=== PATIENT | male | born 1965 | race Caucasian/White ===

== ENCOUNTER 2017-09-10 09:12 | Outpatient (CLI) | payer BC ==
--- NOTE | 2017-09-10 11:09 | PRG ---
DATE OF SERVICE: 09/10/2017 HISTORY: Mr. Adrian Fonseca is a very pleasant 52-year-old gentleman who presents to the [facility] for evaluation of plantar wounds of the right and left feet. The patient previously stated that he was admitted to [facility] on 04/19/2017 for left lower extremity cellulitis . The patient stated that he was admitted after antibiotic injections as an outpatient failed to tr eat his left lower extremity cellulitis adequately. The patient stated that during his hospital sta y, the plantar wound of his right foot developed. The patient stated that he has had a chronic ulce ration of his left midfoot for several years. He stated that this ulceration developed 1 year after surgery by Dr. John for Charcot foot and ankle in 10/2013. Since the patient's last visit, Mr. Fonseca has been performing dressing changes of Aquacel AG for both ulcerations on a daily basis afte r cleansing and irrigation. PHYSICAL EXAMINATION: VITAL SIGNS: Temperature 98.0, pulse 84, respirations 18, blood pressure 135/92. Accu-Chek 363. EXTREMITIES: The ulceration of the plantar surface of the right foot appears to be healing without complications or any signs of infection. The ulceration of the plantar surface of the left foot roxana sures approximately 1.6 x 1.3 cm. The dimensions of the wound at the time of the patient's last vis it were approximately 1.7 x 2.0 cm. Granulation tissue is present within the wound margins. Nonvia ble tissue at the periphery of the wound was debrided with an excisional partial thickness debrideme nt with the use of scissors. No purulent drainage is associated with the wound. No erythema of the skin surrounding the wound is present. No maceration of the skin of the periwound is noted. No si gnificant edema of the left foot is present on exam today. ASSESSMENT AND PLAN: 1. Plantar ulcerations of right and left feet as described above for both ulcerations. Dressing ch anges of Aquacel AG, 4 x 4s and Kerlix are to be performed on a daily basis after cleansing and irri gation. Arrangements will be made again for the home delivery of dressing supplies. I will see Mr. Fonseca again in two weeks. The patient has been fitted with shoes to provide for more optimal offl oading of the left plantar ulcerations. At the time of the patient's visit in 2 weeks, consideratio n will be given to treatment with a bioengineered skin substitute, specifically Apligraf. 2. Diabetes mellitus. The patient's Accu-Chek in clinic today is 363. The patient has been remind ed that for optimal wound healing, his blood glucoses should remain below 150. 3. Charcot's arthropathy on the left. 4. Peripheral vascular disease. 5. Left lower extremity cellulitis. The patient has received IV antibiotics as per Dr. Marvel trujillo of Infectious Diseases.
[2017-09-10] MEDS ORDERED: Sodium Chloride 0.9% 15 ML NEB ONE (17:01)
== END 2017-09-10 09:13 | disposition home or self-care (01) ==
LOC: WCC 09:12
PROVIDERS: ATTEND Family Medicine
DX: L97.519 Non-pressure chronic ulcer of other part of right foot with unspecified severity (principal); L97.529 Non-pressure chronic ulcer of other part of left foot with unspecified severity; E11.621 Type 2 diabetes mellitus with foot ulcer; M14.672 Charcot's joint, left ankle and foot; I73.9 Peripheral vascular disease, unspecified; L03.116 Cellulitis of left lower limb
CPT/HCPCS: 36416; 97597; A4218

== ENCOUNTER 2017-09-22 10:08 | Outpatient (CLI) | payer BC ==
--- NOTE | 2017-09-22 12:16 | PRG ---
DATE OF SERVICE: 09/22/2017 HISTORY: Mr. Adrian Fonseca is a very pleasant 52-year-old gentleman who presents to the [facility] for evaluation of plantar wounds of the right and left feet. The patient previously stated that martha cruz was admitted to [facility] on 04/19/2017 for left lower extremity celluliti s. The patient stated that he was admitted after antibiotic injections as an outpatient fail to timoteo at his left lower extremity cellulitis adequately. The patient stated that during his hospital stay , the plantar wound of his right foot developed. The patient stated that he has had a chronic ulcer ation of his left midfoot for several years. He stated that this ulceration developed 1 year after surgery by Dr. John for Charcot foot and ankle in 10/2013. Since the patient's last visit, Mr. Martha zeng had been performing dressing changes of Aquacel AG for both ulcerations on a daily basis after cleansing and irrigation. Today, the patient states he was seen in [facility] for cellulitis of th e left lower extremity. PHYSICAL EXAMINATION: VITAL SIGNS: Temperature 97.6, pulse 75, respirations 18, blood pressure 132/71. Accu-Chek 237. EXTREMITIES: The ulceration of the plantar surface of the right foot appears to be healing without complications or any signs of infection. The ulceration of the plantar surface of the left foot roxana sures approximately 1.5 x 1.5 cm. The dimensions of the wound at the time of the patient's last vis it were approximately 1.6 x 1.3 cm. Granulation tissue is present within the wound margins. Nonvia ble tissue at the periphery of the wound was debrided with an excisional partial-thickness debrideme nt with the use of scissors. No purulent drainage is associated with the wound. No erythema of the skin surrounding the wound is present. Maceration of the skin of the periwound is noted. No signi ficant edema of the left foot is present on exam today. Apligraf was applied to the ulceration of t he plantar surface of the left foot followed by Adaptic touch, a gauze bolster, 4 x 4's, Kerlix, and an Constantine bandage. ASSESSMENT AND PLAN: 1. Plantar ulcerations of right and left feet. Dressing changes of Aquacel AG, 4 x 4s and Kerlix f or the ulceration of the plantar surface of the right foot will be continued on a daily basis after cleansing and irrigation. Apligraf was applied to the ulceration of the plantar surface of the left foot. The dressings applied in clinic today are to be discontinued in 1 week and dressing changes of Aquacel AG, 4 x 4s and Kerlix resumed on a daily basis after cleansing and irrigation. I will se e Mr. Fonseca again after he has returned from his trip which will be in approximately 6 weeks. Over this period of time, the patient will be taking clindamycin 150 mg 2 p.o. t.i.d. 2. Diabetes mellitus. The patient's Accu-Chek in clinic today is 237. The patient has been remind ed that for optimal wound healing, his blood glucoses should remain below 150. 3. Charcot's arthropathy on the left. 4. Peripheral vascular disease. 5. Left lower extremity cellulitis. The patient has received IV antibiotics as per Dr. Marvel trujillo of Infectious Diseases. As stated above, the patient was also seen in [facility] ER for left lower extremity cellulitis over the past weekend.
[2017-09-22] MEDS ORDERED: Sodium Chloride 0.9% 15 ML NEB ONE (22:47)
== END 2017-09-22 10:09 | disposition home or self-care (01) ==
LOC: WCC 10:08
PROVIDERS: ATTEND Family Medicine
DX: E11.621 Type 2 diabetes mellitus with foot ulcer (principal); L97.429 Non-pressure chronic ulcer of left heel and midfoot with unspecified severity; L97.419 Non-pressure chronic ulcer of right heel and midfoot with unspecified severity; E11.51 Type 2 diabetes mellitus with diabetic peripheral angiopathy without gangrene; L03.116 Cellulitis of left lower limb; M14.60 Charcot's joint, unspecified site
CPT/HCPCS: 15275; 36416; A4218; Q4101-KX-JC

== ENCOUNTER 2017-12-15 08:33 | Outpatient (CLI) | payer BC ==
--- NOTE | 2017-12-15 18:45 | PRG ---
DATE OF SERVICE: 12/15/2017 HISTORY: Mr. Adrian Fonseca is a very pleasant 52-year-old gentleman, who presents to the [facility] for evaluation of plantar wounds of the right and left feet. The patient states that he returned h ome from his trip on 11/16/2017. He states that he subsequently became ill with the flu. He states that 4 days after becoming ill with the flu, he developed an infectious process of his left lower ext remity for which he was seen at [facility]. He states that he received vancomycin intravenously of 3 doses, which were 12 hours apart. The patient states that he is taking p.o. antibiotics as per Dr. Marvel Ovalle of Infectious Diseases. The patient states that he has a followup appointment with Dr. Ovalle later this afternoon. PHYSICAL EXAMINATION: VITAL SIGNS: Temperature 97.5, respirations 18, blood pressure 132/79. Accu-Chek is 197. EXTREMITIES: An ulceration of the plantar surface of the right foot is present, which measures appro ximately 2.0 x 0.8 cm. The ulceration of the plantar surface of the left midfoot measures approximat afia 2.1 x 1.5 cm. The dimensions of the wound at the time of the patient's last visit were approxima tely 1.5 x 1.5 cm. Granulation tissue is present within the wound margins. Nonviable tissue at the periphery of the wound was debrided with an excisional partial thickness debridement with the use of scissors. No purulent drainage is associated with the wound. No erythema of the skin surrounding th e wound is present. No maceration of the skin of the periwound is noted. A dorsalis pedis pulse is easily palpable on the left. No significant edema of the left foot is present on exam today. ASSESSMENT AND PLAN: 1. Plantar ulcerations of right and left feet. Dressing changes of a silver containing dressing blanche l be initiated today. A 4 x 4s and Kerlix will be utilized as secondary dressings. These dressing c hanges are to be performed for the plantar ulcerations of the right and left feet on a daily basis af ter cleansing and irrigation. I will see Mr. Fonseca again after he has been seen in consultation by Dr. Chris John. At this time, consideration will be given to treatment with a bioengineered skin substitute in conjunction with negative pressure therapy. The patient understands and is in agreemen t with the preceding treatment plan. I have also discussed the treatment plan with Dr. Marvel Ovalle of Infectious Diseases. 2. Diabetes mellitus. The patient's Accu-Chek in clinic today is 197. The patient has been reminde d that for optimal wound healing, his blood glucoses should remain below 150. 3. Charcot's arthropathy on the left. 4. Peripheral vascular disease. 5. Left lower extremity cellulitis. As stated above, the patient is taking p.o. antibiotics as per Dr. Marvel Ovalle of Infectious Diseases. The patient has also received IV antibiotics after being s een at [facility].
== END 2017-12-15 08:34 | disposition home or self-care (01) ==
LOC: WCC 08:33
PROVIDERS: ATTEND Family Medicine
DX: E11.621 Type 2 diabetes mellitus with foot ulcer (principal); L97.529 Non-pressure chronic ulcer of other part of left foot with unspecified severity; L97.519 Non-pressure chronic ulcer of other part of right foot with unspecified severity; E11.610 Type 2 diabetes mellitus with diabetic neuropathic arthropathy; I73.9 Peripheral vascular disease, unspecified; L03.116 Cellulitis of left lower limb
CPT/HCPCS: 97602

== ENCOUNTER 2017-12-29 08:33 | Outpatient (CLI) | payer BC ==
--- NOTE | 2017-12-29 10:05 | PRG ---
DATE OF SERVICE: 12/29/2017 HISTORY: Mr. Adrian Fonseca is a very pleasant 52-year-old gentleman who presents to the Wound Center for evaluation of a plantar ulceration of the left foot. The patient has been performing dressing c hanges of Silverlon since his last visit to the Wound Center. The patient has no complaints today. He denies any fever or chills. PHYSICAL EXAMINATION: VITAL SIGNS: Temperature 98.0, pulse 101, respirations 18, blood pressure 166/94. Accu-Chek 196. EXTREMITIES: An ulceration of the plantar surface of the left foot is present which measures approxi mately 2.0 x 1.9 cm. The dimensions of the ulceration of the plantar surface of the left mid foot at the time of the patient's visit on 12/15/2017 were approximately 2.1 x 1.5 cm. Granulation tissue i s present within the wound margins. Desiccated tissue at the periphery of the wound was excised with the use of scissors. No purulent drainage is associated with the wound. No erythema of the skin loera rrounding the wound is present. No maceration of the skin of the periwound is noted. A posterior ti bial pulse is easily palpable on the left. No significant edema of the left foot is present on exam today. Dermagraft was applied to the ulceration of the plantar surface of the left foot in a single layer followed by Adaptic touch and the GranuFoam of the wound VAC. ASSESSMENT AND PLAN: 1. Plantar ulceration of left midfoot. Dermagraft was applied to the wound bed of the ulceration to day. The patient is also receiving negative pressure therapy for his ulceration. The wound VAC will be placed to settings of 125 mmHg, continuous. The patient will return to the Wound Center for a dr pugh change of the wound VAC in 3 days. I will see Mr. Fonseca again in 1 week. At this time, cons ideration will be given to another placement of Dermagraft. 2. Diabetes mellitus. The patient's Accu-Chek in clinic today is 196. The patient has been reminde d that for optimal wound healing, his blood glucoses should remain below 150. 3. Charcot's arthropathy on the left. 4. Peripheral vascular disease. 5. Left lower extremity cellulitis. The patient has taken p.o. antibiotics as per Dr. Marvel Ovalle of Infectious Diseases. The patient also received IV antibiotics after being seen at [facility].
[2017-12-29] MEDS ORDERED: Sodium Chloride 0.9% 15 ML NEB ONE (11:11)
== END 2017-12-29 08:34 | disposition home or self-care (01) ==
LOC: WCC 08:33
PROVIDERS: ATTEND Family Medicine
DX: E11.621 Type 2 diabetes mellitus with foot ulcer (principal); M14.60 Charcot's joint, unspecified site; E11.51 Type 2 diabetes mellitus with diabetic peripheral angiopathy without gangrene; L97.429 Non-pressure chronic ulcer of left heel and midfoot with unspecified severity; L03.116 Cellulitis of left lower limb
CPT/HCPCS: 15275; A4218; Q4106-KX-JC

== ENCOUNTER 2017-12-30 14:06 | Outpatient (CLI) | payer BC | END 2017-12-30 14:07 | disposition home or self-care (01) | LOC: WCC 14:06 | PROVIDERS: ATTEND Family Medicine | DX: E11.621 Type 2 diabetes mellitus with foot ulcer (principal); L97.429 Non-pressure chronic ulcer of left heel and midfoot with unspecified severity ==

== ENCOUNTER 2018-01-01 09:04 | Outpatient (CLI) | payer BC ==
[2018-01-01] MEDS ORDERED: Sodium Chloride 0.9% 15 ML NEB ONE (14:28)
== END 2018-01-01 09:05 | disposition home or self-care (01) ==
LOC: WCC 09:04
PROVIDERS: ATTEND Family Medicine
DX: E11.621 Type 2 diabetes mellitus with foot ulcer (principal); L97.529 Non-pressure chronic ulcer of other part of left foot with unspecified severity
CPT/HCPCS: 97605; A4218

== ENCOUNTER 2018-01-05 08:55 | Outpatient (CLI) | payer BC ==
[2018-01-05] MEDS ORDERED: Sodium Chloride 0.9% 15 ML NEB ONE (14:26)
== END 2018-01-05 08:56 | disposition home or self-care (01) ==
LOC: WCC 08:55
PROVIDERS: ATTEND Family Medicine
DX: E11.621 Type 2 diabetes mellitus with foot ulcer (principal); L97.429 Non-pressure chronic ulcer of left heel and midfoot with unspecified severity
CPT/HCPCS: 97605; A4218

== ENCOUNTER 2018-01-08 10:58 | Outpatient (CLI) | payer BC ==
--- NOTE | 2018-01-08 14:20 | PRG ---
DATE OF SERVICE: 01/08/2018 HISTORY: Mr. Adrian Fonseca is a very pleasant 52-year-old gentleman who presents to the Wound Center for evaluation of a plantar ulceration of the left mid foot. The patient is now receiving treatment with Dermagraft in conjunction with negative pressure therapy. The patient has no complaints today. He denies any fever or chills. PHYSICAL EXAMINATION: VITAL SIGNS: Temperature 97.4, pulse 89, respirations 18, blood pressure 172/95. Accu-Chek 197. EXTREMITIES: An ulceration of the plantar surface of the left mid foot is present, which measures ap proximately 1.6 x 1.4 cm. The dimensions of the wound at the time of the patient's visit on 12/29/19 18 were approximately 2.0 x 1.9 cm. Granulation tissue is present within the wound margins. No puru lent drainage is associated with the wound. No erythema of the skin surrounding the wound is present . Maceration of the skin of the periwound is noted. No significant edema of the left foot is presen t on exam today. Slight undermining is present from the 6 to 12 o'clock position. Dermagraft was ap plied to the ulceration of the plantar surface of the left mid foot in 2 layers followed by Adaptic t ouch and the GranuFoam of the wound VAC. The first layer of Dermagraft was loosely packed into the r egion of undermining from 6 to 12 o'clock. ASSESSMENT AND PLAN: 1. Plantar ulceration of left mid foot. Dermagraft was applied to the wound bed of the ulceration t felisha. The patient is also receiving negative pressure therapy for the ulceration. The wound VAC to be placed to settings of 125 mmHg continuous. The patient will return to the Wound Center for a dres sing change of the wound VAC in 4 days. I will see Mr. Fonseca again in one week. At this time, cons ideration will be given to another placement of Dermagraft. 2. Diabetes mellitus. The patient's Accu-Chek in clinic today is 197. The patient has been reminde d that for optimal wound healing, his blood glucoses should remain below 150. 3. Charcot's arthropathy on the left. 4. Peripheral vascular disease. 5. Left lower extremity cellulitis. The patient has taken p.o. antibiotics as per Dr. Marvel Ovalle of Infectious Diseases. The patient states that he has been treated for left lower extremity cellul itis on 4 occasions with IV antibiotics. After being seen in the Wound Center.
[2018-01-09] MEDS ORDERED: Sodium Chloride 0.9% 15 ML NEB ONE (14:35)
== END 2018-01-08 10:59 | disposition home or self-care (01) ==
LOC: WCC 10:58
PROVIDERS: ATTEND Family Medicine
DX: E11.621 Type 2 diabetes mellitus with foot ulcer (principal); L97.429 Non-pressure chronic ulcer of left heel and midfoot with unspecified severity; E11.610 Type 2 diabetes mellitus with diabetic neuropathic arthropathy; I73.9 Peripheral vascular disease, unspecified; L03.116 Cellulitis of left lower limb
CPT/HCPCS: Q4106-KX-JC

== ENCOUNTER 2018-01-12 08:55 | Outpatient (CLI) | payer BC ==
[2018-01-12] MEDS ORDERED: Sodium Chloride 0.9% 15 ML NEB ONE (09:00)
== END 2018-01-12 08:56 | disposition home or self-care (01) ==
LOC: WCC 08:55
PROVIDERS: ATTEND Family Medicine
DX: E11.621 Type 2 diabetes mellitus with foot ulcer (principal); L97.429 Non-pressure chronic ulcer of left heel and midfoot with unspecified severity; Z88.2 Allergy status to sulfonamides; Z88.8 Allergy status to other drugs, medicaments and biological substances
CPT/HCPCS: 36416; 97606; A4218

== ENCOUNTER 2018-01-15 08:50 | Outpatient (CLI) | payer BC ==
--- NOTE | 2018-01-15 10:57 | PRG ---
DATE OF SERVICE: 01/15/2018 HISTORY: Mr. Adrian Fonseca is a very pleasant 52-year-old gentleman who presents to the Wound Center for evaluation of an ulceration of the plantar surface of the left midfoot. The patient is receivin g treatment with Dermagraft in conjunction with negative pressure therapy. The patient states that zoie cruz tripped on his wound VAC 2 days ago. The patient presents to clinic today with the ulceration dres sed with gauze and tape. The patient has no other complaints today. He denies any fever or chills. PHYSICAL EXAMINATION: VITAL SIGNS: Temperature 98.3, pulse 85, respirations 18, blood pressure 121/75, Accu-Chek 249. EXTREMITIES: An ulceration of the plantar surface of the left midfoot is present which measures appr oximately 1.8 x 2.1 cm. The dimensions of the wound at the time of the patient's visit on 01/08/2018 were approximately 1.6 x 1.4 cm. Granulation tissue is present within the wound margins. Necrotic and nonviable tissue present within the wound margins was debrided with an excisional full-thickness debridement with the use of a curette and scissors. Desiccated tissue at the periphery of the wound was excised with the use of scissors. No purulent drainage is associated with the wound. No erythem a of the skin surrounding the wound is present. No maceration of the skin of the periwound is noted. No edema of the left foot is present on exam today. Less undermining is associated with the wound today than at the time of the patient's visit on 01/08/2018. Dermagraft was applied to the ulceratio n of the plantar surface of the left midfoot in a single layer followed by Adaptic touch and the Gran uFoam of the wound VAC. ASSESSMENT AND PLAN: 1. Plantar ulceration of left midfoot. Dermagraft was applied to the wound bed of the ulceration to day. The patient is also receiving negative pressure therapy for the ulceration. The wound VAC will be placed to settings of 125 mmHg, continuous. The patient is to continue to receive dressing bush es of the wound VAC 2 times per week here in the Wound Center. I will see Mr. Fonseca again in two we eks. At this time, consideration will be given to another placement of Dermagraft. 2. Diabetes mellitus. The patient's Accu-Chek in clinic today is 249. The patient has been reminde d that for optimal wound healing, his blood glucoses should remain below 150. 3. Charcot's arthropathy on the left. 4. Peripheral vascular disease.
== END 2018-01-15 08:51 | disposition home or self-care (01) ==
LOC: WCC 08:50
PROVIDERS: ATTEND Family Medicine
DX: E11.621 Type 2 diabetes mellitus with foot ulcer (principal); L97.429 Non-pressure chronic ulcer of left heel and midfoot with unspecified severity; M14.672 Charcot's joint, left ankle and foot; I73.9 Peripheral vascular disease, unspecified
CPT/HCPCS: 15275; 36416; Q4106-KX-JC

== ENCOUNTER 2018-01-19 09:13 | Outpatient (CLI) | payer BC ==
[~2018-01-19 09:13] MED LIST: Sodium Chloride 0.9% 15 ML NEB ONE
== END 2018-01-19 09:14 | disposition home or self-care (01) ==
LOC: WCC 09:13
PROVIDERS: ATTEND Family Medicine
DX: E11.621 Type 2 diabetes mellitus with foot ulcer (principal); L97.429 Non-pressure chronic ulcer of left heel and midfoot with unspecified severity; Z88.2 Allergy status to sulfonamides
CPT/HCPCS: 97606; A4218

== ENCOUNTER 2018-01-22 08:49 | Outpatient (CLI) | payer BC ==
[2018-01-22] MEDS ORDERED: Sodium Chloride 0.9% 15 ML NEB ONE (16:31)
== END 2018-01-22 08:50 | disposition home or self-care (01) ==
LOC: WCC 08:49
PROVIDERS: ATTEND Family Medicine
DX: E11.621 Type 2 diabetes mellitus with foot ulcer (principal); L97.429 Non-pressure chronic ulcer of left heel and midfoot with unspecified severity; Z88.2 Allergy status to sulfonamides
CPT/HCPCS: 97605; A4218

== ENCOUNTER 2018-01-26 09:02 | Outpatient (CLI) | payer BC ==
[2018-01-26] MEDS ORDERED: Sodium Chloride 0.9% 15 ML NEB ONE (19:49)
== END 2018-01-26 09:03 | disposition home or self-care (01) ==
LOC: WCC 09:02
PROVIDERS: ATTEND Family Medicine
DX: S91.302D Unspecified open wound, left foot, subsequent encounter (principal); S91.301D Unspecified open wound, right foot, subsequent encounter
CPT/HCPCS: 36416; 97605; A4218

== ENCOUNTER 2018-01-29 08:35 | Outpatient (CLI) | payer BC ==
--- NOTE | 2018-01-29 10:00 | PRG ---
DATE OF SERVICE: 01/29/2018 HISTORY: Mr. Adrian Fonseca is a very pleasant 52-year-old gentleman who presents to the Wound Center for evaluation of an ulceration of the plantar surface of the left midfoot. The patient is receivin g treatment with Dermagraft in conjunction with negative pressure therapy. Mr. Fonseca has no complai nts today. He denies any fever or chills. PHYSICAL EXAMINATION: VITAL SIGNS: Temperature 97.4, pulse 91, respirations 16, blood pressure 177/99. Accu-Chek 210. EXTREMITIES: An ulceration of the plantar surface of the left midfoot is present which measures appr oximately 2.3 x 2.1 cm. The dimensions of the wound at the time of the patient's visit on 01/15/2018 were approximately 1.8 x 2.1 cm. Granulation tissue is present within the wound margins. Necrotic and nonviable tissue present within the wound margins was debrided with an excisional full-thickness debridement with the use of scissors. Callus at the periphery of the wound was excised with the use of scissors. No purulent drainage is associated with the wound. No erythema of the skin surrounding the wound is present. Maceration of the skin of the periwound is noted. No significant edema of th e left foot is present on exam today. No undermining is associated with the wound on today's exam. Dermagraft was applied to the ulceration of the plantar surface of the left midfoot in a single layer followed by Adaptic touch and the GranuFoam of the wound VAC. ASSESSMENT AND PLAN: 1. Plantar ulceration of left midfoot. Dermagraft was applied to the wound bed of the ulceration to day. The patient is also receiving negative pressure therapy for the ulceration. The wound VAC will be placed to settings of 125 mmHg, continuous. The patient is to continue to receive dressing bush es of the wound VAC 2 times per week here in the Wound Center. I will see Mr. Fonseca again in one we ek. At this time, consideration will be given to another placement of Dermagraft. 2. Diabetes mellitus. The patient's Accu-Chek in clinic today is 210. The patient has been reminde d that for optimal wound healing, his blood glucoses should remain below 150. 3. Charcot's arthropathy on the left. 4. Peripheral vascular disease.
[2018-01-30] MEDS ORDERED: Sodium Chloride 0.9% 15 ML NEB ONE (12:25)
== END 2018-01-29 08:36 | disposition home or self-care (01) ==
LOC: WCC 08:35
PROVIDERS: ATTEND Family Medicine
DX: E11.621 Type 2 diabetes mellitus with foot ulcer (principal); L97.429 Non-pressure chronic ulcer of left heel and midfoot with unspecified severity; I73.9 Peripheral vascular disease, unspecified; M14.672 Charcot's joint, left ankle and foot
CPT/HCPCS: 15275

== ENCOUNTER 2018-02-02 08:58 | Outpatient (CLI) | payer BC | END 2018-02-02 08:59 | disposition home or self-care (01) | LOC: WCC 08:58 | PROVIDERS: ATTEND Family Medicine | DX: E11.621 Type 2 diabetes mellitus with foot ulcer (principal); L97.429 Non-pressure chronic ulcer of left heel and midfoot with unspecified severity | CPT/HCPCS: 97606; A4218 ==

== ENCOUNTER 2018-02-05 08:41 | Outpatient (CLI) | payer BC ==
[2018-02-05] MEDS ORDERED: Sodium Chloride 0.9% 15 ML NEB ONE (09:00)
--- NOTE | 2018-02-05 10:54 | PRG ---
DATE OF SERVICE: 02/05/2018 HISTORY: Mr. Adrian Fonseca is a very pleasant 52-year-old gentleman who presents to the Wound Center for evaluation of an ulceration of the plantar surface of the left midfoot. The patient is receiving treatment with Dermagraft in conjunction with negative pressure therapy. The patient has no complaints today. He denies any fever or chills. PHYSICAL EXAMINATION: VITAL SIGNS: Temperature 98.4, pulse 89, respirations 18, blood pressure 172/ 91. Accu-Chek 207. EXTREMITIES: An ulceration of the plantar surface of the left midfoot is present which measures approximately 2.8 x 2.2 cm. The dimensions of the wound at the time of the patient's visit on 01/29/2018 were approximately 2.3 x 2.1 cm. Granulation tissue is present within the wound margins. Necrotic and nonviable tissue present within the wound margins was debrided with an excisional full-thickness debridement with the use of a curet and scissors. A sample of granulation tissue was excised with the use of scissors and sent for aerobic and anaerobic cultures. No purulent drainage is associated with the wound. No erythema of the skin surrounding the wound is present. No maceration of the skin of the periwound is noted. No significant edema of the left foot is present on exam today. No undermining is associated with the wound on today's exam. Dermagraft was applied to the ulceration of the plantar surface of the left midfoot in 3 layers followed by Adaptic touch and the GranuFoam of the wound VAC. ASSESSMENT AND PLAN: 1. Plantar ulceration of left midfoot. Dermagraft was applied to the wound bed of the ulceration today. The patient is also receiving negative pressure therapy for the ulceration. The wound VAC will be placed to settings of 125 mmHg, continuous. The patient is to continue to receive dressing changes of the wound VAC 2 times per week here in the Wound Center. I will see Mr. Fonseca again in one week. At this time, consideration will be given to another placement of Dermagraft. 2. Diabetes mellitus. The patient's Accu-Chek in clinic today is 207. The patient has been reminded that for optimal wound healing, his blood glucoses should remain below 150. 3. Charcot's arthropathy on the left. 4. Peripheral vascular disease. [facility]
== END 2018-02-05 08:42 | disposition home or self-care (01) ==
LOC: WCC 08:41
PROVIDERS: ATTEND Family Medicine
DX: E11.621 Type 2 diabetes mellitus with foot ulcer (principal); L97.429 Non-pressure chronic ulcer of left heel and midfoot with unspecified severity; I73.9 Peripheral vascular disease, unspecified; M14.672 Charcot's joint, left ankle and foot
CPT/HCPCS: 15275; 87070; 87076; 87077; 87186; 87205; A4218; Q4106-KX-JC

== ENCOUNTER 2018-02-09 09:23 | Outpatient (CLI) | payer BC ==
[2018-02-09] MEDS ORDERED: Sodium Chloride 0.9% 15 ML NEB ONE (19:54)
== END 2018-02-09 09:24 | disposition home or self-care (01) ==
LOC: WCC 09:23
PROVIDERS: ATTEND Family Medicine
DX: E11.621 Type 2 diabetes mellitus with foot ulcer (principal); L97.429 Non-pressure chronic ulcer of left heel and midfoot with unspecified severity
CPT/HCPCS: 97605; A4218

== ENCOUNTER 2018-02-12 09:17 | Outpatient (CLI) | payer BC ==
--- NOTE | 2018-02-12 10:05 | PRG ---
DATE OF SERVICE: 02/12/2018 HISTORY: Mr. Adrian Fonseca is a very pleasant 52-year-old gentleman who presents to the Wound Center fo r evaluation of an ulceration of the plantar surface of the left mid foot. The patient is currently receiving treatment with Dermagraft in conjunction with negative pressure therapy. The patient has n o complaints today. He denies any fever or chills. PHYSICAL EXAMINATION: VITAL SIGNS: Temperature 98.0, pulse 85, respirations 19, blood pressure 137/84. Accu-Chek 198. EXTREMITIES: An ulceration of the plantar surface of the left mid foot is present which measures ben roximately 2.8 x 2.1 cm. The dimensions of the wound at the time of the patient's visit on 8 were approximately 2.8 x 2.2 cm. Granulation tissue is present within the wound margins. No purul ent drainage is associated with the wound. No erythema of the skin surrounding the wound is present. No maceration of the skin of the periwound is noted. No significant edema of the left foot is pres ent on exam today. No undermining is associated with the wound on exam today. Dermagraft was applie d to the ulceration of the plantar surface of the left mid foot in 3 layers followed by Adaptic touch and the GranuFoam of the wound VAC. ASSESSMENT AND PLAN: 1. Plantar ulceration of left midfoot. Dermagraft was applied to the wound bed of the ulceration to day. The patient is also receiving negative pressure therapy for the ulceration. The wound VAC will be placed to settings of 125 mmHg, continuous. The patient is to continue to receive dressing bush es of the wound VAC 2 times per week here in the Wound Center. I will see Mr. Fonseca again in 1 week . At this time, consideration will be given to another placement of Dermagraft. 2. Diabetes mellitus. The patient's Accu-Chek in clinic today is 198. The patient has been reminde d that for optimal wound healing, his blood glucoses should remain below 150. 3. Charcot's arthropathy on the left. 4. Peripheral vascular disease.
== END 2018-02-12 09:18 | disposition home or self-care (01) ==
LOC: WCC 09:17
PROVIDERS: ATTEND Family Medicine
DX: E11.621 Type 2 diabetes mellitus with foot ulcer (principal); L97.429 Non-pressure chronic ulcer of left heel and midfoot with unspecified severity; E11.610 Type 2 diabetes mellitus with diabetic neuropathic arthropathy; E11.51 Type 2 diabetes mellitus with diabetic peripheral angiopathy without gangrene; I73.9 Peripheral vascular disease, unspecified
CPT/HCPCS: 15275; Q4106-KX-JC

== ENCOUNTER 2018-02-16 08:42 | Outpatient (CLI) | payer BC ==
[2018-02-16] MEDS ORDERED: Sodium Chloride 0.9% 15 ML NEB ONE (18:58)
== END 2018-02-16 08:43 | disposition home or self-care (01) ==
LOC: WCC 08:42
PROVIDERS: ATTEND Family Medicine
DX: E11.621 Type 2 diabetes mellitus with foot ulcer (principal); L97.429 Non-pressure chronic ulcer of left heel and midfoot with unspecified severity; Z88.2 Allergy status to sulfonamides
CPT/HCPCS: 36416; 97605; A4218

== ENCOUNTER 2018-02-19 08:49 | Outpatient (CLI) | payer BC ==
[2018-02-19] MEDS ORDERED: Sodium Chloride 0.9% 15 ML NEB ONE (09:00)
--- NOTE | 2018-02-19 11:05 | PRG ---
DATE OF SERVICE: 02/19/2018 HISTORY: Mr. Adrian Fonseca is a very pleasant 52-year-old gentleman who presents to the Wound Center for evaluation of an ulceration of the plantar surface of the left midfoot. The patient is presently receiving treatment with Dermagraft in conjunction with negative pressure therapy. Mr. Fonseca has no complaints today. He denies any fever or chills. PHYSICAL EXAMINATION: VITAL SIGNS: Temperature 98.1, pulse 87, respirations 18, blood pressure 136/ 91. Accu-Chek 197. EXTREMITIES: An ulceration of the plantar surface of the left midfoot is present which measures approximately 2.6 x 2.2 cm. The dimensions of the wound at the time of the patient's visit on 02/12/2018 were approximately 2.8 x 2.1 cm. Granulation tissue is present within the wound margins. No purulent drainage is associated with the wound. No erythema of the skin surrounding the wound is present. No maceration of the skin of the periwound is noted. No significant edema of the left foot is present on exam today. No undermining is associated with the wound on today's exam. ASSESSMENT AND PLAN: 1. Plantar ulceration of left midfoot. 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 He states he will return in approximately 2 months. At this time, the resumption of therapy with Dermagraft in conjunction with the wound VAC will be considered. Until then, the patient is to perform dressing changes of Silverlon, 4 x 4s, Kerlix, and an Constantine bandage on a daily basis after cleansing and irrigation. Arrangements will also be made for the home delivery of dressing supplies prior to the patient's trip. Mr. Fonseca understands and is in agreement with the preceding treatment plan. 2. Diabetes mellitus. The patient's Accu-Chek in clinic today is 197. The patient has been reminded that for optimal wound healing, his blood glucoses should remain below 150. 3. Charcot's arthropathy on the left. 4. Peripheral vascular disease. MTDD
== END 2018-02-19 08:50 | disposition home or self-care (01) ==
LOC: WCC 08:49
PROVIDERS: ATTEND Family Medicine
DX: E11.621 Type 2 diabetes mellitus with foot ulcer (principal); L97.429 Non-pressure chronic ulcer of left heel and midfoot with unspecified severity; E11.610 Type 2 diabetes mellitus with diabetic neuropathic arthropathy; E11.51 Type 2 diabetes mellitus with diabetic peripheral angiopathy without gangrene; I73.9 Peripheral vascular disease, unspecified
CPT/HCPCS: 97605; A4218

== ENCOUNTER 2018-05-28 11:00 | Outpatient (CLI) | payer BC ==
--- NOTE | 2018-05-28 12:12 | PRG ---
DATE OF SERVICE: 05/28/2018 HISTORY: Mr. Adrian Fonseca is a very pleasant 53-year-old gentleman, who presents to the [facility] for evaluation of an ulceration of the plantar surface of the left midfoot. The patient has return ed from his trip to [facility]. The patient states that, while on the ship, he was running low on h is supply of p.o. antibiotics and was not able to take penicillin as prescribed by Dr. Ovalle. The pa leonides states that, after returning to [place], the ulceration of the plantar surface of the l eft midfoot worsened in its appearance. The patient has been performing dressing changes of Silverlo n for his wound of the plantar surface of the left midfoot. PHYSICAL EXAMINATION: VITAL SIGNS: Temperature 97.7, pulse 87, respirations 19, blood pressure 137/78. Accu-Chek 130. EXTREMITIES: An ulceration of the plantar surface of the left midfoot is present, which measures ben roximately 2.0 x 1.5 cm. Granulation tissue is present within the wound margins. No purulent draina ge is associated with the wound. Erythema of the skin surrounding the wound is present. No macerati on of the skin of the periwound is noted. Edema of the left foot is present on exam today. No bone is visible or palpable within the wound margins. ASSESSMENT AND PLAN: 1. Plantar ulceration of left midfoot. Erythema of the skin surrounding the wound is present and ar rangements will be made for MRI of the left foot with and without contrast to look for findings sugge stive of osteomyelitis. Until the results of the MRI are available, the patient has been instructed to perform dressing changes of Medihoney, gauze, ABD, and Kerlix for the ulceration of the plantar loera rface of the left midfoot. The patient will be contacted or the patient will contact the clinic in o rder to obtain the MRI results. The patient states he is now taking [facility]. The patient understands and is in agreement with the preceding treatment plan. 2. Diabetes mellitus. The patient's Accu-Chek in clinic today is 130. The patient has been reminde d that for optimal wound healing, his blood glucoses should remain below 150. 3. Charcot's arthropathy on the left. 4. Peripheral vascular disease.
== END 2018-05-28 11:01 | disposition home or self-care (01) ==
LOC: WCC 11:00
PROVIDERS: ATTEND Family Medicine
DX: E11.621 Type 2 diabetes mellitus with foot ulcer (principal); L97.429 Non-pressure chronic ulcer of left heel and midfoot with unspecified severity; E11.610 Type 2 diabetes mellitus with diabetic neuropathic arthropathy; I73.9 Peripheral vascular disease, unspecified
CPT/HCPCS: 87070; 87077; 87186; 87205; 97602

== ENCOUNTER 2018-06-01 08:18 | Outpatient (CLI) | payer BC ==
--- NOTE | 2018-06-01 11:28 | MRI ---
MR OF THE LEFT FOOT WITH AND WITHOUT CONTRAST: History: Diabetic foot ulcer. Concern for osteomyelitis. Comparison: 04-21-17 FINDINGS: 20 cc of Mulithance was administered. Susceptibility artifact along the medial aspect of the hindfoot and midfoot limits image detail. Navi on artifact also limits image detail. There is a dissecting superficial ulceration involving the plantar surface of the lateral midfoot roxana suring 3.7 x 1.6 cm with gas seen within the ulceration base just lateral to the plantar fascial band on image 12 of series 12. There is no overt change of osteomyelitis. There is prominent degenerative changes of the visualized midfoot. There is edema involving the ankle, distal foreleg and dorsal lexis t which may be related to lymphadenoma or cellulitis. IMPRESSION: 1. Dissecting plantar ulceration along the plantar aspect of the lateral midfoot with small locule of gas seen within the ulcer base. There is no overt changes of osteomyelitis. 2. Nonspecific edema within the subcutaneous tissues of the dorsal foot, ankle and distal foreleg. POS: [facility]
== END 2018-06-01 08:19 | disposition home or self-care (01) ==
LOC: MRI 08:18
PROVIDERS: ATTEND Family Medicine
DX: E11.621 Type 2 diabetes mellitus with foot ulcer (principal); L97.429 Non-pressure chronic ulcer of left heel and midfoot with unspecified severity

== ENCOUNTER 2018-06-04 11:04 | Outpatient (CLI) | payer BC ==
--- NOTE | 2018-06-04 12:29 | PRG ---
DATE OF SERVICE: 06/04/2018 HISTORY: Mr. Adrian Fonseca is a very pleasant 53-year-old gentleman who presents to the Wound Center for evaluation of an ulceration of the plantar surface of the left midfoot. The patient recently re turned from his trip to [facility]. The patient stated that while on the ship, he was running low o n his supply of p.o. antibiotics and was not able to take penicillin as prescribed by Dr. Ovalle. The patient stated that after returning to [place], the ulceration of the plantar surface of the left midfoot worsened in its appearance. Prior to being seen in the Wound Center on 05/28/2018, the patient had been performing dressing changes of Silverlon for his wound of the plantar surface of th e left midfoot. After being seen in the Wound Center, dressing changes of Medihoney, gauze, an ABD a nd Kerlix on a daily basis after cleansing and irrigation were initiated. MRI of the left midfoot sh owed no evidence of overt osteomyelitis. The patient reports significant drainage associated with hi s wound with the use of Medihoney. The patient has also been prescribed a course of p.o. Levaquin b ased upon the results of tissue cultures obtained on 05/28/2018. PHYSICAL EXAMINATION: VITAL SIGNS: Temperature 97.9, pulse 85, respirations 20, blood pressure 139/84. Accu-Chek 252. EXTREMITIES: An ulceration of the plantar surface of the left midfoot is present, which measures ben roximately 2.8 x 2.5 cm. Granulation tissue is present within the wound margins. No purulent draina ge is associated with the wound. No cellulitis of the left midfoot is appreciated. No maceration of the skin of the periwound is noted. No significant edema of the left foot is present on exam today. No bone is visible or palpable within the wound margins. ASSESSMENT AND PLAN: 1. Plantar ulceration of left midfoot. Hydrofera Blue followed by an ABD and Kerlix will be applied to the ulceration today. The patient has been reminded to continue penicillin and Levaquin as previ ously prescribed. I will see Mr. Fonseca again in 1 week. At this time, consideration will be given to treatment with a bioengineered skin substitute. The patient understands and is in agreement with the preceding treatment plan. 2. Diabetes mellitus. The patient's Accu-Chek in clinic today is 252. The patient has been reminde d that for optimal wound healing, his blood glucoses should remain below 150. 3. Charcot's arthropathy on the left. 4. Peripheral vascular disease.
== END 2018-06-04 11:05 | disposition home or self-care (01) ==
LOC: WCC 11:04
PROVIDERS: ATTEND Family Medicine
DX: E11.621 Type 2 diabetes mellitus with foot ulcer (principal); L97.429 Non-pressure chronic ulcer of left heel and midfoot with unspecified severity; I73.9 Peripheral vascular disease, unspecified; E11.610 Type 2 diabetes mellitus with diabetic neuropathic arthropathy
CPT/HCPCS: 36416; 97602

== ENCOUNTER 2018-06-10 11:14 | Outpatient (CLI) | payer BC ==
--- NOTE | 2018-06-10 14:08 | PRG ---
DATE OF SERVICE: 06/10/2018 HISTORY: Mr. Adrian Fonseca is a very pleasant 53-year-old gentleman who presents to the Wound Center for evaluation of an ulceration of the plantar surface of the left midfoot. The patient recently re turned from his trip to [facility]. The patient stated that while on the ship he was running low on his supply of p.o. antibiotics and was not able to take penicillin as prescribed by Dr. Ovalle. The patient stated that after returning to [place], the ulceration of the plantar surface of the left midfoot worsened in its appearance. Prior to being seen in the Wound Center on 05/28/2018 the robb luu had been performing dressing changes of Silverlon for his wound of the plantar surface of the left midfoot. After being seen in the Wound Center, dressing changes of Medihoney, gauze, an ABD, an d Kerlix on a daily basis after cleansing and irrigation were initiated. MRI of the left midfoot farhana wed no evidence of overt osteomyelitis. The patient reported significant drainage associated with hi s wound with the use of Medihoney. The patient was previously prescribed a course of p.o. Levaquin based upon the results of tissue cultures obtained on 05/28/2018. PHYSICAL EXAMINATION: VITAL SIGNS: Temperature 97.7, pulse 79, respirations 22, blood pressure 135/81, Accu-Chek 95. EXTREMITIES: An ulceration of the plantar surface of the left midfoot is present which measures appr oximately 2.9 x 2.8 cm. Granulation tissue is present within the wound margins. No purulent drainag e is associated with the wound. Copious serous drainage is, however, associated with the wound. No cellulitis of the left midfoot is appreciated. No maceration of the skin of the periwound is noted. Edema of the left foot and lower leg is present on exam today. No bone is visible or palpable withi n the wound margins. A sample of EpiFix was applied to the ulceration of the plantar surface of the left midfoot. This sample was given to the patient by the company. The ulceration was then dressed with gauze followed by an ABD and Kerlix. Offloading of the wound was achieved with the application of adhesive felt to the plantar surface of the left foot. ASSESSMENT AND PLAN: 1. Plantar ulceration of left midfoot. EpiFix was applied to the wound bed of the ulceration today. The patient has been reminded to continue penicillin and Levaquin as previously prescribed. Once t he patient has completed the course of Levaquin he is to begin clindamycin 300 mg #30 one p.o. t.i.d. x10 days. The patient understands and is in agreement with the preceding treatment plan. I will se e Mr. Fonseca again in 1 week. At this time, consideration will be given to another treatment with a bioengineered skin substitute. Arrangements will also be made for the initiation of negative pressur e therapy with dressing changes of the wound VAC 2 times per week here in the Wound Center. 2. Diabetes mellitus. The patient's Accu-Chek in clinic today is 95. The patient has been reminded that for optimal wound healing, his blood glucoses should remain below 150. 3. Charcot's arthropathy on the left. 4. Peripheral vascular disease.
== END 2018-06-10 11:15 | disposition home or self-care (01) ==
LOC: WCC 11:14
PROVIDERS: ATTEND Family Medicine
DX: E11.621 Type 2 diabetes mellitus with foot ulcer (principal); L97.429 Non-pressure chronic ulcer of left heel and midfoot with unspecified severity; I73.9 Peripheral vascular disease, unspecified; M14.672 Charcot's joint, left ankle and foot
CPT/HCPCS: 97602

== ENCOUNTER 2018-06-17 11:28 | Outpatient (CLI) | payer BC ==
--- NOTE | 2018-06-17 13:43 | PRG ---
DATE OF SERVICE: 06/17/2018 HISTORY: Mr. Adrian Fonseca is a very pleasant 53-year-old gentleman who presents to the Wound Center for evaluation of an ulceration of the plantar surface of the left midfoot. The patient recently re turned from a trip to [facility] and the patient stated that while on the ship, he was running low o n his supply of p.o. antibiotics and was not able to take penicillin as prescribed by Dr. Ovalle. The patient stated that after returning to [place], the ulceration of the plantar surface of the left midfoot worsened in its appearance. Prior to being seen in the Wound Center on 05/28/2018, the patient had been performing dressing changes of Silverlon for his wound of the plantar surface of th e left midfoot. After being seen in the Wound Center, dressing changes of Medihoney, gauze, ABD, and Kerlix on a daily basis after cleansing and irrigation were initiated. MRI of the left midfoot show ed no evidence of overt osteomyelitis. The patient reported significant drainage associated with his wound with the use of Medihoney. The patient has been prescribed Levaquin and clindamycin for his p lantar wound based upon the results of tissue cultures obtained on 05/28/2018. At the time of the cristian coyle's last visit, EpiFix was applied to the wound bed of the ulceration. PHYSICAL EXAMINATION: VITAL SIGNS: Temperature 97.6, pulse 87, respirations 22, blood pressure 171/95. Accu-Chek 225. EXTREMITIES: An ulceration of the plantar surface of the left midfoot is present, which measures ben roximately 2.4 x 2.6 cm. The dimensions of the wound at the time of the patient's last visit were ap proximately 2.9 x 2.8 cm. Granulation tissue is present within the wound margins. No purulent drain age is associated with the wound. No erythema of the skin surrounding the wound is present. No mace ration of the skin of the periwound is noted. No significant edema of the left foot is present on ex am today. No bone is visible or palpable within the wound margins. A sample of EpiFix was applied t o the ulceration of the plantar surface of the left midfoot. The sample was given to the patient by the company. The ulceration was then dressed with Adaptic, followed by the GranuFoam of the wound [facility]. Offloading of the wound was achieved with the application of adhesive felt to the plantar surface of the left foot. ASSESSMENT AND PLAN: 1. Plantar ulceration of left midfoot. EpiFix was applied to the wound bed of the ulceration today. The patient has been reminded to continue p.o. antibiotics as previously prescribed. I will see Mr Sahara Fonseca again in 1 week. The wound VAC will be placed to settings of 100 mmHg, continuous. At the time of the patient's followup visit, consideration will be given to another placement of EpiFix. 2. Diabetes mellitus. The patient's Accu-Chek in clinic today is 225. The patient has been reminde d that for optimal wound healing, his blood glucoses should remain below 150. 3. Charcot's arthropathy on the left. 4. Peripheral vascular disease.
== END 2018-06-17 11:29 | disposition home or self-care (01) ==
LOC: WCC 11:28
PROVIDERS: ATTEND Family Medicine
DX: E11.621 Type 2 diabetes mellitus with foot ulcer (principal); L97.529 Non-pressure chronic ulcer of other part of left foot with unspecified severity; E11.610 Type 2 diabetes mellitus with diabetic neuropathic arthropathy; E11.51 Type 2 diabetes mellitus with diabetic peripheral angiopathy without gangrene
CPT/HCPCS: 97602; A4218

== ENCOUNTER 2018-06-24 16:04 | Outpatient (CLI) | payer BC ==
[2018-06-24] MEDS ORDERED: Sodium Chloride 0.9% 15 ML NEB ONE (16:29)
--- NOTE | 2018-06-24 18:09 | PRG ---
DATE OF SERVICE: 06/24/2018 HISTORY: Mr. Adrian Fonseca is a very pleasant 53-year-old gentleman who presents to the Wound Center for evaluation of an ulceration of the plantar surface of the left midfoot. The patient recently re turned from a trip to [facility] and the patient stated that while on the ship, he was running low o n his supply of p.o. antibiotics and was not able to take penicillin as prescribed by Dr. Ovalle. The patient stated that after returning to [place], the ulceration of the plantar surface of the left midfoot worsened in its appearance. Prior to being seen in the Wound Center on 05/28/2018, the patient has been performing dressing changes of Silverlon for his wound of the plantar surface of th e left midfoot. After being seen in the Wound Center, dressing changes of Medihoney, gauze, ABD, and Kerlix on a daily basis after cleansing and irrigation were initiated. MRI of the left midfoot show ed no evidence of overt osteomyelitis. The patient reported significant drainage associated with his wound with the use of Medihoney. The patient has been prescribed Levaquin and clindamycin for his p lantar wound based upon the results of tissue cultures obtained on 05/28/2018. At the time of the cristian coyle's last visit, EpiFix was again applied to the wound bed of the ulceration. PHYSICAL EXAMINATION: VITAL SIGNS: Temperature 97.7, pulse 86, respirations 22, blood pressure 126/75. Accu-Chek 165. EXTREMITIES: An ulceration of the plantar surface of the left midfoot is present which measures appr oximately 2.4 x 2.2 cm. The dimensions of the wound at the time of the patient's last visit were ben roximately 2.4 x 2.6 cm. Granulation tissue is present within the wound margins. No purulent draina ge is associated with the wound. No erythema of the skin surrounding the wound is present. Macerati on of the skin of the periwound is noted. No significant edema of the left foot is present on exam t felisha. No bone is visible or palpable within the wound margin. EpiFix was applied to the ulceration of the plantar surface of the left midfoot. The ulceration was then dressed with Adaptic followed by the GranuFoam of the wound VAC. Offloading of the wound was achieved with the application of Adhesi ve [place] to the plantar surface of the left foot. ASSESSMENT AND PLAN: 1. Plantar ulceration of left midfoot. EpiFix was applied to the wound bed of the ulceration today. The patient has been instructed to return to the Wound Center in 1 week for a dressing change. The patient will also return to the Wound Center in 12 days for a second dressing change. I will see Mr Sahara Fonseca again in two weeks. The wound VAC will be placed to settings of 100 mmHg, continuous. At t he time of the patient's followup visit in 2 weeks, consideration will be given to another placement of EpiFix. 2. Diabetes mellitus. The patient's Accu-Chek in clinic today is 165. The patient has been reminde d that for optimal wound healing, his blood glucoses should remain below 150. 3. Charcot's arthropathy on the left. 4. Peripheral vascular disease.
== END 2018-06-24 16:05 | disposition home or self-care (01) ==
LOC: WCC 16:04
PROVIDERS: ATTEND Family Medicine
DX: E11.621 Type 2 diabetes mellitus with foot ulcer (principal); L97.429 Non-pressure chronic ulcer of left heel and midfoot with unspecified severity; I73.9 Peripheral vascular disease, unspecified; M14.672 Charcot's joint, left ankle and foot
CPT/HCPCS: A4218; Q4131

== ENCOUNTER 2018-07-08 11:15 | Outpatient (CLI) | payer BC ==
--- NOTE | 2018-07-08 13:26 | PRG ---
DATE OF SERVICE: 07/08/2018 HISTORY: Mr. Adrian Fonseca is a very pleasant 53-year-old gentleman who presented to the [facility] for evaluation of an ulceration of the plantar surface of the left midfoot. The patient is present ly receiving treatment with EpiFix in conjunction with negative pressure therapy for the ulceration o f the plantar surface of the left midfoot. The patient has no complaints today. He denies any fever or chills. PHYSICAL EXAMINATION: VITAL SIGNS: Temperature 97.9, pulse 85, respirations 23, blood pressure 164/82. Accu-Chek 174. EXTREMITIES: An ulceration of the plantar surface of the left midfoot is present, which measures ben roximately 1.9 x 1.6 cm. The dimensions of the wound at the time of the patient's visit on 8 were approximately 2.4 x 2.2 cm. Granulation tissue is present within the wound margins. No purul ent drainage is associated with the wound. No erythema of the skin surrounding the wound is present. No maceration of the skin of the periwound is noted. No significant edema of the left foot is pres ent on exam today. No bone is visible or palpable within the wound margins. EpiFix was applied to t he ulceration of the plantar surface of the left midfoot. The ulceration was then dressed with Adapt ic followed by the GranuFoam of the wound VAC. Offloading of the wound was achieved with the applica tion of adhesive felt to the plantar surface of the left foot. ASSESSMENT AND PLAN: 1. Plantar ulceration of left midfoot. EpiFix was applied to the wound bed of the ulceration today. The patient has been instructed to return to the Wound Center in 1 week. At this time, considerati on will be given to another placement of EpiFix. The wound VAC will be placed to settings of 100 mmH g continuous today. 2. Diabetes mellitus. The patient's Accu-Chek in clinic today is 174. The patient has been reminde d that for optimal wound healing, his blood glucoses should remain below 150. 3. Charcot's arthropathy on the left. 4. Peripheral vascular disease.
== END 2018-07-08 11:16 | disposition home or self-care (01) ==
LOC: WCC 11:15
PROVIDERS: ATTEND Family Medicine
DX: E11.621 Type 2 diabetes mellitus with foot ulcer (principal); L97.429 Non-pressure chronic ulcer of left heel and midfoot with unspecified severity; E11.610 Type 2 diabetes mellitus with diabetic neuropathic arthropathy; I73.9 Peripheral vascular disease, unspecified
CPT/HCPCS: Q4131

== ENCOUNTER 2018-07-23 12:39 | Outpatient (CLI) | payer BC ==
--- NOTE | 2018-07-23 13:49 | PRG ---
DATE OF SERVICE: 07/23/2018 HISTORY: Mr. Adrian Fonseca is a very pleasant 53-year-old gentleman who presents to the Wound Center for evaluation of an ulceration of the plantar surface of the left midfoot. The patient is presentl y receiving treatment with EpiFix in conjunction with negative pressure therapy for the ulceration of the plantar surface of the left midfoot. Mr. Fonseca has no complaints today. He denies any fever o r chills. PHYSICAL EXAMINATION: VITAL SIGNS: Temperature 97.7, pulse 86, respirations 20, blood pressure 167/92. Accu-Chek 191. EXTREMITIES: An ulceration of the plantar surface of the left midfoot is present, which measures ben roximately 0.9 x 0.9 cm. The dimensions of the wound at the time of the patient's visit on 8 were approximately 1.3 x 1.1 cm. Granulation tissue is present within the wound margins. No purul ent drainage is associated with the wound. No erythema of the skin surrounding the wound is present. No maceration of the skin of the periwound is noted. No significant edema of the left foot is pres ent on exam today. No bone is visible or palpable within the wound margins. EpiFix was applied to t he ulceration of the plantar surface of the left midfoot. The ulceration was then dressed with Adapt ic followed by the GranuFoam of the wound VAC. Offloading of the wound was achieved with the applica tion of 2 layers of adhesive felt to the plantar surface of the left foot. ASSESSMENT AND PLAN: 1. Plantar ulceration of left midfoot. EpiFix was applied to the wound bed of the ulceration today. I will see Mr. Fonseca again in 1 week. The wound VAC will be continued at the settings of 100 mmHg continuous today. 2. Diabetes mellitus. The patient's Accu-Chek in clinic today is 191. The patient has been reminde d that for optimal wound healing, his blood glucoses should remain below 150. 3. Charcot's arthropathy on the left. 4. Peripheral vascular disease.
== END 2018-07-23 12:40 | disposition home or self-care (01) ==
LOC: WCC 12:39
PROVIDERS: ATTEND Family Medicine
DX: E11.621 Type 2 diabetes mellitus with foot ulcer (principal); L97.429 Non-pressure chronic ulcer of left heel and midfoot with unspecified severity; I73.9 Peripheral vascular disease, unspecified; M14.672 Charcot's joint, left ankle and foot
CPT/HCPCS: 36416; A4218; Q4131

== ENCOUNTER 2018-07-29 11:22 | Outpatient (CLI) | payer BC ==
--- NOTE | 2018-07-29 12:19 | PRG ---
DATE OF SERVICE: 07/29/2018 HISTORY: Mr. Adrian Fonseca is a very pleasant 53-year-old gentleman who presents to the Wound Center for evaluation of an ulceration of the plantar surface of the left midfoot. The patient has complet ed a course of treatment with EpiFix in conjunction with negative pressure therapy for the ulceration of the plantar surface of the left midfoot. The patient has no complaints today. He denies any fev er or chills. PHYSICAL EXAMINATION: VITAL SIGNS: Temperature 97.9, pulse 83, respirations 20, blood pressure 162/90. Accu-Chek 355. EXTREMITIES: An ulceration of the plantar surface of the left midfoot is present, which measures ben roximately 0.7 x 0.5 cm. The dimensions of the wound at the time of the patient's visit on 8 were approximately 0.9 x 0.9 cm. Granulation tissue is present within the wound margins. No purul ent drainage is associated with the wound. No erythema of the skin surrounding the wound is present. No maceration of the skin of the periwound is noted. No significant edema of the left foot is pres ent on exam today. ASSESSMENT AND PLAN: 1. Plantar ulceration of left midfoot. The patient has completed a course of treatment with EpiFix in conjunction with negative pressure therapy for the ulceration. Dressing changes of Promogran, Ada ptic in conjunction with adhesive felt are to be performed on a daily basis after cleansing and irrig ation. The patient will be performing his own dressing changes. I will see Mr. Fonseca again in 1 we ek. Negative pressure therapy will be discontinued. 4x4s and Kerlix will be utilized as secondary d ressings in conjunction with the preceding dressings. The patient understands and is in agreement wi th the preceding treatment plan. 2. Diabetes mellitus. The patient's Accu-Chek in clinic today is 355. The patient has been reminde d that for optimal wound healing, his blood glucoses should remain below 150. 3. Charcot's arthropathy on the left. 4. Peripheral vascular disease.
[2018-07-29] MEDS ORDERED: Sodium Chloride 0.9% 15 ML NEB ONE (16:00)
== END 2018-07-29 11:23 | disposition home or self-care (01) ==
LOC: WCC 11:22
PROVIDERS: ATTEND Family Medicine
DX: E11.621 Type 2 diabetes mellitus with foot ulcer (principal); L97.429 Non-pressure chronic ulcer of left heel and midfoot with unspecified severity; I73.9 Peripheral vascular disease, unspecified; M14.672 Charcot's joint, left ankle and foot
CPT/HCPCS: 36416; 97602; A4218

== ENCOUNTER 2018-08-05 11:24 | Outpatient (CLI) | payer BC ==
[2018-08-05] MEDS ORDERED: Sodium Chloride 0.9% 15 ML NEB ONE (14:30)
--- NOTE | 2018-08-05 15:50 | PRG ---
DATE OF SERVICE: 08/05/2018 HISTORY: Mr. Adrian Fonseca is a very pleasant 53-year-old gentleman who presents to the [facility] for evaluation of an ulceration of the plantar surface of the left midfoot. The patient has complet ed a course of treatment with EpiFix in conjunction with negative pressure therapy for the ulceration of the plantar surface of the left midfoot. The patient has no complaints today. He denies any fev er or chills. PHYSICAL EXAMINATION: VITAL SIGNS: Temperature 97.6, pulse 81, respirations 19, blood pressure 125/73. Accu-Chek 210. EXTREMITIES: The ulceration of the plantar surface of the left midfoot has healed completely. No er ythema of the plantar surface of the left foot is present. No significant edema of the left foot is present on exam today. ASSESSMENT AND PLAN: 1. Plantar ulceration of left midfoot. As stated above, the ulceration has completely healed. The importance of offloading and preventing a recurrent ulceration has been discussed extensively with th e patient. He states he will continue to utilize adhesive felt for offloading of the newly healed wo und. I will see Mr. Fonseca again in four weeks. 2. Diabetes mellitus. The patient's Accu-Chek in clinic today is 210. The patient has been reminde d that for optimal wound healing, his blood glucoses should remain below 150. 3. Charcot's arthropathy on the left. 4. Peripheral vascular disease.
== END 2018-08-05 11:25 | disposition home or self-care (01) ==
LOC: WCC 11:24
PROVIDERS: ATTEND Family Medicine
DX: E11.621 Type 2 diabetes mellitus with foot ulcer (principal); L97.429 Non-pressure chronic ulcer of left heel and midfoot with unspecified severity; M14.672 Charcot's joint, left ankle and foot; I73.9 Peripheral vascular disease, unspecified
CPT/HCPCS: A4218

== ENCOUNTER 2018-09-09 10:51 | Outpatient (CLI) | payer BC ==
--- NOTE | 2018-09-09 12:40 | PRG ---
DATE OF SERVICE: 09/09/2018 HISTORY: Mr. Adrian Fonseca is a very pleasant 53-year-old gentleman who presents to the [facility]ound Center for evaluation of an ulceration of the plantar surface of the right great toe. The patient also has an ulceration of the plantar surface of the left midfoot. The patient completed a course of treatme nt with EpiFix in conjunction with negative pressure therapy for the ulceration of the plantar surfac e of the left midfoot. The patient has no other complaints today. He denies any fever or chills. PHYSICAL EXAMINATION: VITAL SIGNS: Temperature 98.0, pulse 69, respirations 19, blood pressure 164/82. Accu-Chek 192. EXTREMITIES: The ulceration of the plantar surface of the left midfoot measures approximately 0.5 x 0.8 cm. The ulceration of the plantar surface of the right great toe measures approximately 1.3 x 2. 0 cm. The ulceration of the plantar surface of the right great toe contains granulation tissue withi n the wound margins. Undermining desiccated tissue and callus associated with the wound of the plant ar surface of the right great toe were eliminated with an excisional full-thickness debridement with the use of scissors. No purulent drainage is associated with either wound. No erythema of the skin surrounding either wound is present. No maceration of the skin of the periwound of either wound is n oted. No significant edema of the right or left foot is appreciated on exam today. ASSESSMENT AND PLAN: 1. Plantar ulceration of left midfoot and plantar ulceration of the right great toe as described abo ve. Dressing changes of Xeroform gauze for both wounds will be initiated today. These dressing lopez ges are to be performed on a daily basis after cleansing and irrigation. The patient will be perform ing his own dressing changes. Gauze will be utilized as a secondary dressing. The patient is also t o utilize adhesive felt in conjunction with the preceding dressing changes. The patient has been see n by the investment representative today. I will see Mr. Fonseca again in 3 weeks. At this time, he will also be se en by the investment representative. 2. Diabetes mellitus. The patient's Accu-Chek in clinic today is 192. The patient has been reminde d that for optimal wound healing, his blood glucoses should remain below 150. 3. Charcot's arthropathy on the left. 4. Peripheral vascular disease.
== END 2018-09-09 10:52 | disposition home or self-care (01) ==
LOC: WCC 10:51
PROVIDERS: ATTEND Family Medicine
DX: E11.621 Type 2 diabetes mellitus with foot ulcer (principal); E11.610 Type 2 diabetes mellitus with diabetic neuropathic arthropathy; L97.429 Non-pressure chronic ulcer of left heel and midfoot with unspecified severity; L97.419 Non-pressure chronic ulcer of right heel and midfoot with unspecified severity; I73.9 Peripheral vascular disease, unspecified
CPT/HCPCS: 11042; A4218

== ENCOUNTER 2018-10-15 10:54 | Outpatient (CLI) | payer BC ==
--- NOTE | 2018-10-15 13:34 | PRG ---
DATE OF SERVICE: 10/15/2018 SUBJECTIVE: Mr. Adrian Fonseca is a very pleasant 53-year-old gentleman, who presents to the Wound Center for evaluation of an ulceration of the plantar surface of the right great toe. For the ulceration of the plantar surface of the right great toe, the patient has been performing dressing changes of Xeroform gauze. The patient states that he ran out of adhesive felt, which he had been utilizing to provide for more optimal offloading of the right great toe plantar ulceration. The patient has no other complaints today. Denies any fever or chills. OBJECTIVE: VITAL SIGNS: Temperature 97.9, pulse 72, respirations 18, and blood pressure 155/85. Accu-Chek 192. EXTREMITIES: The ulceration of the plantar surface of the right great toe measures approximately 1.7 x 1.2 cm. The dimensions of the wound at the time of the patient's last visit were approximately 2.0 x 1.3 cm. Granulation tissue is present within the wound margins. Undermining desiccated tissue and callus associated with the wound were eliminated with an excisional full-thickness debridement with the use of scissors. No purulent drainage is associated with the wound. No erythema of the skin surrounding the wound is present. No maceration of the skin of the periwound is noted. No significant edema of the right foot is present on exam today. Hyalomatrix was applied to the wound bed of the ulceration followed by DAVID Corley and Kerlix. ASSESSMENT AND PLAN: 1. Plantar ulceration of right great toe as described above. The patient has been instructed to change the secondary dressings as needed. I will see Mr. Fonseca again in one week. At this time, consideration will be given to another application of Hyalomatrix. The patient will also be seen by the canal equipment maintenance supervisor on 10/28/2018. 2. Diabetes mellitus. The patient's Accu-Chek in clinic today is 192. The patient has been reminded that for optimal wound healing his blood glucoses should remain below 150. 3. Charcot's arthropathy on the left. 4. Peripheral vascular disease. Job ID: [id number]
== END 2018-10-15 10:55 | disposition home or self-care (01) ==
LOC: WCC 10:54
PROVIDERS: ATTEND Family Medicine
DX: E11.621 Type 2 diabetes mellitus with foot ulcer (principal); L97.419 Non-pressure chronic ulcer of right heel and midfoot with unspecified severity; M14.672 Charcot's joint, left ankle and foot; I73.9 Peripheral vascular disease, unspecified
CPT/HCPCS: Q4117

== ENCOUNTER 2019-02-03 15:34 | Outpatient (CLI) | payer BC ==
--- NOTE | 2019-02-03 16:44 | PRG ---
DATE OF SERVICE: 02/03/2019 HISTORY: Mr. Adrian Fonseca is a very pleasant 53-year-old gentleman, who presents to the Wound Center for evaluation of an ulceration of the plantar surface of the right great toe. The patient also has a recurrent ulceration of the plantar surface of the left mid foot. The patient states that he was seen in the emergency department yesterday and placed on Zyvox for cellulitis of the left lower extremity. He states that at this time, he was referred to the Wound Center for evaluation for debridement of the ulceration of the plantar surface of the left mid foot. The patient states that he recently returned from [facility]. 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 The patient has no other complaints today. He denies any fever or chills. PHYSICAL EXAMINATION: VITAL SIGNS: Temperature 97.5, pulse 76, respirations 17, blood pressure 169/85. Accu-Chek 187. EXTREMITIES: The ulceration of the plantar surface of the right great toe measures approximately 1.5 x 2.0 cm. The dimensions of the wound at the time of the patient's visit on 10/15/2018 were approximately 1.7 x 1.2 cm. Granulation tissue is present within the wound margins. Undermining desiccated tissue and callus associated with the wound were eliminated with an excisional full-thickness debridement with the use of scissors. No purulent drainage is associated with the wound. No erythema of the skin surrounding the wound is present. No maceration of the skin of the periwound is noted. No significant edema of the right foot is present on exam today. An ulceration of the plantar surface of the left mid foot is present, which measures approximately 0.5 x 0.5 cm. Granulation tissue is present within the wound margins. Undermining macerated tissue and callus associated with the wound were eliminated with an excisional full-thickness debridement with the use of scissors. No purulent drainage is associated with the wound. No erythema of the skin surrounding the wound is present. No maceration of the skin of the periwound is noted. No significant edema of the left foot is present on exam today. ASSESSMENT AND PLAN: 1. Plantar ulceration of right great toe as described above. The patient also has a recurrent ulceration of the plantar surface of the left mid foot. Dressing changes of SilvaSorb gel sheet will be initiated today. These dressing changes are to be performed on a daily basis after cleansing and irrigation. The patient has been reminded to utilize adhesive felt in conjunction with his dressing changes. He is also to utilize the shoes fitted for him by the astrophysics teacher. I will see Mr. Fonseca again in 1 week. 2. Diabetes mellitus. The patient's Accu-Chek in clinic today is 187. The patient has been reminded that for optimal wound healing, his blood glucoses should remain below 150. 3. Charcot's arthropathy on the left. 4. Peripheral vascular disease. Job ID: [id number]
== END 2019-02-03 15:35 | disposition home or self-care (01) ==
LOC: WCC 15:34
PROVIDERS: ATTEND Family Medicine
DX: E11.621 Type 2 diabetes mellitus with foot ulcer (principal); L97.519 Non-pressure chronic ulcer of other part of right foot with unspecified severity; I73.9 Peripheral vascular disease, unspecified; M14.60 Charcot's joint, unspecified site
CPT/HCPCS: 11042; A4218

== ENCOUNTER 2019-02-10 11:32 | Outpatient (CLI) | payer BC ==
--- NOTE | 2019-02-10 17:30 | PRG ---
DATE OF SERVICE: 02/10/2019 HISTORY: Mr. Adrian Fonseca is a very pleasant 53-year-old gentleman, who presents to the Wound Center for evaluation of an ulceration of the plantar surface of the right great toe. The patient also has a recurrent ulceration of the plantar surface of the left mid foot. At the time of the patient's last visit, Mr. Fonseca was placed on dressing changes of SilvaSorb sheet for both wounds. The patient reports a significant improvement in the appearance of the ulcerations with the preceding dressing changes. The patient has no complaints today. He denies any fever or chills. PHYSICAL EXAMINATION: VITAL SIGNS: Temperature 97.5, pulse 71, respirations 17, blood pressure 142/78. Accu-Chek 140. EXTREMITIES: The ulceration of the plantar surface of the right great toe measures approximately 1.3 x 1.6 cm. The dimensions of the wound at the time of the patient's visit on 02/03/2019, were approximately 1.5 x 2.0 cm. An ulceration of the plantar surface of the left mid foot is present, which measures approximately 2.0 x 1.5 cm. Granulation tissue is present within the margins of each wound. No purulent drainage is associated with either wound. No erythema of the skin surrounding either wound is present. No maceration of the skin of the periwound of either wound is noted. No significant edema of the right or left foot is appreciated on exam today. ASSESSMENT AND PLAN: 1. Plantar ulcerations of right and left feet as described above. Dressing changes of SilvaSorb gel sheet will be continued on a daily basis after cleansing and irrigation. The patient was previously fitted with shoes by the item processor. I will see Mr. Fonseca again in 1 week. At this time, consideration will be given to treatment with a skin substitute. The patient understands and is in agreement with the preceding treatment plan. 2. Diabetes mellitus. The patient's Accu-Chek in clinic today is 140. The patient has been reminded that for optimal wound healing, his blood glucoses should remain below 150. 3. Charcot arthropathy on the left. 4. Peripheral vascular disease. Job ID: [id number]
[2019-02-10] MEDS ORDERED: Sodium Chloride 0.9% 15 ML NEB ONE (18:00)
== END 2019-02-10 11:33 | disposition home or self-care (01) ==
LOC: WCC 11:32
PROVIDERS: ATTEND Family Medicine
DX: E11.621 Type 2 diabetes mellitus with foot ulcer (principal); L97.519 Non-pressure chronic ulcer of other part of right foot with unspecified severity; I73.9 Peripheral vascular disease, unspecified; M14.672 Charcot's joint, left ankle and foot
CPT/HCPCS: A4218

== ENCOUNTER 2019-03-01 11:52 | Outpatient (CLI) | payer BC ==
[2019-03-01] MEDS ORDERED: Sodium Chloride 0.9% 15 ML NEB ONE (14:58)
--- NOTE | 2019-03-01 17:50 | PRG ---
DATE OF SERVICE: 03/01/2019 HISTORY: Mr. Adrian Fonseca is a very pleasant 53-year-old gentleman who presents to the Wound Center for evaluation of an ulceration of the plantar surface of the right great toe. The patient also has recurrent ulceration of the plantar surface of the left midfoot. Most recently, the patient has been performing dressing changes of SilvaSorb sheet for both wounds. Again, the patient reports a significant improvement in the appearance of his ulcerations with the preceding dressing changes. The patient has no complaints today. He denies any fever or chills. OBJECTIVE: VITAL SIGNS: Temperature 98.1, pulse 73, and respirations 18. Accu-Chek 179. EXTREMITIES: The ulceration of the plantar surface of the right great toe measures approximately 1.9 x 0.9 cm. The dimensions of the wound at the time of the patient's visit on 02/10/2019, were approximately 1.3 x 1.6 cm. An ulceration of the plantar surface of the left midfoot is present, which measures approximately 1.5 x 0.9 cm. The dimensions of the wound at the time of the patient's visit on 02/10/2019, were approximately 2.0 x 1.5 cm. Granulation tissue is present within the margins of each wound. No purulent drainage is associated with either wound. No erythema of the skin surrounding either wound is present. No maceration of the skin of the periwound of either wound is noted. No significant edema of the right or left foot is present on exam today. Callus desiccated tissue and undermining associated with each wound were eliminated with the use of scissors. After copious irrigation of both wounds with normal saline, EpiFix 2 x 2 cm was divided into 2 pieces and placed over each wound bed followed by Mepitel, secured with Steri-Strips and Mastisol. The right foot wound was then dressed with an ABD followed by Coban. The left foot wound was dressed with Aquacel and adhesive felt to provide for offloading followed by Coban. ASSESSMENT AND PLAN: 1. Plantar ulcerations of right and left feet. As described above, EpiFix was applied to the wound bed of each ulceration today. The patient was previously fitted with inserts by the wait staff. I will see Mr. Fonseca again in 1 week. At this time, consideration will be given to treatment with another skin substitute application. The patient understands and is in agreement with the preceding treatment plan. 2. Diabetes mellitus. The patient's Accu-Chek in clinic today is 179. The patient has been reminded that for optimal wound healing his blood glucoses should remain below 150. 3. Charcot arthropathy on the left. 4. Peripheral vascular disease. Job ID: [id number]
== END 2019-03-01 11:53 | disposition home or self-care (01) ==
LOC: WCC 11:52
PROVIDERS: ATTEND Family Medicine
DX: E11.621 Type 2 diabetes mellitus with foot ulcer (principal); L97.429 Non-pressure chronic ulcer of left heel and midfoot with unspecified severity; L97.419 Non-pressure chronic ulcer of right heel and midfoot with unspecified severity; E11.610 Type 2 diabetes mellitus with diabetic neuropathic arthropathy; I73.9 Peripheral vascular disease, unspecified

== ENCOUNTER 2019-03-10 11:05 | Outpatient (CLI) | payer BC ==
--- NOTE | 2019-03-10 14:21 | PRG ---
DATE OF SERVICE: 03/10/2019 HISTORY: Mr. Adrian Fonseca is a very pleasant 53-year-old gentleman, who presents to the Wound Center for evaluation of an ulceration of the plantar surface of the right great toe. The patient also has a recurrent ulceration of the plantar surface of the left mid foot. The patient is presently receiving treatment with EpiFix for both ulcerations. The patient reports improvement in the appearance of the ulceration over the plantar surface of the right great toe. The patient has no other complaints today. He denies any fever or chills. PHYSICAL EXAMINATION: VITAL SIGNS: Temperature 99.2, pulse 77, respirations 17, blood pressure 174/93. Accu-Chek 236. EXTREMITIES: The ulceration of the plantar surface of the right great toe measures approximately 1.4 x 1.1 cm. The dimensions of the wound at the time of the patient's last visit were approximately 1.9 x 0.9 cm. An ulceration of the plantar surface of the left mid foot is present, which measures approximately 0.6 x 0.6 cm. The dimensions of the wound at the time of the patient's last visit were approximately 1.5 x 0.9 cm. Granulation tissue is present within the margins of each wound. No purulent drainage is associated with either wound. No erythema of the skin surrounding either wound is present. No maceration of the skin of the periwound of either wound is noted. No significant edema of the right or left foot is present on exam today. Callus desiccated tissue and undermining associated with the ulceration over the plantar surface of the right great toe were eliminated with the use of scissors. After copious irrigation of both wounds with normal saline, EpiFix 2 x 2 cm was divided into 2 pieces and placed over each wound bed followed by Adaptic, secured with Steri-Strips and Mastisol. Both wounds were dressed with Aquacel and adhesive felt to provide for offloading followed by Coban. ASSESSMENT AND PLAN: 1. Plantar ulcerations of right and left feet as described above. EpiFix was applied to the wound bed of each ulceration today. I will see Mr. Fonseca again in approximately 10 days. At this time, consideration will be given to treatment with another skin substitute application. 2. Diabetes mellitus. The patient's Accu-Chek in clinic today is 236. The patient has been reminded that for optimal wound healing, his blood glucoses should remain below 150. 3. Charcot arthropathy on the left. 4. Peripheral vascular disease. Job ID: [id number]
== END 2019-03-10 11:06 | disposition home or self-care (01) ==
LOC: WCC 11:05
PROVIDERS: ATTEND Family Medicine
DX: E11.621 Type 2 diabetes mellitus with foot ulcer (principal); L97.429 Non-pressure chronic ulcer of left heel and midfoot with unspecified severity; L97.419 Non-pressure chronic ulcer of right heel and midfoot with unspecified severity; I73.9 Peripheral vascular disease, unspecified; M14.672 Charcot's joint, left ankle and foot
CPT/HCPCS: 15275; 36416; A4218; Q4186

== ENCOUNTER 2019-03-22 15:05 | Outpatient (CLI) | payer BC ==
--- NOTE | 2019-03-22 17:46 | PRG ---
DATE OF SERVICE: 03/22/2019 HISTORY: Mr. Adrian Fonseca is a very pleasant 53-year-old gentleman, who presents to the Wound Center for evaluation of an ulceration of the plantar surface of the right great toe. The patient also has a recurrent ulceration of the plantar surface of the left midfoot. The patient is currently receiving treatment with EpiFix for both ulcerations. Again, the patient reports improvement in the appearance of the ulceration over the plantar surface of the right great toe. Mr. Fonseca has no other complaints today. He denies any fever or chills. PHYSICAL EXAMINATION: VITAL SIGNS: Temperature 98.8, pulse 81, respirations 17, and blood pressure 123/81. Accu-Chek 137. EXTREMITIES: The ulceration of the plantar surface of the right great toe measures approximately 1.3 x 0.7 cm. The dimensions of the wound at the time of the patient's last visit were approximately 1.4 x 1.1 cm. An ulceration of the plantar surface of the left mid foot is present which measures approximately 0.8 x 1.0 cm. The dimensions of the wound at the time of the patient's last visit were approximately 0.6 x 0.6 cm. Granulation tissue is present within the margins of each wound. No purulent drainage is associated with either wound. No erythema of the skin surrounding either wound is present. No maceration of the skin of the periwound of either wound is noted. No significant edema of the right or left foot is present on exam today. Callus, desiccated tissue, and undermining associated with the ulceration over the plantar surface of the right great toe were eliminated with the use of scissors. After copious irrigation of both wounds with normal saline, EpiFix 2 x 2 cm was divided into 2 pieces and placed over each wound bed followed by Adaptic, secured with Steri-Strips and Mastisol. Both wounds were dressed with Aquacel and adhesive felt to provide for offloading followed by Vera. ASSESSMENT AND PLAN: 1. Plantar ulcerations of right and left feet as described above. EpiFix was applied to the wound bed of each ulceration today. 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 He states that when he returns to the [facility] area, he will contact the Wound Center, and at this time, consideration will be given to treatment with another skin substitute if either or both wounds are still present at this time. The patient will be performing dressing changes for his wounds in conjunction with the use of adhesive felt. The patient has been reminded as to the importance of offloading with the use of adhesive felt in conjunction with his dressing changes. 2. Diabetes mellitus. The patient's Accu-Chek in clinic today is 137. The patient has been reminded that for optimal wound healing his blood glucoses should remain below 150. 3. Charcot's arthropathy on the left. 4. Peripheral vascular disease. Job ID: [id number]
[2019-03-22] MEDS ORDERED: Sodium Chloride 0.9% 15 ML NEB ONE (18:00)
== END 2019-03-22 15:06 | disposition home or self-care (01) ==
LOC: WCC 15:05
PROVIDERS: ATTEND Family Medicine
DX: E11.621 Type 2 diabetes mellitus with foot ulcer (principal); L97.429 Non-pressure chronic ulcer of left heel and midfoot with unspecified severity; L97.419 Non-pressure chronic ulcer of right heel and midfoot with unspecified severity; I73.9 Peripheral vascular disease, unspecified; M14.60 Charcot's joint, unspecified site
CPT/HCPCS: A4218

== ENCOUNTER 2019-06-03 11:49 | Outpatient (CLI) | payer BC ==
--- NOTE | 2019-06-03 11:50 | PRG ---
DATE OF SERVICE: 06/03/2019 HISTORY: Mr. Adrian Fonseca is a very pleasant 54-year-old gentleman, who presents to the Wound Center for evaluation of an ulceration of the plantar surface of the right great toe. The ulceration of the plantar surface of the left midfoot has healed completely. At the time of the patient's last visit on 03/22/2019, Mr. Fonseca had been receiving treatment with EpiFix for both ulcerations. 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 The patient has no other complaints today. He denies any fever or chills. PHYSICAL EXAMINATION: VITAL SIGNS: Temperature 98.4, pulse 77, respirations 19, blood pressure 140/83. Accu-Chek 142. EXTREMITIES: The ulceration of the plantar surface of the right great toe measures approximately 1.6 x 1.8 cm. The dimensions of the wound at the time of the patient's last visit were approximately 1.3 x 0.7 cm. Granulation tissue is present within the margins of the wound. Necrotic and nonviable tissue present within the wound margins were debrided with an excisional full-thickness debridement. Callus desiccated tissue and undermining associated with the ulceration over the plantar surface of the right great toe were eliminated with the use of scissors. No purulent drainage is associated with the wound. No erythema of the skin surrounding the wound is present. No maceration of the skin of the periwound is noted. No significant edema of the right foot is present on today's exam. The ulceration of the plantar surface of the left midfoot has healed completely. ASSESSMENT AND PLAN: 1. Plantar ulceration of right great toe as described above. As stated above, the ulceration over the plantar surface of the left midfoot has healed completely. Arrangements will be made for the resumption of treatment with EpiFix. In the meantime, the patient is to perform dressing changes of Multidex powder, Adaptic, an ABD, Kerlix, and an Constantine bandage for the plantar ulceration of the right great toe. I will see Mr. Fonseca again in 2 weeks. 2. Diabetes mellitus. The patient's Accu-Chek in clinic today is 142. The patient has been reminded that for optimal wound healing, his blood glucoses should remain below 150. 3. Charcot arthropathy on the left. 4. Peripheral vascular disease. Job ID: [id number]
== END 2019-06-03 11:50 | disposition home or self-care (01) ==
LOC: WCC 11:49
PROVIDERS: ATTEND Family Medicine
DX: E11.621 Type 2 diabetes mellitus with foot ulcer (principal); L97.519 Non-pressure chronic ulcer of other part of right foot with unspecified severity; E11.610 Type 2 diabetes mellitus with diabetic neuropathic arthropathy; I73.9 Peripheral vascular disease, unspecified
CPT/HCPCS: 11042; 36416; A4218

== ENCOUNTER 2019-06-22 12:20 | Outpatient (CLI) | payer BC ==
--- NOTE | 2019-06-22 13:49 | MRI ---
EXAM: MRI right forefoot with and without IV contrast PROVIDED CLINICAL HISTORY: Diabetic ulcer COMPARISON: None FINDINGS: The distal aspects of the great toe distal to the base of the proximal phalanx are surgically absent. There is enhancing soft tissue noted within the subcutaneous adipose layer plantar to the remaining first digit. There is no evidence for a focal fluid collection to suggest abscess. No regio nal marrow signal alteration to suggest osteomyelitis. Evaluation is limited due to patient motion on the axial fluid sensitive sequence. There is greater t [place] physiologic fluid about the flexor pollicis longus tendon in its course adjacent to the midfoot hindfoot junction, demonstrating peripheral enhancement. No additional significant tenosynovial fluid is evident. There is patchy increased signal intensity on fluid sensitive sequences involving the intrinsic foot musculature somewhat diffusely. Alignment appears anatomic. Joint spaces appear preserved. No regional joint effusion is evident. IMPRESSION: 1. Enhancing soft tissue at the plantar aspect of the remaining first digit suggesting granulation ti ssue or phlegmon. No evidence for abscess or osteomyelitis. 2. Enhancing tenosynovial fluid about the flexor pollicis longus tendon in its course adjacent to the hindfoot, which could reflect infectious tenosynovitis.
== END 2019-06-22 12:21 | disposition home or self-care (01) ==
LOC: MRI 12:20
PROVIDERS: ATTEND Family Medicine
DX: S91.101A Unspecified open wound of right great toe without damage to nail, initial encounter (principal); E11.9 Type 2 diabetes mellitus without complications; M65.161 Other infective (teno)synovitis, right knee

== ENCOUNTER 2019-07-14 12:01 | Outpatient (CLI) | payer BC ==
--- NOTE | 2019-07-14 12:03 | PRG ---
DATE OF SERVICE: 07/14/2019 SUBJECTIVE: Mr. Adrian Fonseca is a very pleasant 54-year-old gentleman who presents to the [facility]ound Center for evaluation of an ulceration of the plantar surface of the right great toe. Since the patient presented to the Wound Center on 06/16/2019, MRI of the right forefoot with and without IV contrast was obtained, which showed no evidence for abscess or osteomyelitis. For the ulceration of the plantar surface of the right great toe, the patient has been performing dressing changes of Multidex powder. The patient has no complaints today. He denies any fever or chills. PHYSICAL EXAMINATION: VITAL SIGNS: Temperature 98.0, pulse 73, respirations 19, blood pressure 140/80, and Accu-Chek 165. EXTREMITIES: The ulceration of the plantar surface of the right great toe measures approximately 1.2 x 0.9 cm. The dimensions of the wound at the time of the patient's visit on 06/16/2019 were approximately 1.5 x 1.6 cm. Granulation tissue is present within the wound margins. Necrotic and nonviable tissue present within the wound margins was debrided with an excisional full-thickness debridement with the use of curette. Desiccated tissue and undermining at the periphery of the wound were eliminated with the use of scissors. No purulent drainage is associated with the wound. No erythema of the skin surrounding the wound is present. No maceration of the skin of the periwound is noted. No significant edema of the right foot is present on exam today. After copious irrigation of the wound bed with normal saline, EpiFix 2 x 2 cm was applied to the wound bed of the ulceration followed by Jory and Rhonda. Adhesive felt was utilized to provide for offloading of the ulceration. ASSESSMENT AND PLAN: 1. Plantar ulceration of right great toe as described above. EpiFix was applied to the wound bed of the ulceration today. The patient is to continue to utilize his diabetic shoes with inserts. I will see Mr. Fonseca again in 1 week. 2. Diabetes mellitus. The patient's Accu-Chek in clinic today is 165. The patient has been reminded that for optimal wound healing, his blood glucoses should remain below 150. 3. Charcot arthropathy on the left. 4. Peripheral vascular disease. Job ID: [id number]
== END 2019-07-14 12:02 | disposition home or self-care (01) ==
LOC: WCC 12:01
PROVIDERS: ATTEND Family Medicine
DX: E11.622 Type 2 diabetes mellitus with other skin ulcer (principal); L97.519 Non-pressure chronic ulcer of other part of right foot with unspecified severity; E11.51 Type 2 diabetes mellitus with diabetic peripheral angiopathy without gangrene; M14.60 Charcot's joint, unspecified site
CPT/HCPCS: 15275; 36416; A4218

== ENCOUNTER 2019-07-21 16:24 | Outpatient (CLI) | payer BC ==
--- NOTE | 2019-07-21 17:36 | PRG ---
DATE OF SERVICE: 07/21/2019 SUBJECTIVE: Mr. Adrian Fonseca is a very pleasant 54-year-old gentleman, who presents to the Wound Center for evaluation of an ulceration of the plantar surface of the right great toe. After the patient's presentation to the Wound Center on 06/16/2019, MRI of the right forefoot with and without contrast was obtained, which showed no evidence for abscess or osteomyelitis. The patient is presently receiving treatment with EpiFix for the ulceration of the plantar surface of the right great toe. The patient has no complaints today. He denies any fever or chills. OBJECTIVE: VITAL SIGNS: Temperature 97.8, pulse 71, respirations 21, blood pressure 137/69. Accu-Chek 130. EXTREMITIES: The ulceration of the plantar surface of the right great toe measures approximately 0.5 x 0.4 cm. The dimensions of the wound at the time of the patient's visit on 07/14/2019 were approximately 1.2 x 0.9 cm. Granulation tissue is present within the wound margins. No purulent drainage is associated with the wound. No erythema of the skin surrounding the wound is present. No maceration of the skin of the periwound is noted. No significant edema of the right foot is present on exam today. After copious irrigation of the wound bed with normal saline, EpiFix 2 x 2 cm was applied to the wound bed of the ulceration followed by Adaptic, 4x4s, and Rhonda. Adhesive [place] was utilized to provide for offloading of the ulceration. ASSESSMENT AND PLAN: 1. Plantar ulceration of right great toe as described above. EpiFix was applied to the wound bed of the ulceration today. The patient is to continue to utilize his diabetic shoes with inserts. I will see Mr. Fonseca again in 2 weeks. 2. Diabetes mellitus. The patient's Accu-Chek in clinic today is 130. The patient has been reminded that for optimal wound healing, his blood glucoses should remain below 150. 3. Charcot arthropathy on the left. 4. Peripheral vascular disease. Job ID: [id number]
== END 2019-07-21 16:25 | disposition home or self-care (01) ==
LOC: WCC 16:24
PROVIDERS: ATTEND Family Medicine
DX: E11.621 Type 2 diabetes mellitus with foot ulcer (principal); L97.519 Non-pressure chronic ulcer of other part of right foot with unspecified severity; E11.610 Type 2 diabetes mellitus with diabetic neuropathic arthropathy; E11.51 Type 2 diabetes mellitus with diabetic peripheral angiopathy without gangrene
CPT/HCPCS: 36416; A4218; Q4186

== ENCOUNTER 2019-08-11 15:07 | Outpatient (CLI) | payer BC ==
--- NOTE | 2019-08-11 16:20 | PRG ---
DATE OF SERVICE: 08/11/2019 HISTORY: Mr. Adrian Fonseca is a very pleasant 54-year-old gentleman, who presents to the Wound Center for evaluation of an ulceration of the plantar surface of the right great toe. After the patient's presentation to the Wound Center on 06/16/2019, MRI of the right forefoot with and without contrast was obtained, which showed no evidence for abscess or osteomyelitis. The patient is currently receiving treatment with EpiFix for the ulceration of the plantar surface of the right great toe. Mr. Fonseca has no complaints today. He denies any fever or chills. PHYSICAL EXAMINATION: VITAL SIGNS: Temperature 98.0, pulse 74, respirations 19, and blood pressure 161/80. Accu-Chek 176. EXTREMITIES: The ulceration of the plantar surface of the right great toe measures approximately 0.4 x 0.1 cm. The dimensions of the wound at the time of the patient's visit on 07/21/2019, were approximately 0.5 x 0.4 cm. Granulation tissue is present within the wound margins. No purulent drainage is associated with the wound. No erythema of the skin surrounding the wound is present. No maceration of the skin of the periwound is noted. No significant edema of the right foot is present on exam today. Undermining associated with the wound was eliminated with the use of scissors. Post debridement measurements were 1.1 x 1.4 cm. After copious irrigation of the wound bed with normal saline, EpiFix 2 x 2 cm was applied to the wound bed of the ulceration, EpiFix was secured to the periwound with the use of Mastisol and Steri-Strips. The ulceration was then dressed with Adaptic, adhesive [place], 4x4s, and Kerlix. ASSESSMENT AND PLAN: 1. Plantar ulceration of right great toe, as described above, EpiFix was applied to the wound bed of the ulceration today. The patient is to continue to utilize his diabetic shoes with inserts. I will see Mr. Fonseca again in 1 week. 2. Diabetes mellitus. The patient's Accu-Chek in clinic today is 176. The patient has been reminded that for optimal wound healing, his blood glucoses should remain below 150. 3. Charcot arthropathy on the left. 4. Peripheral vascular disease. Job ID: [id number]
== END 2019-08-11 15:08 | disposition home or self-care (01) ==
LOC: WCC 15:07
PROVIDERS: ATTEND Family Medicine
DX: E11.621 Type 2 diabetes mellitus with foot ulcer (principal); L97.519 Non-pressure chronic ulcer of other part of right foot with unspecified severity; E11.610 Type 2 diabetes mellitus with diabetic neuropathic arthropathy; E11.51 Type 2 diabetes mellitus with diabetic peripheral angiopathy without gangrene
CPT/HCPCS: 15275; 36416; A4218; Q4186

== ENCOUNTER 2019-08-18 11:37 | Outpatient (CLI) | payer BC ==
[2019-08-18] MEDS ORDERED: Sodium Chloride 0.9% 15 ML NEB ONE (16:04)
--- NOTE | 2019-08-18 16:25 | PRG ---
DATE OF SERVICE: 08/18/2019 HISTORY: Mr. Adrian Fonseca is a very pleasant 54-year-old gentleman, who presents to the Wound Center for evaluation of an ulceration of the plantar surface of the right great toe. After the patient's presentation to the Wound Center on 06/16/2019, MRI of the right forefoot with and without contrast was obtained which showed no evidence for abscess or osteomyelitis. The patient is presently receiving treatment with EpiFix for the ulceration of the plantar surface of the right great toe. The patient has no complaints today. He denies any fever or chills. PHYSICAL EXAMINATION: VITAL SIGNS: Temperature 97.9, pulse 65, respirations 20, blood pressure 144/83, Accu-Chek 135. EXTREMITIES: The ulceration of the plantar surface of the right great toe measures approximately 1.0 x 0.7 cm. The dimensions of the wound at the time of the patient's visit on 08/11/2019 were approximately 0.4 x 0.1 cm. Granulation tissue is present within the wound margins. No purulent drainage is associated with the wound. No erythema of the skin surrounding the wound is present. No maceration of the skin of the periwound is noted. No significant edema of the right foot is present on exam today. After copious irrigation of the wound bed with normal saline, EpiFix 2 x 2 cm was applied to the wound bed of the ulceration. The wound was then dressed with Adaptic and Kerlix. Adhesive [place] was utilized to provide for offloading of the plantar wound. ASSESSMENT AND PLAN: 1. Plantar ulceration of right great toe. As described above, EpiFix was applied to the wound bed of the ulceration today. The importance of offloading and achieving the healing of the ulceration has been discussed at length with the patient. I will see Mr. Fonseca again in 1 week. At this time, he will be seen by the mold maker helper. 2. Diabetes mellitus. The patient's Accu-Chek in clinic today is 135. The patient has been reminded that for optimal wound healing, his blood glucoses should remain below 150. 3. Charcot arthropathy on the left. 4. Peripheral vascular disease. Job ID: [id number]
== END 2019-08-18 11:38 | disposition home or self-care (01) ==
LOC: WCC 11:37
PROVIDERS: ATTEND Family Medicine
DX: E11.621 Type 2 diabetes mellitus with foot ulcer (principal); E11.610 Type 2 diabetes mellitus with diabetic neuropathic arthropathy; L97.519 Non-pressure chronic ulcer of other part of right foot with unspecified severity; I73.9 Peripheral vascular disease, unspecified
CPT/HCPCS: A4218; Q4186

== ENCOUNTER 2019-08-25 11:32 | Outpatient (CLI) | payer BC ==
--- NOTE | 2019-08-25 13:47 | PRG ---
DATE OF SERVICE: 08/25/2019 HISTORY: Mr. Adrian Fonseca is a very pleasant 54-year-old gentleman, who presents to the Wound Center for evaluation of an ulceration of the plantar surface of the right great toe. After the patient's presentation to the Wound Center on 06/16/2019, MRI of the right forefoot with and without contrast was obtained, which showed no evidence for abscess or osteomyelitis. The patient is currently receiving treatment with EpiFix for the ulceration of the plantar surface of the right great toe. The patient has no complaints today. He denies any fever or chills. PHYSICAL EXAMINATION: VITAL SIGNS: Temperature 98.1, pulse 73, respirations 18, blood pressure 156/71, and Accu-Chek 135. EXTREMITIES: The ulceration of the plantar surface of the right great toe measures approximately 1.1 x 0.9 cm. The dimensions of the wound at the time of the patient's last visit were approximately 1.0 x 0.7 cm. Granulation tissue was present within the wound margins. No purulent drainage is associated with the wound. No erythema of the skin surrounding the wound is present. No maceration of the skin of the periwound is noted. No significant edema of the right foot is present on exam today. ASSESSMENT AND PLAN: 1. Plantar ulceration of right great toe. The importance of offloading and achieving the healing of the ulceration again has been discussed at length with the patient. The patient has been seen by the fence gate assembler today. The patient will be receiving new inserts. I will see Mr. Fonseca again in 3 weeks. At this time, he will also be seen again by the fence gate assembler. In the meantime, The patient is to perform dressing changes of Multidex powder and Adaptic for the ulceration of the plantar surface of the right great toe. The patient has been instructed to perform the preceding dressing changes in conjunction with the use of adhesive felt for more optimal offloading until the patient's inserts are available. The patient understands and is in agreement with the preceding treatment plan. Once the patient has received his inserts, consideration will be given to the resumption of treatment with EpiFix. 2. Diabetes mellitus. The patient's Accu-Chek in clinic today is 135. The patient has been reminded that for optimal wound healing his blood glucoses should remain below 150. 3. Charcot arthropathy on the left. 4. Peripheral vascular disease. Job ID: [id number]
== END 2019-08-25 11:33 | disposition home or self-care (01) ==
LOC: WCC 11:32
PROVIDERS: ATTEND Family Medicine
DX: E11.621 Type 2 diabetes mellitus with foot ulcer (principal); L97.519 Non-pressure chronic ulcer of other part of right foot with unspecified severity; E11.610 Type 2 diabetes mellitus with diabetic neuropathic arthropathy; E11.51 Type 2 diabetes mellitus with diabetic peripheral angiopathy without gangrene
CPT/HCPCS: 97602

== ENCOUNTER 2019-09-23 11:35 | Outpatient (CLI) | payer BC ==
--- NOTE | 2019-09-23 10:41 | PRG ---
DATE OF SERVICE: 09/23/2019 HISTORY: Mr. Adrian Fonseca is a very pleasant 54-year-old gentleman, who presents to the Wound Center for evaluation of an ulceration of the plantar surface of the right great toe. After the patient's presentation to the Wound Center on 06/16/2019, MRI of the right forefoot with and without contrast was obtained, which showed no evidence for abscess or osteomyelitis. The patient is presently receiving treatment with EpiFix for the ulceration of the plantar surface of the right great toe. Mr. Fonseca has no complaints today. He denies any fever or chills. The patient was seen by the director electronics yesterday and has received new inserts. PHYSICAL EXAMINATION: VITAL SIGNS: Temperature 97.5, pulse 71, respirations 20, blood pressure 145/75. Accu-Chek 94. EXTREMITIES: The ulceration of the plantar surface of the right great toe measures approximately 0.6 x 1.0 cm. The dimensions of the wound at the time of the patient's visit on 08/25/2019, were approximately 1.1 x 0.9 cm. Granulation tissue was present within the wound margins. Callus, desiccated tissue, and undermining at the periphery of the wound were eliminated with the use of scissors. No purulent drainage is associated with the wound. No erythema of the skin surrounding the wound is present. No maceration of the skin of the periwound is noted. No significant edema of the right foot is present on exam today. After copious irrigation of the ulceration of the plantar surface of the right great toe, EpiFix 2 x 2 cm was applied to the wound bed of the ulceration followed by Adaptic secured with Steri-Strips and Mastisol. The ulceration was then dressed with 4x4's and Kerlix. ASSESSMENT AND PLAN: 1. Plantar ulceration of right great toe. The patient was given new inserts by the director electronics yesterday. The patient states that he has been using and will continue to utilize the new inserts. I will see Mr. Fonseca again in 1 week. At this time, consideration will be given to another placement of EpiFix. 2. Diabetes mellitus. The patient's Accu-Chek in clinic today is 94. The patient has been reminded that for optimal wound healing, his blood glucoses should remain below 150. 3. Charcot arthropathy on the left. 4. Peripheral vascular disease. Job ID: [id number]
[2019-09-23] MEDS ORDERED: Sodium Chloride 0.9% 15 ML NEB ONE (15:00)
== END 2019-09-23 11:36 | disposition home or self-care (01) ==
LOC: WCC 11:35
PROVIDERS: ATTEND Family Medicine
DX: E11.621 Type 2 diabetes mellitus with foot ulcer (principal); L97.519 Non-pressure chronic ulcer of other part of right foot with unspecified severity; I73.9 Peripheral vascular disease, unspecified; E11.610 Type 2 diabetes mellitus with diabetic neuropathic arthropathy
CPT/HCPCS: 15275; A4218; Q4186

== ENCOUNTER 2019-09-30 15:58 | Outpatient (CLI) | payer BC ==
--- NOTE | 2019-09-30 12:48 | PRG ---
DATE OF SERVICE: 09/30/2019 HISTORY: Mr. Adrian Fonseca is a very pleasant 54-year-old gentleman, who presents to the Wound Center for evaluation of an ulceration of the plantar surface of the right great toe. After the patient's presentation to the Wound Center on 06/16/2019, MRI of the right forefoot with and without contrast was obtained which showed no evidence for abscess or osteomyelitis. The patient is currently receiving treatment with EpiFix for the ulceration of the plantar surface of the right great toe. The patient has no complaints today. He denies any fever or chills. The patient recently received new inserts from the woodworking machine offbearer, which he has been utilizing as prescribed. PHYSICAL EXAMINATION: VITAL SIGNS: Temperature 98.2, pulse 74, respirations 18, and blood pressure 162/83. EXTREMITIES: The ulceration of the plantar surface of the right great toe measures approximately 0.9 x 0.5 cm. The dimensions of the wound at the time of the patient's visit on 09/23/2019 were approximately 0.6 x 1.0 cm. Granulation tissue is present within the wound margins. Desiccated tissue at the periphery of the wound was eliminated with the use of scissors. No purulent drainage is associated with the granulating wound. No erythema of the skin surrounding the wound is present. No maceration of the skin of the periwound is noted. No significant edema of the right foot is present on exam today. After copious irrigation of the ulceration of the plantar surface of the right great toe, EpiFix 2 x 2 cm was applied to the wound bed of the ulceration followed by Adaptic. The ulceration was then dressed with 4x4s and Kerlix. ASSESSMENT AND PLAN: 1. Plantar ulceration of right great toe. The patient was given new inserts by the woodworking machine offbearer recently. The patient states that he is using the new inserts as previously prescribed. I will see Mr. Fonseca again in 2 weeks. At this time, consideration will be given to another placement of EpiFix. 2. Diabetes mellitus. Accu-Cheks will be obtained at the time of the patient's clinic visits. The patient has been reminded that for optimal wound healing, his blood glucoses should remain below 150. 3. Charcot arthropathy on the left. 4. Peripheral vascular disease. Job ID: [id number]
[2019-09-30] MEDS ORDERED: Sodium Chloride 0.9% 15 ML NEB ONE (17:05)
== END 2019-09-30 15:59 | disposition home or self-care (01) ==
LOC: WCC 15:58
PROVIDERS: ATTEND Family Medicine
DX: E11.621 Type 2 diabetes mellitus with foot ulcer (principal); L97.519 Non-pressure chronic ulcer of other part of right foot with unspecified severity; E11.610 Type 2 diabetes mellitus with diabetic neuropathic arthropathy; E11.51 Type 2 diabetes mellitus with diabetic peripheral angiopathy without gangrene
CPT/HCPCS: A4218

== ENCOUNTER 2019-10-20 15:46 | Outpatient (CLI) | payer BC ==
--- NOTE | 2019-10-20 17:08 | PRG ---
DATE OF SERVICE: 10/20/2019 HISTORY: Mr. Adrian Fonseca is a very pleasant 54-year-old gentleman, who presents to the Wound Center for evaluation of an ulceration of the plantar surface of the right great toe. After the patient's presentation to the Wound Center on 06/16/2019, MRI of the right forefoot with and without contrast was obtained, which showed no evidence for abscess or osteomyelitis. The patient is presently receiving treatment with EpiFix for the ulceration of the plantar surface of the right great toe. Today, Mr. Fonseca complains of copious drainage associated with the ulceration of the plantar surface of the right great toe. He denies any fever or chills. PHYSICAL EXAMINATION: VITAL SIGNS: Temperature 98.4, pulse 71, respirations 18, and blood pressure 136/72. Accu-Chek 167. EXTREMITIES: The ulceration of the plantar surface of the right great toe measures approximately 1.1 x 1.0 cm. The dimensions of the wound at the time of the patient's visit on 09/30/2019 were approximately 0.9 x 0.5 cm. Granulation tissue is present within the wound margins. Samples of granulation tissue within the wound margins were excised with the use of scissors and sent for aerobic and anaerobic cultures. No purulent drainage is associated with the wound. No erythema of the skin surrounding the wound is present. No maceration of the skin of the periwound is noted. No significant edema of the right foot is present on exam today. ASSESSMENT AND PLAN: 1. Plantar ulceration of the right great toe. The patient has been given a prescription for Augmentin 875/125 #20 one p.o. b.i.d. x10 days. Antibiotic therapy will be modified based upon the results of the tissue cultures obtained today. I will see Mr. Fonseca again in 1 week. At this time, consideration will be given to another placement of EpiFix. In the meantime, the patient is to perform dressing changes of Hydrofera Blue on a daily basis after cleansing and irrigation. The patient has been seen by the corporate travel counselor today. 2. Diabetes mellitus. The patient's Accu-Chek in clinic today is 167. The patient has been reminded that for optimal wound healing his blood glucoses should remain below 150. 3. Charcot arthropathy on the left. 4. Peripheral vascular disease. Job ID: [id number]
== END 2019-10-20 15:47 | disposition home or self-care (01) ==
LOC: WCC 15:46
PROVIDERS: ATTEND Family Medicine
DX: E11.621 Type 2 diabetes mellitus with foot ulcer (principal); L97.519 Non-pressure chronic ulcer of other part of right foot with unspecified severity; E11.610 Type 2 diabetes mellitus with diabetic neuropathic arthropathy; E11.51 Type 2 diabetes mellitus with diabetic peripheral angiopathy without gangrene
CPT/HCPCS: 87070; 87077; 87186; 87205; A4218

== ENCOUNTER 2019-10-27 11:59 | Outpatient (CLI) | payer BC ==
[2019-10-27] MEDS ORDERED: Sodium Chloride 0.9% 15 ML NEB ONE (17:03)
--- NOTE | 2019-10-27 17:12 | PRG ---
DATE OF SERVICE: 10/27/2019 HISTORY: Mr. Adrian Fonseca is a very pleasant 54-year-old gentleman, who presents to the Wound Center for evaluation of an ulceration of the plantar surface of the right great toe. After the patient's presentation to the Wound Center on 06/16/2019, MRI of the right forefoot with and without contrast was obtained, which showed no evidence for abscess or osteomyelitis. The patient is currently receiving treatment with EpiFix for the ulceration of the plantar surface of the right great toe. At the time of the patient's last visit, Mr. Fonseca complained of copious drainage associated with the ulceration of the plantar surface of the right great toe. Today, he states that the drainage associated with his ulceration has decreased. He denies any fever or chills. PHYSICAL EXAMINATION: VITAL SIGNS: Temperature 97.5, pulse 80, respirations 19, and blood pressure 169/84. EXTREMITIES: The ulceration of the plantar surface of the right great toe measures approximately 0.9 x 1.3 cm. The dimensions of the wound at the time of the patient's visit on 10/20/2019 were approximately 1.1 x 1.0 cm. Granulation tissue is present within the wound margins. No purulent drainage is associated with the wound. No erythema of the skin surrounding the wound is present. No maceration of the skin of the periwound is noted. No significant edema of the right foot is present on exam today. Desiccated tissue at the periphery of the ulceration was excised with the use of scissors. After copious irrigation of the wound bed with normal saline, EpiFix 2 x 2 cm was applied to the wound bed of the ulceration of the plantar surface of the right great toe. The EpiFix was secured with Mastisol and Steri-Strips. The ulceration was then dressed with Adaptic and gauze. ASSESSMENT AND PLAN: 1. Plantar ulceration of the right great toe. EpiFix 2 x 2 cm was applied to the wound bed of the right great toe ulceration today. The ulceration is located on the plantar surface of the right great toe. 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 He states he will schedule a followup appointment in the Wound Center upon his return to the [place] area. The cultures obtained at the time of the patient's last visit revealed the growth of Proteus mirabilis, Staphylococcus aureus, and Streptococcus agalactiae group B. the patient was given a prescription for Augmentin 875/125, #20 one p.o. b.i.d. x10 days, which he has been taking as prescribed. The patient was previously seen by the layboy operator. The patient states that he has been utilizing his shoes with inserts as prescribed. 2. Diabetes mellitus. Accu-Cheks will be obtained at the time of the patient's clinic visits. The patient has been reminded that for optimal wound healing his blood glucoses should remain below 150. 3. Charcot arthropathy on the left. 4. Peripheral vascular disease. Job ID: [id number]
== END 2019-10-27 12:00 | disposition home or self-care (01) ==
LOC: WCC 11:59
PROVIDERS: ATTEND Family Medicine
DX: E11.621 Type 2 diabetes mellitus with foot ulcer (principal); L97.519 Non-pressure chronic ulcer of other part of right foot with unspecified severity; E11.610 Type 2 diabetes mellitus with diabetic neuropathic arthropathy; E11.51 Type 2 diabetes mellitus with diabetic peripheral angiopathy without gangrene
CPT/HCPCS: A4218; Q4186-KX-JC

== ENCOUNTER 2020-10-20 16:22 | Inpatient (IN) | payer BC ==
[~2020-10-20 16:22] MED LIST changes: +Heparin 1,000 UNITS/ML VIAL ONE; -Sodium Chloride 0.9% 15 ML NEB ONE
[2020-10-20] MEDS ORDERED: Ondansetron PF 4 MG/2 ML Vial IVP PRN (16:56)
[2020-10-20] MEDS ORDERED: Senokot S 8.6-50 MG TAB PO PRN (16:56)
[2020-10-20] MEDS ORDERED: Dextrose 50% Abboject 50 ML SYRINGE SLOW IVP PRN (16:57)
[2020-10-20] MEDS ORDERED: Dextrose 5% in Water 1,000 ML IV PRN (16:57)
[2020-10-20] MEDS ORDERED: HumaLOG 300 UNITS/3 ML VIAL SC PRN (16:57)
[2020-10-20 17:29] VITALS: BMI 37.6
[2020-10-20 19:18] LABS: Calc. Creatinine Clearance 178 mL/min (70-130)
--- NOTE | 2020-10-20 19:18 | HP ---
CHIEF COMPLAINT: Left lower extremity cellulitis. HISTORY OF PRESENT ILLNESS: The patient is a 55-year-old male with history of diabetes and obesity, who initially presented to [facility] on 10/13, was prescribed Zyvox for left lower extremity swelling and fever. The patient stated that about 2-1/2 weeks ago, he fell. It took him couple days to recover and after that, he started noticing having fevers. At this time, he went to a local ER to get tested for COVID. His rapid and his PCR were negative for COVID. The patient continued to have fevers at this time. He initially went to [facility], was` prescribed Zyvox and was sent home. He went to work that day, started not feeling well, worsening redness and swelling and came back to [facility]. At this time, he was admitted there for IV antibiotics. The patient initially had an x-ray of the left foot, which indicated postsurgical changes in the midfoot with band lucency surrounding one of the screws, most suggestive of hardware loosening. Otherwise, no evidence of osteomyelitis. The patient at that time had a white count of 21,000. At this time, he also underwent a CT on 10/18 of the lower extremity with contrast which indicated no acute bony fractures, joint dislocation, just indicated [id number] osteoarthrosis of the tibiotalar joint as seen in the joint-space narrowing. Midfoot osteoarthrosis is seen in the joint-space narrowing. Postoperative changes were also noted. It indicated deep ulceration of the plantar soft tissue of the mid foot without any evidence of underlying osteo, postoperative changes of the midfoot and hindfoot and also paralleling lucency noted about the distal portion of the fixation screw within the medial cuneiform bone as well as the first metatarsal and edema and stranding on the dorsal soft tissue of the foot as well as the ankle; this was at [facility]. At this time, WBCs were improving, however, noted to have candidemia in the blood and this time he was sent here for further evaluation. ALLERGIES: PATIENT IS ALLERGIC TO SULFA AND ZOLOFT. MEDICATIONS: 1. Amlodipine 5 mg daily. 2. Aspirin 81 mg daily. 3. Gabapentin 600 mg three times a day. 4. Jardiance 25 mg daily. 5. Lantus 70 units every morning. 6. Lisinopril 40 mg daily. 7. Metformin 1000 mg twice a day. 8. Toprol 3 times a day. 9. Vascepa one capsule daily. 10. Vitamin D 2000 units daily. SOCIAL HISTORY: No significant history of tobacco abuse or drug use or alcohol use. He is a full code. He lives with his . MEDICAL HISTORY: He has a history of diabetes, insulin-dependent. He has neuropathy, significant obesity, and hypertension. PAST SURGICAL HISTORY: He has a history of cholecystectomy and knee surgery. REVIEW OF SYSTEMS: All negative except for the ones mentioned above in the HPI. FAMILY HISTORY: Father has Parkinson's and dementia. Mother has CAD. Sister has thyroid. PHYSICAL EXAMINATION: VITAL SIGNS: Temperature of 98.5, heart rate 65, sats 97% on room air, blood pressure 117/86. GENERAL: He is awake, alert, and oriented x3. Does not appear in distress. CV: S1, S2 present. No murmurs, rubs, or gallops. LUNGS: Clear to auscultation. No rhonchi or wheezes noted. ABDOMEN: Soft, nontender. Bowel sounds are present x2. EXTREMITIES: He has pulses present bilaterally. His right first toe has been amputated. He does have an old-looking wound to his right metatarsal area. His left foot has an old ulcer to the plantar aspect of his left foot. He also has 2 small erythematous area to the lateral aspect of his left foot. Lower extremity, +1 to +2 lower extremity pitting edema. NEUROVASCULAR: No focal deficits noted. SKIN: No cuts, lesions, or bruises noted. LABORATORY DATA: WBCs on 10/18 was 18.3, hemoglobin of 13.9, hematocrit of 43.1 with platelets of 413. Chemistry; sodium of 137, potassium 4.7, BUN of 10, creatinine of 1.01. His hemoglobin A1c was 7.4. His blood cultures indicated candidemia and also left foot swabs indicated Enterococcus faecalis and Camilla. ASSESSMENT AND PLAN: The patient is a 55-year-old male, who presents to the hospital for worsening left foot cellulitis. 1. Left foot cellulitis. We will start the patient on Zosyn and vanco. For now, we will consult Infectious Disease. The patient did have a CT of his left foot which did not show any osteo. However, there is definitely a possibility of tunneling. May require surgical consultation. I will wait till the patient is seen by Infectious Disease. He has significant erythema noted to the lateral aspect of his left foot. 2. Candidemia. His one culture indicated Camilla albicans. He got oral dose of Diflucan at [facility]. We will start him on 400 mg a day IV. He will also need Ophthalmology examination. We will hold off on getting the echo, however, if needed, we will get an echocardiogram. 3. Leukocytosis, most likely secondary to his underlying infectious etiology. We will continue to monitor. He did have elevated ESR and CRP at the outside hospital. 4. Diabetes. We will continue his home medication and put him on before meals and at bedtime, Accu-Cheks, and diabetic diet. 5. Deep venous thrombosis prophylaxis. We will put the patient on subcu Lovenox. Job ID: [id number]
[2020-10-20 19:22] LABS: Vancomycin, Random 2.6 ug/mL (See Comment)
[2020-10-20] MEDS: Amlodipine 5 MG TAB PO SCH (21:53)
[2020-10-20] MEDS: Gabapentin 300 MG CAP PO SCH (21:53)
[2020-10-21] MEDS: Piperacillin/Tazobactam 3.375 GM in Sodium Chloride 0.9% 100 ML IVPB SCH ×4 (00:17→18:15)
[2020-10-21] MEDS: Acetaminophen 325 MG TAB PO PRN (00:17)
[2020-10-21 04:55] LABS: #Basophils 0.1 thou/uL (0.0-0.2); #Eosinphils 0.3 thou/uL (0.0-0.7); #Lymphocytes 2.7 thou/uL (1.20-3.40); #Monocytes 1.2 thou/uL (0.11-0.59); #Neutrophils 8.5 thou/uL (1.40-6.50); %Basophils 0.7 % (0.0-1.0); %Eosinophils 2.5 % (0.0-10.0); %Lymphocytes 20.9 % (21.0-51.0); %Neutrophils 66.8 % (42.0-75.0); Hemoglobin 13.8 g/dL (14.0-18.0); Mean Corpuscular HGB CONC 32.7 g/dL (32.0-36.0); Mean Corpuscular Hemoglobin 28.2 pg (27.0-31.0); Mean Corpuscular Volume 86.2 fL (78.0-98.0); Mean Platelet Volume 6.9 fL (7.4-10.4); Platelet Count 532 thou/uL (130-400); RBC Distribution Width 12.5 % (11.5-14.5); Red Blood Cell (RBC) Count 4.89 mill/uL (4.70-6.10); White Blood Cell (WBC) Count 12.8 thou/uL (4.8-10.8)
[2020-10-21 05:06] LABS: Anion Gap 16 mmol/L (10-20); BUN (Urea Nitrogen) 7 mg/dL (8.4-25.7); Calc. Creatinine Clearance 188 mL/min (70-130); Carbon Dioxide 24 mmol/L (22-29); Chloride 103 mmol/L (98-107); Glucose 114 mg/dL (70-105); Potassium 3.9 mmol/L (3.5-5.1); Sodium 139 mmol/L (136-145)
[2020-10-21] MEDS: metFORMIN 500 MG TAB PO SCH ×3 (08:00→18:15)
[2020-10-21] MEDS: INSULIN GLARGINE HUM REC ANLOG 300 UNIT/ML SC SCH (09:00)
[2020-10-21] MEDS: [UNRECOGNIZED DRUG - OTHER] PO SCH (09:06)
[2020-10-21] MEDS: Gabapentin 300 MG CAP PO SCH ×3 (09:08→21:57)
[2020-10-21] MEDS: Lisinopril 20 MG TAB PO SCH (09:08)
[2020-10-21] MEDS: Aspirin Chewable 81 MG TAB PO SCH (09:08)
[2020-10-21] MEDS: Cholecalciferol 1,000 UNITS (25 MCG) TAB PO SCH (09:09)
[2020-10-21] MEDS: Empagliflozin 25 MG TAB PO SCH (09:10)
[2020-10-21] MEDS: Amlodipine 5 MG TAB PO SCH ×2 (09:10→21:57)
[2020-10-21] MEDS: Enoxaparin Sodium 40 MG/0.4 ML SYRINGE SC SCH (09:10)
[2020-10-21] MEDS: Icosapent Ethyl 1 GM CAPSULE PO SCH (09:11)
[2020-10-21] MEDS: Fluconazole In NaCl,Iso-Osm 400 MG in Premix Bag 1 BAG IVPB SCH (13:01)
--- NOTE | 2020-10-21 22:17 | PDOC.HOSPP ---
- Subjective Encounter Date: 10/21/20 Encounter Time: 08:45 Subjective: Patient is up in bed no complaints. - Objective Vital Signs & Weight: Vital Signs (12 hours) Temp Pulse Pulse Resp BP BP Pulse Ox 10/21/20 21:57 73 10/21/20 20:00 98.2 F 73 18 177/74 H 97 10/21/20 16:00 98.1 F 69 18 174/79 H 96 10/21/20 12:00 98 F 66 18 195/91 H 95 10/21/20 11:30 67 155/88 H Pulse Ox 10/21/20 21:57 10/21/20 20:00 10/21/20 16:00 10/21/20 12:00 10/21/20 11:30 96 Weight Admit Weight 270 lb Weight 270 lb I&O: 10/20/20 10/21/20 10/22/20 06:59 06:59 06:59 Intake Total 1240 1800 Balance 1240 1800 Result Diagrams: 10/21/20 04:28 10/22/20 07:38 Additional Labs: Accuchecks 10/21/20 10/21/20 10/21/20 20:28 15:35 06:06 POC Glucose 74 115 H 95 Hospitalist ROS - Review of Systems Cardiovascular: denies: chest pain, palpitations, orthopnea, paroxysmal noc. dyspnea, edema, light headedness, other Gastrointestinal: denies: nausea, vomiting, abdominal pain, diarrhea, constipation, melena, hematochezia, other Genitourinary: denies: dysuria, frequency, incontinence, hematuria, retention, other - Medication Medications: Active Medications Generic Name Dose Route Start Last Admin Trade Name Freq PRN Reason Stop Dose Admin Acetaminophen 650 mg 10/20/20 16:56 10/21/20 00:17 Acetaminophen 325 Mg Tab PO 650 mg Q8H PRN Administration Headache/Fever/Mild Pain (1-3) Amlodipine Besylate 5 mg 10/20/20 21:00 10/21/20 21:57 Amlodipine 5 Mg Tab PO 5 mg BID OTILIO Administration Aspirin 81 mg 10/21/20 09:00 10/21/20 09:08 Aspirin Chewable 81 Mg Tab PO 81 mg DAILY OTILIO Administration Cholecalciferol 2,000 units 10/21/20 09:00 10/21/20 09:09 Cholecalciferol 1,000 Units (25 Mcg) Tab PO 2,000 units DAILY OTILIO Administration Enoxaparin Sodium 40 mg 10/21/20 09:00 10/21/20 09:10 Enoxaparin Sodium 40 Mg/0.4 Ml Syringe SC Not Given 0900 OTILIO Gabapentin 600 mg 10/20/20 21:00 10/21/20 21:57 Gabapentin 300 Mg Cap PO 600 mg TID OTILIO Administration Fluconazole/Sodium Chloride 200 mls @ 100 mls/hr 10/21/20 09:00 10/21/20 13:01 400 mg/ Device IVPB 200 mls DAILY OTILIO Administration Vancomycin HCl 2 gm/ Sodium 500 mls @ 250 mls/hr 10/20/20 20:00 10/21/20 21:57 Chloride IVPB 500 mls 0800,2000 OTILIO Administration Piperacillin Sod/Tazobactam 100 mls @ 200 mls/hr 10/20/20 23:59 10/21/20 18:15 Sod 3.375 gm/ Sodium Chloride IVPB 100 mls Q6HR OTILIO Administration Lisinopril 40 mg 10/21/20 09:00 10/21/20 09:08 Lisinopril 20 Mg Tab PO 40 mg DAILY OTILIO Administration Metformin HCl 1,000 mg 10/21/20 08:00 10/21/20 18:15 Metformin 500 Mg Tab PO 1,000 mg BID-WM OTILIO Administration Metoprolol Succinate 100 mg 10/20/20 21:00 10/21/20 21:57 Metoprolol Succinate Xl 100 Mg Tab PO 100 mg BID OTILIO Administration Miscellaneous Medication 25 mg 10/21/20 09:00 10/21/20 09:10 Empagliflozin 25 Mg Tab PO 25 mg DAILY OTILIO Administration Miscellaneous Medication 1 gm 10/21/20 09:00 10/21/20 09:11 Icosapent Ethyl 1 Gm Capsule PO 1 gm DAILY OTILIO Administration Pantoprazole Sodium 40 mg 10/21/20 09:00 10/21/20 09:10 Pantoprazole 40 Mg Tab PO 40 mg DAILY OTILIO Administration Ferraplus Tabs 0 each 10/21/20 09:00 10/21/20 09:06 PO Not Given DAILY [facility] Insulin Glargine,Hum 0 each 10/21/20 09:00 10/21/20 09:00 .Rec.Anlog [[place] 76 each Max Jade] 300 DAILY OTILIO Administration Unit/Ml - Exam Neck: negative: supple, symmetric, no JVD, no thyromegaly, no lymphadenopathy, no carotid bruit, JVD Heart: negative: RRR, no murmur, no gallops, no rubs, normal peripheral pulses, irregular, diminshed peripheral pulses, murmur present, II/IV, III/IV Respiratory: negative: CTAB, no wheezes, no rales, no ronchi, normal chest expansion, no tachypnea, normal percussion, rales, rhonchi, tachypneic, wheezes Gastrointestinal: negative: soft, non-tender, non-distended, normal bowel sounds, no palpable masses, no hepatomegaly, no splenomegaly, no bruit, no guarding, no rigidity, tender to palpation, distended, diminished bowl sounds, voluntary guarding Extremities: 2+ LE edema Extremities - other findings: Left foot wrapped Hosp A/P (1) Cellulitis Code(s): L03.90 - CELLULITIS, UNSPECIFIED Status: Acute (2) Diabetes Code(s): E11.9 - TYPE 2 DIABETES MELLITUS WITHOUT COMPLICATIONS Status: Acute (3) Candidemia Code(s): B37.7 - CANDIDAL SEPSIS Status: Acute (4) Obesity Code(s): E66.9 - OBESITY, UNSPECIFIED Status: Acute - Plan We will continue fluconazole for his candidemia. We will need to recheck cultures. Patient also will require ophthalmology consultation as outpatient. I am not sure if this patient requires an echocardiogram however will talk with infectious disease to see if we need to get an echo. We will continue current antibiotics. Patient may require MRI of the left foot. Wound care to see the patient. We will continue vancomycin, Zosyn and fluconazole.
[2020-10-22] MEDS: Piperacillin/Tazobactam 3.375 GM in Sodium Chloride 0.9% 100 ML IVPB SCH ×3 (01:01→12:00)
[2020-10-22] MEDS: Acetaminophen 325 MG TAB PO PRN ×2 (04:04→16:37)
[2020-10-22] MEDS ORDERED: Loperamide HCl 2 MG CAP PO SCH (04:30)
[2020-10-22 08:02] LABS: Vancomycin, Trough 20.1 ug/mL
[2020-10-22] MEDS: Aspirin Chewable 81 MG TAB PO SCH (08:22)
[2020-10-22] MEDS: metFORMIN 500 MG TAB PO SCH ×2 (08:22→16:37)
[2020-10-22] MEDS: Empagliflozin 25 MG TAB PO SCH (08:23)
[2020-10-22] MEDS: Gabapentin 300 MG CAP PO SCH ×3 (08:23→20:55)
[2020-10-22] MEDS: Amlodipine 5 MG TAB PO SCH ×2 (08:24→20:54)
[2020-10-22] MEDS: Cholecalciferol 1,000 UNITS (25 MCG) TAB PO SCH (08:24)
[2020-10-22] MEDS: Lisinopril 20 MG TAB PO SCH (08:25)
[2020-10-22] MEDS: Fluconazole In NaCl,Iso-Osm 400 MG in Premix Bag 1 BAG IVPB SCH (08:26)
[2020-10-22] MEDS: Enoxaparin Sodium 40 MG/0.4 ML SYRINGE SC SCH (08:26)
[2020-10-22] MEDS: [UNRECOGNIZED DRUG - OTHER] PO SCH (08:27)
[2020-10-22] MEDS: INSULIN GLARGINE HUM REC ANLOG 300 UNIT/ML SC SCH (08:28)
[2020-10-22 08:32] LABS: Anion Gap 17 mmol/L (10-20); BUN (Urea Nitrogen) 9 mg/dL (8.4-25.7); Calc. Creatinine Clearance 161 mL/min (70-130); Calcium 8.6 mg/dL (7.8-10.44); Carbon Dioxide 25 mmol/L (22-29); Chloride 101 mmol/L (98-107); Glucose 135 mg/dL (70-105); Potassium 3.9 mmol/L (3.5-5.1); Sodium 139 mmol/L (136-145)
[2020-10-22] MEDS: Icosapent Ethyl 1 GM CAPSULE PO SCH (08:32)
[2020-10-22 12:38] LABS: #Basophils 0.1 thou/uL (0.0-0.2); #Eosinphils 0.3 thou/uL (0.0-0.7); #Lymphocytes 2.5 thou/uL (1.20-3.40); #Monocytes 1.1 thou/uL (0.11-0.59); #Neutrophils 8.2 thou/uL (1.40-6.50); %Basophils 1.1 % (0.0-1.0); %Eosinophils 2.1 % (0.0-10.0); %Lymphocytes 20.6 % (21.0-51.0); %Neutrophils 67.2 % (42.0-75.0); Hemoglobin 14.2 g/dL (14.0-18.0); Mean Corpuscular HGB CONC 33.2 g/dL (32.0-36.0); Mean Corpuscular Hemoglobin 28.3 pg (27.0-31.0); Mean Corpuscular Volume 85.3 fL (78.0-98.0); Mean Platelet Volume 6.7 fL (7.4-10.4); Platelet Count 501 thou/uL (130-400); RBC Distribution Width 12.5 % (11.5-14.5); White Blood Cell (WBC) Count 12.2 thou/uL (4.8-10.8)
[2020-10-22] MEDS: AMPicillin 2 GM in Sodium Chloride 0.9% 100 ML IVPB SCH ×2 (16:20→22:43)
[2020-10-22] MEDS: Cefepime 2 GM in Sodium Chloride 0.9% 100 ML IVPB SCH (16:21)
--- NOTE | 2020-10-22 16:28 | CON ---
DATE OF CONSULTATION: REASON FOR CONSULTATION: Left foot infection and candidemia. HISTORY OF PRESENT ILLNESS: A 55-year-old whom I had seen in the past, the last time was in 04/2017 when he presented with a history of type 2 diabetes, neuropathy, retinopathy, and left foot Charcot arthropathy with prior fixation by Dr. John. The patient developed an ulcer at the base of the left foot, mid section, plantar aspect, managed with orthotic boot and then he developed inflammatory changes ascending from the left foot towards the skin of the leg all the way to the area of mid below the left knee. This was very painful and there is erythema extending towards the proximal leg and ulcer. The patient had an imaging study performed and the MRI did not show any abscess or bone involvement, but there was a lot of artifact as expected. The patient was treated with Zosyn, clindamycin, and vancomycin. Then, clindamycin was discontinued. He was switched to cefepime, vancomycin, and Flagyl. Subsequently, he saw Wound Care, Dr. lA, up until 10/2019 and this was for management of plantar ulceration of the right great toe few other ulcerations. The left foot had some inflammatory changes intermittently, I would say twice or three times. He had to go to the emergency room or to Dr. Flores and be prescribed antimicrobials and then he developed inflammatory changes about 6 to 7 days before admission and took him to [facility] ER. There, he was prescribed Zyvox. The cultures from the site were taken and they yielded Camilla. He was readmitted, stayed there a day and a half, and then was transferred to this hospital for further management. Apparently, they did a CT scan and there was an area of lucency surrounding one of the screws of his hardware, suggestive of hardware loosening. There was [id number] osteoarthrosis of the tibiotalar joint, deep ulceration of the plantar soft tissue in the midfoot. No evidence of bone destruction. The distal portion of the fixation screw within the medial cuneiform was felt to have some evidence of loosening as well. Currently, Mr. Fonseca is awake, appears in no distress. Some headaches. 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 No sore throat, odynophagia, or dysphagia. A little bit of dry mouth, some pain in the back of his neck from a fall that he took while at home recently, that was evaluated with x- rays and nothing, no fractures were noticeable. No cough or sputum production or chest pain. No abdominal pain or diarrhea. No genitourinary symptoms. Chronic knee pain, which is unchanged. PAST MEDICAL HISTORY: 1. Type 2 diabetes. 2. Neuropathy. 3. Retinopathy. 4. Charcot arthropathy, left side, fusion with prior episode of infection or inflammation, which was not shown to be associated with osteomyelitis, treated conservatively with resolution of inflammatory process. 5. Cellulitis, right leg in the past. 6. Chronic ulcers, which appears superficial in the right foot. SURGICAL HISTORY: 1. Arthroscopy. 2. Fusion of right mid foot by Dr. John. 3. Carpal tunnel syndrome. 4. Partial amputation of right first toe. FAMILY HISTORY: Type 2 diabetes and coronary artery disease. SOCIAL HISTORY: Works at [employer], also in [employer]. Never smoker. PHYSICAL EXAMINATION: VITAL SIGNS: Temperature has been within normal limits, BP 170/79, respiratory rate 16, and O2 saturation 97% on room air. SKIN: Left foot with erythema in the mid and hindfoot region and the bulging area in the lateral aspect of the hindfoot at the interface with the midfoot region with most likely an abscess, trying to fistulize through the skin. There is a chronic ulcer at the bottom aspect of the mid plantar portion of the left foot, which is packed at this time. He has numerous superficial ulcerations in the right foot. No lymphadenopathy. Peripheral IV access. He had a superficial ulcer in the amputation site of the right hallux MPJ. HEENT: Ocular movements conjugate. Sclerae white. Pupils are equal. Retinal exam shows the retinopathy, but there is no evidence of endophthalmitis or bleeding either right or left side. The pupils are reactive. Oral cavity normal. NECK: Supple. LUNGS: Symmetric, clear breath sounds. HEART: S1 and S2. Regular rate. ABDOMEN: Soft, not distended or tender. No ascites. No bladder distention. EXTREMITIES: Moves extremities equally. Pulses are excellent in the lower extremities. Excellent capillary refill. NEUROLOGIC: Cognitive function appears to be intact. LABORATORY DATA: White cell count started I think was at 20 something in [facility], now is down to 12,000; hemoglobin 14; and platelets 501. Creatinine 0.9. Vancomycin trough 20.1. Microbiology with Camilla in 1 set of blood cultures. Foot with Enterococcus faecalis and Camilla, that had been Pseudomonas aeruginosa, group B strep, and Staph aureus from May of this year. In October, there was Proteus mirabilis, Staph aureus and group B strep. He had MRSA from 05/2018. The more recent isolated staph aureus was methicillin-susceptible strains. IMAGING STUDIES: Renal ultrasound was done in August and an MRI of the extremity last time done in 2018, showed enhancing soft tissue plantar aspect in the remaining 1st digit and that is on the right foot. The last MRI of the left foot showed dissecting plantar ulceration, plantar aspect of the lateral mid foot with small locule of gas within the ulcer base with no changes of osteomyelitis noted. ASSESSMENT: 1. Type 2 diabetes. 2. Neuropathy. 3. Chronic ulcers. 4. Chronic complications of left foot, resulting from neuropathy. 5. Charcot arthropathy with prior fixation. 6. In 2016 inflammatory process without radiological evidence of osteomyelitis, treated conservatively with resolution inflammatory process. 7. Recurrences of inflammatory process, treated in the outpatient setting with oral antimicrobial therapy with resolution. 8. Now another recrudescence at this time with more prominent findings, suggestive of complicated midfoot inflammatory process with likely involvement of hardware and lucency around one of the screws for fixation. DISCUSSION: The patient has obvious complex infection at the hindfoot region associated with previous fixation. Will need surgical intervention. Dr. John will need to evaluate the patient. We will wait for him to see the patient before ordering imaging studies. He may want to take him to the OR without any further imaging other than what has been done at [facility]. In terms of antimicrobial therapy, the patient currently is receiving Zosyn, vancomycin, and fluconazole. We will switch him to ampicillin, cefepime, and Diflucan. Job ID: [id number] [facility]
[2020-10-22] MEDS: Loperamide HCl 2 MG CAP PO PRN (16:37)
[2020-10-22] MEDS ORDERED: Sodium Chloride 0.9% 10 ML ONE (22:36)
[2020-10-23] MEDS ORDERED: Sodium Chloride 0.9% 10 ML ONE (03:45)
[2020-10-23] MEDS: AMPicillin 2 GM in Sodium Chloride 0.9% 100 ML IVPB SCH ×4 (03:58→23:54)
[2020-10-23] MEDS: Acetaminophen 325 MG TAB PO PRN ×2 (04:04→20:55)
[2020-10-23] MEDS: Cefepime 2 GM in Sodium Chloride 0.9% 100 ML IVPB SCH ×2 (04:41→17:27)
[2020-10-23 06:25] LABS: #Eosinphils 0.2 thou/uL (0.0-0.7); #Lymphocytes 2.3 thou/uL (1.20-3.40); #Monocytes 0.9 thou/uL (0.11-0.59); #Neutrophils 6.8 thou/uL (1.40-6.50); %Basophils 0.3 % (0.0-1.0); %Eosinophils 2.1 % (0.0-10.0); %Lymphocytes 22.5 % (21.0-51.0); %Monocytes 9.1 % (0.0-10.0); Hemoglobin 13.7 g/dL (14.0-18.0); Mean Corpuscular HGB CONC 32.9 g/dL (32.0-36.0); Mean Corpuscular Hemoglobin 28.1 pg (27.0-31.0); Mean Corpuscular Volume 85.4 fL (78.0-98.0); Mean Platelet Volume 6.9 fL (7.4-10.4); Platelet Count 501 thou/uL (130-400); RBC Distribution Width 12.6 % (11.5-14.5); Red Blood Cell (RBC) Count 4.86 mill/uL (4.70-6.10); White Blood Cell (WBC) Count 10.2 thou/uL (4.8-10.8)
[2020-10-23 06:46] LABS: Anion Gap 16 mmol/L (10-20); BUN (Urea Nitrogen) 8 mg/dL (8.4-25.7); Calc. Creatinine Clearance 204 mL/min (70-130); Calcium 8.7 mg/dL (7.8-10.44); Carbon Dioxide 25 mmol/L (22-29); Chloride 103 mmol/L (98-107); Glucose 82 mg/dL (70-105); Potassium 4.2 mmol/L (3.5-5.1); Sodium 140 mmol/L (136-145)
--- NOTE | 2020-10-23 08:42 | PDOC.HOSPP ---
- Subjective Encounter Date: 10/22/20 Encounter Time: 11:45 Subjective: Patient up in bed no complaints. - Objective Vital Signs & Weight: Vital Signs (12 hours) Pulse BP 10/22/20 20:54 73 151/67 H Weight Admit Weight 270 lb Weight 270 lb I&O: 10/22/20 10/23/20 10/24/20 06:59 06:59 06:59 Intake Total 2920 1940 Balance 2920 1940 Result Diagrams: 10/23/20 05:55 10/23/20 05:56 Additional Labs: Accuchecks 10/23/20 10/22/20 10/22/20 06:08 20:26 18:51 POC Glucose 84 106 H 140 H 10/22/20 11:21 POC Glucose 169 H Hospitalist ROS - Review of Systems Cardiovascular: denies: chest pain, palpitations, orthopnea, paroxysmal noc. dyspnea, edema, light headedness, other Gastrointestinal: denies: nausea, vomiting, abdominal pain, diarrhea, constipation, melena, hematochezia, other Genitourinary: denies: dysuria, frequency, incontinence, hematuria, retention, other - Medication Medications: Active Medications Generic Name Dose Route Start Last Admin Trade Name Freq PRN Reason Stop Dose Admin Acetaminophen 650 mg 10/20/20 16:56 10/23/20 04:04 Acetaminophen 325 Mg Tab PO 650 mg Q8H PRN Administration Headache/Fever/Mild Pain (1-3) Amlodipine Besylate 5 mg 10/20/20 21:00 10/22/20 20:54 Amlodipine 5 Mg Tab PO 5 mg BID OTILIO Administration Aspirin 81 mg 10/21/20 09:00 10/22/20 08:22 Aspirin Chewable 81 Mg Tab PO 81 mg DAILY OTILIO Administration Cholecalciferol 2,000 units 10/21/20 09:00 10/22/20 08:24 Cholecalciferol 1,000 Units (25 Mcg) Tab PO 2,000 units DAILY OTILIO Administration Enoxaparin Sodium 40 mg 10/21/20 09:00 10/22/20 08:26 Enoxaparin Sodium 40 Mg/0.4 Ml Syringe SC Not Given 0900 OTILIO Gabapentin 600 mg 10/20/20 21:00 10/22/20 20:55 Gabapentin 300 Mg Cap PO 600 mg TID OTILIO Administration Fluconazole/Sodium Chloride 200 mls @ 100 mls/hr 10/21/20 09:00 10/22/20 08:26 400 mg/ Device IVPB 200 mls DAILY OTILIO Administration Ampicillin Sodium 2 gm/ Sodium 100 mls @ 200 mls/hr 10/22/20 16:00 10/23/20 03:58 Chloride IVPB 100 mls 0400,1000,1600,2200 OTILIO Administration Cefepime HCl 2 gm/ Sodium 100 mls @ 200 mls/hr 10/22/20 16:00 10/23/20 04:41 Chloride IVPB 100 mls 0400,1600 OTILIO Administration Lisinopril 40 mg 10/21/20 09:00 10/22/20 08:25 Lisinopril 20 Mg Tab PO 40 mg DAILY OTILIO Administration Loperamide HCl 2 mg 10/22/20 16:18 10/22/20 16:37 Loperamide Hcl 2 Mg Cap PO 2 mg TIDPRN PRN Administration Diarrhea/Loose Stools Metformin HCl 1,000 mg 10/21/20 08:00 10/22/20 16:37 Metformin 500 Mg Tab PO 1,000 mg BID-WM OTILIO Administration Metoprolol Succinate 100 mg 10/20/20 21:00 10/22/20 20:54 Metoprolol Succinate Xl 100 Mg Tab PO 100 mg BID OTILIO Administration Miscellaneous Medication 25 mg 10/21/20 09:00 10/22/20 08:23 Empagliflozin 25 Mg Tab PO 25 mg DAILY OTILIO Administration Miscellaneous Medication 1 gm 10/21/20 09:00 10/22/20 08:32 Icosapent Ethyl 1 Gm Capsule PO 1 gm DAILY OTILIO Administration Pantoprazole Sodium 40 mg 10/21/20 09:00 10/22/20 08:25 Pantoprazole 40 Mg Tab PO 40 mg DAILY OTILIO Administration Ferraplus Tabs 0 each 10/21/20 09:00 10/22/20 08:27 PO 1 each DAILY OTILIO Administration Insulin Glargine,Hum 0 each 10/21/20 09:00 10/22/20 08:28 .Rec.Anlog [[place] 1 each Max Solostar] 300 DAILY OTILIO Administration Unit/Ml - Exam Neck: negative: supple, symmetric, no JVD, no thyromegaly, no lymphadenopathy, no carotid bruit, JVD Heart: negative: RRR, no murmur, no gallops, no rubs, normal peripheral pulses, irregular, diminshed peripheral pulses, murmur present, II/IV, III/IV Respiratory: negative: CTAB, no wheezes, no rales, no ronchi, normal chest expansion, no tachypnea, normal percussion, rales, rhonchi, tachypneic, wheezes Gastrointestinal: negative: soft, non-tender, non-distended, normal bowel sounds, no palpable masses, no hepatomegaly, no splenomegaly, no bruit, no guarding, no rigidity, tender to palpation, distended, diminished bowl sounds, voluntary guarding Hosp A/P (1) Cellulitis Code(s): L03.90 - CELLULITIS, UNSPECIFIED Status: Acute (2) Diabetes Code(s): E11.9 - TYPE 2 DIABETES MELLITUS WITHOUT COMPLICATIONS Status: Acute (3) Candidemia Code(s): B37.7 - CANDIDAL SEPSIS Status: Acute (4) Obesity Code(s): E66.9 - OBESITY, UNSPECIFIED Status: Acute - Plan We will continue fluconazole for his candidemia. We will need to recheck cultures. Patient also will require ophthalmology consultation as outpatient. I am not sure if this patient requires an echocardiogram however will talk with infectious disease to see if we need to get an echo. We will continue current antibiotics. Patient may require MRI of the left foot. Wound care to see the patient. We will continue vancomycin, Zosyn and fluconazole. 10/22 his antibiotics changed per infectious disease. Will check blood cultures. Patient most likely will require PICC line.
[2020-10-23] MEDS ORDERED: Magnevist 469MG/ML 20 ML VIAL ONE (09:37)
[2020-10-23] MEDS: INSULIN GLARGINE HUM REC ANLOG 300 UNIT/ML SC SCH (09:46)
[2020-10-23] MEDS: Lisinopril 20 MG TAB PO SCH (09:47)
[2020-10-23] MEDS: [UNRECOGNIZED DRUG - OTHER] PO SCH (09:47)
[2020-10-23] MEDS: Icosapent Ethyl 1 GM CAPSULE PO SCH (09:48)
[2020-10-23] MEDS: Cholecalciferol 1,000 UNITS (25 MCG) TAB PO SCH (09:48)
[2020-10-23] MEDS: Aspirin Chewable 81 MG TAB PO SCH (09:48)
[2020-10-23] MEDS: Amlodipine 5 MG TAB PO SCH ×2 (09:48→20:53)
[2020-10-23] MEDS: metFORMIN 500 MG TAB PO SCH ×2 (09:48→17:26)
[2020-10-23] MEDS: Enoxaparin Sodium 40 MG/0.4 ML SYRINGE SC SCH (09:49)
[2020-10-23] MEDS: Empagliflozin 25 MG TAB PO SCH (09:49)
[2020-10-23] MEDS: Fluconazole In NaCl,Iso-Osm 400 MG in Premix Bag 1 BAG IVPB SCH (09:50)
[2020-10-23] MEDS: Saccharomyces boulardii 250 MG CAP PO SCH (09:50)
[2020-10-23] MEDS: Gabapentin 300 MG CAP PO SCH ×3 (09:51→20:53)
[2020-10-23] MEDS: Loperamide HCl 2 MG CAP PO PRN ×2 (09:56→20:55)
--- NOTE | 2020-10-23 15:42 | MRI ---
EXAM: MRI Lower Ext Jt Lt W Con DATE: 10/23/2020 3:00 PM INDICATION: Nonhealing ulcer on the bottom of the left foot COMPARISON: MRI of the left foot dated June 01, 2018 FINDING: Contrast: 20 cc of MultiHance The plantar base wound involving the lateral left midfoot has increased in size now measuring 1.9 x 2 .8 cm. There is dissecting soft tissue abscess that extends from the left posterior lateral aspect of the ulceration into the plantar base soft tissues measuring approximately 4.2 x 4.2 cm. This large r soft tissue abscess dissects within the subcutaneous tissues of the lateral left mid foot. Susceptibility artifact from the patient's hindfoot and midfoot arthrodesis slightly limits image det ail. There is prominent cellulitis of the dorsal aspect of the left foot as well as the plantar aspect of the left foot. There is no overt changes of osteomyelitis. IMPRESSION: 1. Enlarging plantar base wound along the lateral margin of the left midfoot with a dissecting absces s extending along the left lateral aspect of the plantar base with into along the left lateral margin of the foot measuring 4.2 x 4.2 cm. 2. Left foot cellulitis.
--- NOTE | 2020-10-23 15:44 | PRG ---
DATE OF SERVICE: 10/23/2020 SUBJECTIVE: Mr. Fonseca is in the MRI now getting his foot imaged. According to the nurse, there has been no major intervening problems and his vital signs with a T-max of 100.4 yesterday at 8 p.m., BP 180/85, heart rate 68, O2 saturation 97. The white cell count is down to 10.2, hemoglobin 13.7, platelets 501, 66% neutrophils. Creatinine 0.71. Microbiology with previously noted isolates of Camilla albicans in one set of blood cultures. E faecalis and Camilla albicans from the foot previously with P aeruginosa and MSSA and group B strep. ASSESSMENT AND DISCUSSION: Type 2 diabetes, neuropathy, chronic ulcers and complications of left foot resulting from it, Charcot arthropathy with prior fixation and now recrudescence of inflammatory process with evidence of loosening of one of the screws and likely osteomyelitis. I have discussed the case with Dr. John today and he has suggested obtain an MRI, which we will go ahead and proceed with it and then he is probably going to need surgical intervention. I do not know if he have it done here or at [facility] or elsewhere. If that is the case, then I will do is discharge him on IV antimicrobial therapy and IV plus oral that is combination of Diflucan, daptomycin, and cefepime and then followup Dr. John in the outpatient setting. Job ID: [id number] [facility]
--- NOTE | 2020-10-23 16:25 | PDOC.HOSPP ---
- Subjective Encounter Date: 10/23/20 Encounter Time: 11:13 Subjective: pt up in bed no complains - Objective Vital Signs & Weight: Vital Signs (12 hours) Temp Pulse Resp BP BP Pulse Ox 10/23/20 09:48 68 10/23/20 09:47 151/67 H 10/23/20 08:00 97.5 F L 68 18 184/85 H 97 Weight Admit Weight 270 lb Weight 270 lb I&O: 10/22/20 10/23/20 10/24/20 06:59 06:59 06:59 Intake Total 2920 1940 800 Balance 2920 1940 800 Result Diagrams: 10/23/20 05:55 10/23/20 05:56 Additional Labs: Accuchecks 10/23/20 10/23/20 10/22/20 11:06 06:08 20:26 POC Glucose 180 H 84 106 H 10/22/20 18:51 POC Glucose 140 H Hospitalist ROS - Review of Systems Cardiovascular: denies: chest pain, palpitations, orthopnea, paroxysmal noc. dyspnea, edema, light headedness, other Gastrointestinal: denies: nausea, vomiting, abdominal pain, diarrhea, constipation, melena, hematochezia, other Genitourinary: denies: dysuria, frequency, incontinence, hematuria, retention, other - Medication Medications: Active Medications Generic Name Dose Route Start Last Admin Trade Name Freq PRN Reason Stop Dose Admin Acetaminophen 650 mg 10/20/20 16:56 10/23/20 04:04 Acetaminophen 325 Mg Tab PO 650 mg Q8H PRN Administration Headache/Fever/Mild Pain (1-3) Amlodipine Besylate 5 mg 10/20/20 21:00 10/23/20 09:48 Amlodipine 5 Mg Tab PO 5 mg BID OTILIO Administration Aspirin 81 mg 10/21/20 09:00 10/23/20 09:48 Aspirin Chewable 81 Mg Tab PO 81 mg DAILY OTILIO Administration Cholecalciferol 2,000 units 10/21/20 09:00 10/23/20 09:48 Cholecalciferol 1,000 Units (25 Mcg) Tab PO 2,000 units DAILY OTILIO Administration Enoxaparin Sodium 40 mg 10/21/20 09:00 10/23/20 09:49 Enoxaparin Sodium 40 Mg/0.4 Ml Syringe SC Not Given 0900 OTILIO Gabapentin 600 mg 10/20/20 21:00 10/23/20 09:51 Gabapentin 300 Mg Cap PO 600 mg TID OTILIO Administration Fluconazole/Sodium Chloride 200 mls @ 100 mls/hr 10/21/20 09:00 10/23/20 09:50 400 mg/ Device IVPB 200 mls DAILY OTILIO Administration Ampicillin Sodium 2 gm/ Sodium 100 mls @ 200 mls/hr 10/22/20 16:00 10/23/20 09:50 Chloride IVPB 100 mls 0400,1000,1600,2200 OTILIO Administration Cefepime HCl 2 gm/ Sodium 100 mls @ 200 mls/hr 10/22/20 16:00 10/23/20 04:41 Chloride IVPB 100 mls 0400,1600 OTILIO Administration Lisinopril 40 mg 10/21/20 09:00 10/23/20 09:47 Lisinopril 20 Mg Tab PO 40 mg DAILY OTILIO Administration Loperamide HCl 2 mg 10/22/20 16:18 10/23/20 09:56 Loperamide Hcl 2 Mg Cap PO 2 mg TIDPRN PRN Administration Diarrhea/Loose Stools Metformin HCl 1,000 mg 10/21/20 08:00 10/23/20 09:48 Metformin 500 Mg Tab PO 1,000 mg BID-WM OTILIO Administration Metoprolol Succinate 100 mg 10/20/20 21:00 10/23/20 09:49 Metoprolol Succinate Xl 100 Mg Tab PO 100 mg BID OTILIO Administration Miscellaneous Medication 25 mg 10/21/20 09:00 10/23/20 09:49 Empagliflozin 25 Mg Tab PO 25 mg DAILY OTILIO Administration Miscellaneous Medication 1 gm 10/21/20 09:00 10/23/20 09:48 Icosapent Ethyl 1 Gm Capsule PO 1 gm DAILY OTILIO Administration Pantoprazole Sodium 40 mg 10/21/20 09:00 10/23/20 09:48 Pantoprazole 40 Mg Tab PO 40 mg DAILY OTILIO Administration Ferraplus Tabs 0 each 10/21/20 09:00 10/23/20 09:47 PO 1 each DAILY OTILIO Administration Insulin Glargine,Hum 0 each 10/21/20 09:00 10/23/20 09:46 .Rec.Anlog [Toujeo SC 1 each Max Solostar] 300 DAILY OTILIO Administration Unit/Ml Saccharomyces Boulardii 250 mg 10/23/20 09:00 10/23/20 09:50 Saccharomyces Boulardii 250 Mg Cap PO 250 mg DAILY OTILIO Administration - Exam Neck: negative: supple, symmetric, no JVD, no thyromegaly, no lymphadenopathy, no carotid bruit, JVD Heart: negative: RRR, no murmur, no gallops, no rubs, normal peripheral pulses, irregular, diminshed peripheral pulses, murmur present, II/IV, III/IV Respiratory: negative: CTAB, no wheezes, no rales, no ronchi, normal chest expansion, no tachypnea, normal percussion, rales, rhonchi, tachypneic, wheezes Gastrointestinal: negative: soft, non-tender, non-distended, normal bowel sounds, no palpable masses, no hepatomegaly, no splenomegaly, no bruit, no guarding, no rigidity, tender to palpation, distended, diminished bowl sounds, voluntary guarding Hosp A/P (1) Cellulitis Code(s): L03.90 - CELLULITIS, UNSPECIFIED Status: Acute (2) Diabetes Code(s): E11.9 - TYPE 2 DIABETES MELLITUS WITHOUT COMPLICATIONS Status: Acute (3) Candidemia Code(s): B37.7 - CANDIDAL SEPSIS Status: Acute (4) Obesity Code(s): E66.9 - OBESITY, UNSPECIFIED Status: Acute - Plan We will continue fluconazole for his candidemia. We will need to recheck cultures. Patient also will require ophthalmology consultation as outpatient. I am not sure if this patient requires an echocardiogram however will talk with infectious disease to see if we need to get an echo. We will continue current antibiotics. Patient may require MRI of the left foot. Wound care to see the patient. We will continue vancomycin, Zosyn and fluconazole. 10/22 his antibiotics changed per infectious disease. Will check blood cultures. Patient most likely will require PICC line. 10/23 we will check blood cultures. MRI ordered. Orthopedic consulted. We will continue current antibiotics. Will put in a PICC line for patient.
[2020-10-24] MEDS: AMPicillin 2 GM in Sodium Chloride 0.9% 100 ML IVPB SCH ×4 (03:30→21:03)
[2020-10-24] MEDS: Cefepime 2 GM in Sodium Chloride 0.9% 100 ML IVPB SCH ×2 (03:30→16:45)
[2020-10-24] MEDS: Acetaminophen 325 MG TAB PO PRN (03:38)
[2020-10-24] MEDS: metFORMIN 500 MG TAB PO SCH ×2 (08:34→16:54)
[2020-10-24] MEDS: Aspirin Chewable 81 MG TAB PO SCH (08:36)
[2020-10-24] MEDS: Amlodipine 5 MG TAB PO SCH ×2 (08:36→20:56)
[2020-10-24] MEDS: Cholecalciferol 1,000 UNITS (25 MCG) TAB PO SCH (08:37)
[2020-10-24] MEDS: Empagliflozin 25 MG TAB PO SCH (08:39)
[2020-10-24] MEDS: Enoxaparin Sodium 40 MG/0.4 ML SYRINGE SC SCH (08:40)
[2020-10-24] MEDS: Gabapentin 300 MG CAP PO SCH ×3 (08:42→20:56)
[2020-10-24] MEDS: Fluconazole In NaCl,Iso-Osm 400 MG in Premix Bag 1 BAG IVPB SCH (08:44)
[2020-10-24] MEDS: Icosapent Ethyl 1 GM CAPSULE PO SCH (08:44)
[2020-10-24] MEDS: Lisinopril 20 MG TAB PO SCH (08:47)
[2020-10-24] MEDS: Saccharomyces boulardii 250 MG CAP PO SCH (08:49)
[2020-10-24] MEDS: INSULIN GLARGINE HUM REC ANLOG 300 UNIT/ML SC SCH (08:50)
[2020-10-24] MEDS: [UNRECOGNIZED DRUG - OTHER] PO SCH (08:51)
[2020-10-24] MEDS: Loperamide HCl 2 MG CAP PO PRN ×2 (08:59→20:56)
--- NOTE | 2020-10-24 13:45 | PRG ---
DATE OF SERVICE: 10/24/2020 SUBJECTIVE: Mr. Fonseca is in better spirits today, is still having loose stools, actually diarrhea, 8 to 9 times per day. No headaches. No change in visual symptoms. No shortness of breath, cough, or chest pain. No abdominal cramps. No genitourinary symptoms, much in terms of foot pain. OBJECTIVE: VITAL SIGNS: T-max 99.1, BP 160/79, heart rate 70, respiratory rate 18, O2 saturation 96%. GENERAL: Appears in no distress, better mood than when I last saw him, sitting, working with his computer. LUNGS: Symmetric air entry without crackles or wheezing. HEART: S1, S2. Regular rate without murmurs. ABDOMEN: Soft. Not distended or tender. EXTREMITIES: Left foot with dressing, which was not removed. LABORATORY DATA: White cell count is down to 10,000, hemoglobin 13, platelets 501. Creatinine 0.71. No new culture information. The MRI showed abscess, but not osteomyelitis, although artifact hindered proper interpretation certain areas limiting image detail. Prominent cellulitis was noted. The abscess extended along the left lateral aspect of plantar base with left lateral margin of foot measuring 4 x 4 cm. I have discussed with Dr. John and he is going to review his MRI and then go from there. Most likely, the patient is going to need surgical debridement. We will go ahead and write for PICC line now. ASSESSMENT AND DISCUSSION: Type 2 diabetes, neuropathy and complications with Charcot arthropathy and now recrudescence of previous inflammatory process, loosening of one of the screws and abscess pointing toward the lateral midfoot region. Camilla albicans retrieved from the foot most likely and from the blood, and additional pathogens likely and we have isolation of Enterococcus faecalis, Pseudomonas aeruginosa is possible group B strep and methicillin-sensitive Staph aureus is possible as well. He is currently on ampicillin and cefepime and Diflucan to be continued. PICC line placement. Job ID: [id number]
--- NOTE | 2020-10-24 16:00 | SPC ---
Left upper extremity PICC placement sonographic guided HISTORY: Osteomyelitis. FINDINGS: After explaining the procedure and answering all questions, the left upper extremity was pr epped and draped in usual sterile fashion. Sterile technique, buffered local anesthesia, sonographic guidance, and a 22-gauge needle were used t o carefully access the left basilic vein. Standard technique was used to place the tip of a 5 [place] single lumen PICC so that the tip lies at the level of the superior vena cava. The catheter was flushed and secured externally. Patient tolerated the procedure well and was returned in unchanged condition. Fluoroscopy time 0 seconds. IMPRESSION : Left upper extremity PICC is ready for use.
--- NOTE | 2020-10-24 16:44 | PDOC.HOSPP ---
- Subjective Encounter Date: 10/24/20 Encounter Time: 11:50 Subjective: pt up in bed no complains. - Objective Vital Signs & Weight: Vital Signs (12 hours) Temp Pulse Resp BP Pulse Ox 10/24/20 08:36 70 10/24/20 08:00 97.8 F 70 18 161/79 H 96 Weight Admit Weight 270 lb Weight 270 lb I&O: 10/23/20 10/24/20 10/25/20 06:59 06:59 06:59 Intake Total 1939 2830 Balance 1939 2830 Result Diagrams: 10/23/20 05:55 10/23/20 05:56 Additional Labs: Accuchecks 10/24/20 10/24/20 10/24/20 16:29 11:33 06:04 POC Glucose 112 H 137 H 123 H 10/23/20 10/23/20 20:57 16:57 POC Glucose 123 H 153 H Hospitalist ROS - Review of Systems Cardiovascular: denies: chest pain, palpitations, orthopnea, paroxysmal noc. dyspnea, edema, light headedness, other Gastrointestinal: denies: nausea, vomiting, abdominal pain, diarrhea, constipation, melena, hematochezia, other Genitourinary: denies: dysuria, frequency, incontinence, hematuria, retention, other - Medication Medications: Active Medications Generic Name Dose Route Start Last Admin Trade Name Freq PRN Reason Stop Dose Admin Acetaminophen 650 mg 10/20/20 16:56 10/24/20 03:38 Acetaminophen 325 Mg Tab PO 650 mg Q8H PRN Administration Headache/Fever/Mild Pain (1-3) Amlodipine Besylate 5 mg 10/20/20 21:00 10/24/20 08:36 Amlodipine 5 Mg Tab PO 5 mg BID OTILIO Administration Aspirin 81 mg 10/21/20 09:00 10/24/20 08:36 Aspirin Chewable 81 Mg Tab PO 81 mg DAILY OTILIO Administration Cholecalciferol 2,000 units 10/21/20 09:00 10/24/20 08:37 Cholecalciferol 1,000 Units (25 Mcg) Tab PO 2,000 units DAILY OTILIO Administration Enoxaparin Sodium 40 mg 10/21/20 09:00 10/24/20 08:40 Enoxaparin Sodium 40 Mg/0.4 Ml Syringe SC 40 mg 09 OTILIO Administration Gabapentin 600 mg 10/20/20 21:00 10/24/20 14:55 Gabapentin 300 Mg Cap PO 600 mg TID OITLIO Administration Fluconazole/Sodium Chloride 200 mls @ 100 mls/hr 10/21/20 09:00 10/24/20 08:44 400 mg/ Device IVPB 200 mls DAILY OTILIO Administration Ampicillin Sodium 2 gm/ Sodium 100 mls @ 200 mls/hr 10/22/20 16:00 10/24/20 15:38 Chloride IVPB 100 mls 0400,1000,1600,2200 OTILIO Administration Cefepime HCl 2 gm/ Sodium 100 mls @ 200 mls/hr 10/22/20 16:00 10/24/20 03:30 Chloride IVPB 100 mls 0400,1600 OTILIO Administration Lisinopril 40 mg 10/21/20 09:00 10/24/20 08:47 Lisinopril 20 Mg Tab PO 40 mg DAILY OTILIO Administration Loperamide HCl 2 mg 10/22/20 16:18 10/24/20 08:59 Loperamide Hcl 2 Mg Cap PO 2 mg TIDPRN PRN Administration Diarrhea/Loose Stools Metformin HCl 1,000 mg 10/21/20 08:00 10/24/20 08:34 Metformin 500 Mg Tab PO 1,000 mg BID-WM OTILIO Administration Metoprolol Succinate 100 mg 10/20/20 21:00 10/24/20 08:48 Metoprolol Succinate Xl 100 Mg Tab PO 100 mg BID OTILIO Administration Miscellaneous Medication 25 mg 10/21/20 09:00 10/24/20 08:39 Empagliflozin 25 Mg Tab PO 25 mg DAILY OTILIO Administration Miscellaneous Medication 1 gm 10/21/20 09:00 10/24/20 08:44 Icosapent Ethyl 1 Gm Capsule PO 1 gm DAILY OTILIO Administration Pantoprazole Sodium 40 mg 10/21/20 09:00 10/24/20 08:48 Pantoprazole 40 Mg Tab PO 40 mg DAILY OTILIO Administration Ferraplus Tabs 0 each 10/21/20 09:00 10/24/20 08:51 PO 1 each DAILY OTILIO Administration Insulin Glargine,Hum 0 each 10/21/20 09:00 10/24/20 08:50 .Rec.Anlog [Toujeo SC 1 each Max Solostar] 300 DAILY OTILIO Administration Unit/Ml Saccharomyces Boulardii 250 mg 10/23/20 09:00 10/24/20 08:49 Saccharomyces Rojasi 250 Mg Cap PO 250 mg DAILY OTILIO Administration - Exam Neck: negative: supple, symmetric, no JVD, no thyromegaly, no lymphadenopathy, no carotid bruit, JVD Heart: negative: RRR, no murmur, no gallops, no rubs, normal peripheral pulses, irregular, diminshed peripheral pulses, murmur present, II/IV, III/IV Respiratory: negative: CTAB, no wheezes, no rales, no ronchi, normal chest expansion, no tachypnea, normal percussion, rales, rhonchi, tachypneic, wheezes Gastrointestinal: negative: soft, non-tender, non-distended, normal bowel sounds, no palpable masses, no hepatomegaly, no splenomegaly, no bruit, no guarding, no rigidity, tender to palpation, distended, diminished bowl sounds, voluntary guarding Hosp A/P (1) Cellulitis Code(s): L03.90 - CELLULITIS, UNSPECIFIED Status: Acute (2) Diabetes Code(s): E11.9 - TYPE 2 DIABETES MELLITUS WITHOUT COMPLICATIONS Status: Acute (3) Candidemia Code(s): B37.7 - CANDIDAL SEPSIS Status: Acute (4) Obesity Code(s): E66.9 - OBESITY, UNSPECIFIED Status: Acute - Plan We will continue fluconazole for his candidemia. We will need to recheck cultures. Patient also will require ophthalmology consultation as outpatient. I am not sure if this patient requires an echocardiogram however will talk with infectious disease to see if we need to get an echo. We will continue current antibiotics. Patient may require MRI of the left foot. Wound care to see the patient. We will continue vancomycin, Zosyn and fluconazole. 10/22 his antibiotics changed per infectious disease. Will check blood cultures. Patient most likely will require PICC line. 10/23 we will check blood cultures. MRI ordered. Orthopedic consulted. We will continue current antibiotics. Will put in a PICC line for patient. 10/24 picc line placed. MRI indicates abscess pt will need to be seen by ortho. spoke with ID. will continue abx for now.
[2020-10-25] MEDS: Cefepime 2 GM in Sodium Chloride 0.9% 100 ML IVPB SCH ×2 (03:10→16:38)
[2020-10-25] MEDS: AMPicillin 2 GM in Sodium Chloride 0.9% 100 ML IVPB SCH ×3 (03:11→15:30)
[2020-10-25 08:39] VITALS: BP 171/80; TEMP 98
[2020-10-25] MEDS: Cholecalciferol 1,000 UNITS (25 MCG) TAB PO SCH (08:49)
[2020-10-25] MEDS: Lisinopril 20 MG TAB PO SCH (08:49)
[2020-10-25] MEDS: metFORMIN 500 MG TAB PO SCH (08:49)
[2020-10-25] MEDS: Aspirin Chewable 81 MG TAB PO SCH (08:49)
[2020-10-25] MEDS: Amlodipine 5 MG TAB PO SCH (08:50)
[2020-10-25] MEDS: Gabapentin 300 MG CAP PO SCH ×2 (08:50→15:32)
[2020-10-25] MEDS: Icosapent Ethyl 1 GM CAPSULE PO SCH (08:50)
[2020-10-25] MEDS: Saccharomyces boulardii 250 MG CAP PO SCH (08:50)
[2020-10-25] MEDS: Enoxaparin Sodium 40 MG/0.4 ML SYRINGE SC SCH (08:50)
[2020-10-25] MEDS: Empagliflozin 25 MG TAB PO SCH (08:50)
[2020-10-25] MEDS: INSULIN GLARGINE HUM REC ANLOG 300 UNIT/ML SC SCH (08:51)
[2020-10-25] MEDS: [UNRECOGNIZED DRUG - OTHER] PO SCH (08:51)
[2020-10-25] MEDS: Fluconazole In NaCl,Iso-Osm 400 MG in Premix Bag 1 BAG IVPB SCH (09:37)
[2020-10-26] MEDS ORDERED: Fluconazole 100 MG TAB PO SCH (09:00)
--- NOTE | 2020-10-26 14:48 | PDOC.DS.DS ---
Provider - Provider Date of Admission: 10/20/20 16:33 Date of Discharge: 10/25/20 Admitting Provider: Neva Alexandra MD Consultations: Infectious Disease Primary Care Physician: Neva Alexandra MD Course - Hospital Course Hospital Course: Pleasant 55-year-old male with a history of diabetes who presents to the hospital with complaints of pain to his left foot. Initially was admitted at [facility] and was treated with antibiotics for few days. However his wound got worse. At this time he was transferred over to [facility] for further eval uation. Patient was seen by orthopedic at [facility]. Infectious disease was consulted patient was put on antibiotics and antifungals. Patient was noted to have candidemia in one of his blood cultures. His repeat cultures were negative. He underwent a PICC line placement and was discharged home with antibiotics. He did have a MRI of the left foot which indicated abscess however the orthopedic that initially had done his surgery wanted the patient to be followed up as an outpatient and did not want to do any procedures while in the hospital. Patient had an appointment with infectious disease and with orthopedic prior to leaving the hospital. Resuscitation Status: 10/20/20 16:56 Resuscitation Status Routine Resuscitation Status: FULL: Full Resuscitation - Labs Lab Results: 10/23/20 05:55 10/23/20 05:56 Microbiology - Entire Visit 10/23/20 09:53 Venous blood - Right Arm Blood Culture - Preliminary NO GROWTH AT 48 HOURS 10/23/20 09:46 Venous blood - Left Arm Blood Culture - Preliminary NO GROWTH AT 48 HOURS - Physical Exam Vitals: Weight Admit Weight 270 lb Weight 270 lb Physical Exam: The patient was seen and examined on the day of discharge. Problem - Problem (1) Cellulitis Code(s): L03.90 - CELLULITIS, UNSPECIFIED Status: Acute (2) Diabetes Code(s): E11.9 - TYPE 2 DIABETES MELLITUS WITHOUT COMPLICATIONS Status: Acute (3) Candidemia Code(s): B37.7 - CANDIDAL SEPSIS Status: Acute (4) Obesity Code(s): E66.9 - OBESITY, UNSPECIFIED Status: Acute Plan - Discharge Medications Prescriptions: Fluconazole [Diflucan] 400 mg PO DAILY #14 tab Home Medications: Medication Instructions Recorded Confirmed Type Omeprazole [First-Omeprazole] 40 mg PO DAILY 07/05/13 10/20/20 History Aspirin Chewable [Aspirin Chewable 81 mg PO DAILY tab 04/29/17 10/20/20 Rx Tablet] metFORMIN [Glucophage] 1,000 mg PO BID-WM tab 05/01/17 10/20/20 Rx Amlodipine [Norvasc] 5 mg PO BID 10/20/20 10/20/20 History Cholecalciferol [Vitamin D3] 2,000 units PO DAILY 10/20/20 10/20/20 History Colestipol HCl [Colestid] 1 gm PO BID 10/20/20 10/20/20 History Cyanocobalamin 1000 MCG/ML VIA 1,000 mcg SC Q14D 10/20/20 10/20/20 History [Vitamin B-12] Empagliflozin [Jardiance] 25 mg PO DAILY 10/20/20 10/20/20 History Gabapentin [Neurontin] 600 mg PO TID 10/20/20 10/20/20 History Icosapent Ethyl [Vascepa] 2 gm PO DAILY 10/20/20 10/20/20 History Insulin Glargine,Hum.Rec.Anlog 76 unit SQ DAILY 10/20/20 10/20/20 History [Toujeo Max Solostar] Iron 90 mg PO DAILY 10/20/20 10/20/20 History L.Acid/L.Casei/B.Bif/B.Jay/Fos 1 cap PO BID 10/20/20 10/20/20 History [Probiotic Blend Capsule] Lisinopril [Zestril] 40 mg PO DAILY 10/20/20 10/20/20 History Metoprolol Succinate [Toprol XL] 100 mg PO BID 10/20/20 10/20/20 History Multivitamin [Multi-Vitamin Daily] 1 tablet PO DAILY 10/20/20 10/20/20 History AMPicillin 2 gm IVPB 0400,1000,1600,2200 vial 10/25/20 Rx Cefepime [Maxipime] 2 gm IVPB 0400,1600 vial 10/25/20 Rx Fluconazole [Diflucan] 400 mg PO DAILY #14 tab 10/25/20 Rx Allergies: Sulfa (Sulfonamide Antibiotics) Allergy (Intermediate, Verified 04/01/20 09:27) sertraline Allergy (Verified 04/01/20 09:27) - Discharge Instructions Discharge Instructions:: Notify MD or return to the ER for any of the following symptoms: fever, chills, uncontrolled pain, abnormal drainage or foul odor from wound. Follow-up with outpatient wound care. Activity:: Activity as Tolerated Nourishment:: Diabetic Diet, Heart Healthy Diet - Follow up Plan Referrals: Neva Alexandra MD [Primary Care Provider] - Marvel Ovalle MD [Active] - 10/26/20 2:00 pm (Appt at 2pm for IV antibiotics) Chris John MD [Active] - 10/31/20 1:45 pm (Appt for Dr. John for foot) Disposition: HOME Quality - Care Measures CORE MEASURES:: N/A
--- NOTE | 2020-10-27 12:34 | PQF ---
CLINICAL DOCUMENTATION CLARIFICATION FORM: Dear : Neva Alexandra MD Date / Time: 10/27/2020 Please exercise your independent, professional judgment in responding to the clarification form. Clinical indicators are provided on the bottom of this form for your review Please check appropriate box(s): to clarify the causal relationship of cellulitis and DM Cellulitis Site : left foot [ x] Due to Diabetes [ ] Not due to Diabetes [ ] Other diagnosis (Please specify if any) [ ] Unable to determine Physician Signature: Date/Time: For continuity of documentation, please document condition throughout progress notes and discharge summary. Thank You. To be completed by CDI/Coding staff for physician review: Present Clinical Indicators - Signs / Symptoms / Labs Results and Location in Medical Record [x] Left foot cellulits H&P on 10/20 [x] Left foot with erythema in the mid & hindfoot region ED provider report on 09/20 [x] Midfoot region with most likely an abscess Consult on 10/22 [ ] Present Risk Factors Results and Location in Medical Record [ ] Peripheral Vascular Disease [ x ] Diabetes H&P on 10/20 [ ] Neuropathy [ ] Recent surgery or infection of surgical site [ ] Recent injury to site [ ] Immunosuppression [ ] IV Drug Use Present Treatments Results and Location in Medical Record [ x ] Infectious consult Consult on 10/22 [ x ] Vancomycin 2 gm IV Medication on 10/21, 10/22 [ x ] Humalog Medication from 10/20 to 10/25 CDS/Home Health Manager Signature: AAS Phone #: Date/Time: 10/27/2020 This is a permanent part of the Medical Record [facility]
== END 2020-10-25 17:15 | disposition home or self-care (01) | DRG 638 ==
LOC: ONC 16:33
PROVIDERS: ADMIT Internal Medicine; ATTEND Internal Medicine
PROC: 02HV33Z Insertion of Infusion Device into Superior Vena Cava, Percutaneous Approach (ICD-10-PCS; principal; 2020-10-24)
PROC: B548ZZA Ultrasonography of Superior Vena Cava, Guidance (ICD-10-PCS; 2020-10-24)
DX: E11.628 Type 2 diabetes mellitus with other skin complications (principal); L03.116 Cellulitis of left lower limb; E66.9 Obesity, unspecified; Z20.828 Contact with and (suspected) exposure to other viral communicable diseases; I10 Essential (primary) hypertension; D72.829 Elevated white blood cell count, unspecified; E11.40 Type 2 diabetes mellitus with diabetic neuropathy, unspecified; E11.319 Type 2 diabetes mellitus with unspecified diabetic retinopathy without macular edema; Z79.82 Long term (current) use of aspirin; Z79.899 Other long term (current) drug therapy; Z88.2 Allergy status to sulfonamides; Z88.8 Allergy status to other drugs, medicaments and biological substances; Z79.84 Long term (current) use of oral hypoglycemic drugs; Z90.49 Acquired absence of other specified parts of digestive tract; Z68.37 Body mass index [BMI] 37.0-37.9, adult; Z89.421 Acquired absence of other right toe(s)
CPT/HCPCS: 36415; 36416; 36569; 80048; 80202; 82565; 83605; 83630; 85025; 85652; 87040; 87045; 87046; 87324; 87328; 87329; 87449; 87798; A9579; C1751; J0290; J0692; J1450; J1650; J2543; J3370; J3490; J7030

== ENCOUNTER 2021-01-23 11:47 | Outpatient (CLI) | payer BC | END 2021-01-23 11:48 | disposition home or self-care (01) | LOC: BICRAD 11:47 | PROVIDERS: ATTEND Internal Medicine Infectious Disease | DX: S91.301A Unspecified open wound, right foot, initial encounter (principal); M86.9 Osteomyelitis, unspecified; L03.115 Cellulitis of right lower limb ==

== ENCOUNTER 2021-08-27 08:58 | Outpatient (CLI) | payer BC ==
[2021-08-28 00:58] LABS: SARS-CoV-2 PCR by NAA Not Detected (NotDetected)
== END 2021-08-27 08:59 | disposition home or self-care (01) ==
LOC: LABBT 08:58
PROVIDERS: ATTEND Ophthalmology Retina Specialist
DX: Z01.812 Encounter for preprocedural laboratory examination (principal); H43.12 Vitreous hemorrhage, left eye; Z20.822 Contact with and (suspected) exposure to COVID-19
CPT/HCPCS: U0003; U0005

== ENCOUNTER 2021-08-30 07:24 | Day surgery (SDC) | payer BC ==
[2021-08-29 11:20] VITALS: BMI 37.5
[~2021-08-30 07:24] MED LIST changes: +EPINEPHrine 0.3 MG, Dextrose 50% 3 ML in Ophthalmic Irrigation Solution 500 ML IRR SCH; -Heparin 1,000 UNITS/ML VIAL ONE
[2021-08-30] MEDS ORDERED: Cyclopentolate 1% Opth Drop 2 ML BOT ONE (07:35)
[2021-08-30] MEDS ORDERED: Phenylephrine 2.5% Ophth Soln 5 ML BOT ONE ×2 (07:35)
[2021-08-30] MEDS ORDERED: Cyclopentolate W/ Phenylephrin 40 DROP/2 ML BOT ONE (07:35)
[2021-08-30] MEDS ORDERED: Lidocaine 1% PF 5 ML VIAL ONE (08:03)
[2021-08-30] MEDS ORDERED: Triamcinolone 40 MG/ML VIAL ONE (08:03)
[2021-08-30] MEDS ORDERED: Lidocaine 4% PF 5 ML AMP ONE (08:03)
[2021-08-30] MEDS ORDERED: Dextrose 50% Abboject 50 ML SYRINGE ONE (08:03)
[2021-08-30] MEDS ORDERED: Bupivacaine PF 0.75% SDV 10 ML ONE (08:03)
[2021-08-30] MEDS ORDERED: CEFAZOLIN 1 GM VIAL ONE (08:03)
[2021-08-30] MEDS ORDERED: PROPOFOL 200 MG/20 ML VIAL ONE (08:03)
[2021-08-30] MEDS ORDERED: Maxitrol 0.1% Opth Oint 3.5 GM TUBE ONE (08:03)
== END 2021-08-30 09:59 | disposition home or self-care (01) ==
LOC: SDC 07:24
PROVIDERS: ATTEND Ophthalmology Retina Specialist
PROC: 08QF3ZZ Repair Left Retina, Percutaneous Approach (ICD-10-PCS; principal; 2021-08-30)
PROC: 08T53ZZ Resection of Left Vitreous, Percutaneous Approach (ICD-10-PCS; principal; 2021-08-30)
DX: E11.3592 Type 2 diabetes mellitus with proliferative diabetic retinopathy without macular edema, left eye (principal); H43.12 Vitreous hemorrhage, left eye; I10 Essential (primary) hypertension; K21.9 Gastro-esophageal reflux disease without esophagitis; Z79.4 Long term (current) use of insulin; Z79.899 Other long term (current) drug therapy; Z88.2 Allergy status to sulfonamides; Z88.8 Allergy status to other drugs, medicaments and biological substances
CPT/HCPCS: J0171; J0690; J2704; J3301; J3490

== ENCOUNTER 2021-10-07 17:22 | Inpatient (IN) | payer BC ==
[~2021-10-07 17:22] MED LIST changes: -EPINEPHrine 0.3 MG, Dextrose 50% 3 ML in Ophthalmic Irrigation Solution 500 ML IRR SCH; +Heparin 1,000 UNITS/ML VIAL ONE
[2021-10-07 19:25] VITALS: BMI 36.8
[2021-10-07] MEDS ORDERED: Ondansetron PF 4 MG/2 ML Vial IVP PRN (20:34)
[2021-10-07] MEDS ORDERED: HumaLOG 300 UNITS/3 ML VIAL SC PRN (20:36)
[2021-10-07] MEDS ORDERED: Dextrose 5% in Water 1,000 ML IV PRN (20:36)
[2021-10-07] MEDS ORDERED: Dextrose 50% Abboject 50 ML SYRINGE SLOW IVP PRN (20:36)
[2021-10-07] MEDS ORDERED: hydrALAZINE 20 MG/ML VIAL SLOW IVP PRN (20:37)
[2021-10-08] MEDS: NEOMYCIN-POLYMYXIN-HC EAR SUSP 200 DROP/10 ML BOT L EAR SCH ×3 (02:11→17:00)
[2021-10-08] MEDS: VANCOMYCIN 2 GRAM/400 ML BAG 2 GM in Premix Bag 1 BAG IVPB SCH ×2 (02:11→14:32)
[2021-10-08 07:54] LABS: #Basophils 0.1 thou/uL (0.0-0.2); #Eosinphils 0.3 thou/uL (0.0-0.7); #Lymphocytes 1.7 thou/uL (1.20-3.40); #Monocytes 0.8 thou/uL (0.11-0.59); %Basophils 0.6 % (0.0-1.0); %Eosinophils 2.7 % (0.0-10.0); %Lymphocytes 15.4 % (21.0-51.0); %Monocytes 7.5 % (0.0-10.0); %Neutrophils 73.9 % (42.0-75.0); Hemoglobin 14.5 g/dL (14.0-18.0); Mean Corpuscular HGB CONC 34.4 g/dL (32.0-36.0); Mean Corpuscular Hemoglobin 31.7 pg (27.0-31.0); Mean Corpuscular Volume 92.3 fL (78.0-98.0); Mean Platelet Volume 7.4 fL (7.4-10.4); Platelet Count 343 thou/uL (130-400); RBC Distribution Width 11.9 % (11.5-14.5); Red Blood Cell (RBC) Count 4.59 mill/uL (4.70-6.10); White Blood Cell (WBC) Count 10.8 thou/uL (4.8-10.8)
[2021-10-08 08:15] LABS: ALT (SGPT) 19 U/L (8-55); AST (SGOT) 14 U/L (5-34); Albumin 3.2 g/dL (3.5-5.0); Alkaline Phosphatase 78 U/L (40-110); Bilirubin, Direct 0.1 mg/dL (0.1-0.3); Bilirubin, Total 0.2 mg/dL (0.2-1.2); Protein, Total 6.9 g/dL (6.0-8.3)
[2021-10-08 08:19] LABS: Anion Gap 13 mmol/L (10-20); BUN (Urea Nitrogen) 13 mg/dL (8.4-25.7); Calc. Creatinine Clearance 164 mL/min (70-130); Calcium 9.5 mg/dL (7.8-10.44); Carbon Dioxide 22 mmol/L (22-29); Chloride 106 mmol/L (98-107); Glucose 188 mg/dL (70-105); Potassium 4.1 mmol/L (3.5-5.1); Sodium 137 mmol/L (136-145)
[2021-10-08] MEDS ORDERED: Amlodipine 5 MG TAB PO SCH (10:15)
[2021-10-08] MEDS ORDERED: Gabapentin 300 MG CAP PO SCH (10:15)
[2021-10-08] MEDS ORDERED: Empagliflozin 25 MG TAB PO SCH (10:15)
[2021-10-08] MEDS ORDERED: Lisinopril 20 MG TAB PO SCH (10:15)
[2021-10-08] MEDS: Acetaminophen 325 MG TAB PO PRN ×2 (16:03→20:43)
[2021-10-08] MEDS: metFORMIN 500 MG TAB PO SCH (17:00)
[2021-10-08] MEDS: HumaLOG 300 UNITS/3 ML VIAL SC PRN (17:00)
[2021-10-08] MEDS: Icosapent Ethyl 1 GM CAPSULE PO SCH (17:00)
[2021-10-08] MEDS: Gabapentin 300 MG CAP PO SCH (20:43)
[2021-10-08] MEDS: Amlodipine 5 MG TAB PO SCH (20:45)
[2021-10-08] MEDS: prednisoLONE 1% Ophth Susp 5 ml Bottle L EYE SCH (20:50)
[2021-10-09] MEDS: NEOMYCIN-POLYMYXIN-HC EAR SUSP 200 DROP/10 ML BOT L EAR SCH ×3 (02:09→16:07)
[2021-10-09 02:22] LABS: #Basophils 0.1 thou/uL (0.0-0.2); #Eosinphils 0.2 thou/uL (0.0-0.7); #Lymphocytes 1.9 thou/uL (1.20-3.40); #Monocytes 1.2 thou/uL (0.11-0.59); #Neutrophils 10.7 thou/uL (1.40-6.50); %Basophils 0.4 % (0.0-1.0); %Eosinophils 1.2 % (0.0-10.0); %Lymphocytes 13.6 % (21.0-51.0); %Monocytes 8.8 % (0.0-10.0); Hemoglobin 14.2 g/dL (14.0-18.0); Mean Corpuscular HGB CONC 34.2 g/dL (32.0-36.0); Mean Corpuscular Hemoglobin 31.7 pg (27.0-31.0); Mean Corpuscular Volume 92.8 fL (78.0-98.0); Mean Platelet Volume 7.2 fL (7.4-10.4); Platelet Count 359 thou/uL (130-400); RBC Distribution Width 11.9 % (11.5-14.5); Red Blood Cell (RBC) Count 4.49 mill/uL (4.70-6.10); White Blood Cell (WBC) Count 14.1 thou/uL (4.8-10.8)
[2021-10-09 02:38] LABS: Vancomycin, Trough 14.4 ug/mL
[2021-10-09 02:52] LABS: Anion Gap 10 mmol/L (10-20); BUN (Urea Nitrogen) 15 mg/dL (8.4-25.7); Calc. Creatinine Clearance 172 mL/min (70-130); Calcium 9.5 mg/dL (7.8-10.44); Carbon Dioxide 25 mmol/L (22-29); Chloride 104 mmol/L (98-107); Glucose 177 mg/dL (70-105); Sodium 135 mmol/L (136-145)
[2021-10-09] MEDS: VANCOMYCIN 2 GRAM/400 ML BAG 2 GM in Premix Bag 1 BAG IVPB SCH ×2 (03:06→18:53)
[2021-10-09] MEDS: Aspirin 81 mg Enteric Coated Tablet PO SCH (07:21)
[2021-10-09] MEDS: Lantus 1000 UNITS/10 ML VIAL SC SCH (07:21)
[2021-10-09] MEDS: Enoxaparin Sodium 40 MG/0.4 ML SYRINGE SC SCH (07:21)
[2021-10-09] MEDS: Icosapent Ethyl 1 GM CAPSULE PO SCH ×2 (07:48→16:08)
[2021-10-09] MEDS: Empagliflozin 25 MG TAB PO SCH (07:48)
[2021-10-09] MEDS: Loratadine/Pseudoephedrine 10/240 mg Tablet PO SCH (07:48)
[2021-10-09] MEDS: Gabapentin 300 MG CAP PO SCH ×2 (07:49→19:35)
[2021-10-09] MEDS: Lisinopril 20 MG TAB PO SCH (07:50)
[2021-10-09] MEDS: Amlodipine 5 MG TAB PO SCH ×2 (07:50→19:34)
[2021-10-09] MEDS: Acetaminophen 325 MG TAB PO PRN (07:53)
[2021-10-09] MEDS: prednisoLONE 1% Ophth Susp 5 ml Bottle L EYE SCH ×2 (07:54→19:36)
[2021-10-09] MEDS: metFORMIN 500 MG TAB PO SCH ×2 (07:56→16:07)
[2021-10-09] MEDS ORDERED: Magnevist 469MG/ML 20 ML VIAL ONE (10:26)
[2021-10-09] MEDS ORDERED: PROPOFOL 200 MG/20 ML VIAL ONE (17:03)
[2021-10-09] MEDS ORDERED: Lidocaine 1% PF 5 ML VIAL ONE (17:03)
[2021-10-09] MEDS ORDERED: traMADol HCl 50 MG TAB PO PRN (17:03)
[2021-10-09] MEDS ORDERED: Ondansetron PF 4 MG/2 ML Vial ONE (17:03)
[2021-10-09] MEDS ORDERED: Ondansetron HCl/PF 4 MG/2 ML Vial IVP PRN (17:44)
[2021-10-09] MEDS ORDERED: Promethazine HCl 25 MG/ML VIAL IVPB PRN (17:44)
[2021-10-09] MEDS ORDERED: Promethazine HCl 25 MG/ML VIAL IM PRN (17:44)
[2021-10-09] MEDS: cefTRIAXone\\ROCEPHIN 2 GM in Sodium Chloride 0.9% 100 ML IVPB SCH (18:53)
[2021-10-10] MEDS: NEOMYCIN-POLYMYXIN-HC EAR SUSP 200 DROP/10 ML BOT L EAR SCH ×3 (01:17→15:56)
[2021-10-10] MEDS: VANCOMYCIN 2 GRAM/400 ML BAG 2 GM in Premix Bag 1 BAG IVPB SCH ×2 (02:29→14:43)
[2021-10-10 02:33] LABS: Vancomycin, Trough 20.6 ug/mL
[2021-10-10] MEDS ORDERED: Famotidine 20 MG TAB PO SCH (02:45)
[2021-10-10] MEDS: HumaLOG 300 UNITS/3 ML VIAL SC PRN ×2 (04:41→16:03)
[2021-10-10 06:33] LABS: #Basophils 0.1 thou/uL (0.0-0.2); #Eosinphils 0.2 thou/uL (0.0-0.7); #Lymphocytes 1.7 thou/uL (1.20-3.40); #Monocytes 1.1 thou/uL (0.11-0.59); #Neutrophils 8.9 thou/uL (1.40-6.50); %Basophils 0.4 % (0.0-1.0); %Lymphocytes 13.9 % (21.0-51.0); %Neutrophils 74.6 % (42.0-75.0); Hemoglobin 13.6 g/dL (14.0-18.0); Mean Corpuscular HGB CONC 33.2 g/dL (32.0-36.0); Mean Corpuscular Hemoglobin 30.8 pg (27.0-31.0); Mean Corpuscular Volume 92.6 fL (78.0-98.0); Mean Platelet Volume 7.1 fL (7.4-10.4); Platelet Count 366 thou/uL (130-400); RBC Distribution Width 11.6 % (11.5-14.5); Red Blood Cell (RBC) Count 4.41 mill/uL (4.70-6.10); White Blood Cell (WBC) Count 11.9 thou/uL (4.8-10.8)
[2021-10-10 06:54] LABS: Anion Gap 12 mmol/L (10-20); BUN (Urea Nitrogen) 11 mg/dL (8.4-25.7); Calc. Creatinine Clearance 168 mL/min (70-130); Calcium 9.4 mg/dL (7.8-10.44); Carbon Dioxide 23 mmol/L (22-29); Chloride 103 mmol/L (98-107); Glucose 213 mg/dL (70-105); Potassium 4.1 mmol/L (3.5-5.1); Sodium 134 mmol/L (136-145)
[2021-10-10] MEDS: Amlodipine 5 MG TAB PO SCH ×2 (07:58→21:11)
[2021-10-10] MEDS: Loratadine/Pseudoephedrine 10/240 mg Tablet PO SCH (07:58)
[2021-10-10] MEDS: metFORMIN 500 MG TAB PO SCH ×2 (07:58→15:56)
[2021-10-10] MEDS: Empagliflozin 25 MG TAB PO SCH (07:58)
[2021-10-10] MEDS: Icosapent Ethyl 1 GM CAPSULE PO SCH ×2 (07:58→15:56)
[2021-10-10] MEDS: Gabapentin 300 MG CAP PO SCH ×2 (07:58→21:11)
[2021-10-10] MEDS: Enoxaparin Sodium 40 MG/0.4 ML SYRINGE SC SCH (07:59)
[2021-10-10] MEDS: prednisoLONE 1% Ophth Susp 5 ml Bottle L EYE SCH ×2 (07:59→21:10)
[2021-10-10] MEDS: Aspirin 81 mg Enteric Coated Tablet PO SCH (07:59)
[2021-10-10] MEDS: Lantus 1000 UNITS/10 ML VIAL SC SCH (07:59)
[2021-10-10] MEDS: Lisinopril 20 MG TAB PO SCH (07:59)
[2021-10-10] MEDS: Nystatin Cream 30 GM TUBE TOP SCH ×3 (08:00→21:10)
[2021-10-10] MEDS ORDERED: DAPTOmycin 500 MG in Sodium Chloride 0.9% 100 ML IVPB SCH ×2 (12:00→12:15)
[2021-10-10] MEDS: cefTRIAXone\\ROCEPHIN 2 GM in Sodium Chloride 0.9% 100 ML IVPB SCH (12:16)
[2021-10-11] MEDS: VANCOMYCIN 2 GRAM/400 ML BAG 2 GM in Premix Bag 1 BAG IVPB SCH ×2 (03:20→13:01)
[2021-10-11] MEDS: NEOMYCIN-POLYMYXIN-HC EAR SUSP 200 DROP/10 ML BOT L EAR SCH (03:20)
[2021-10-11] MEDS: Nystatin Cream 30 GM TUBE TOP SCH ×2 (08:12→15:39)
[2021-10-11] MEDS: Icosapent Ethyl 1 GM CAPSULE PO SCH ×2 (08:13→16:26)
[2021-10-11] MEDS: Lantus 1000 UNITS/10 ML VIAL SC SCH (08:13)
[2021-10-11] MEDS: Enoxaparin Sodium 40 MG/0.4 ML SYRINGE SC SCH (08:13)
[2021-10-11] MEDS: prednisoLONE 1% Ophth Susp 5 ml Bottle L EYE SCH (08:13)
[2021-10-11] MEDS: Aspirin 81 mg Enteric Coated Tablet PO SCH (08:13)
[2021-10-11] MEDS: Gabapentin 300 MG CAP PO SCH (08:13)
[2021-10-11] MEDS: metFORMIN 500 MG TAB PO SCH ×2 (08:14→16:26)
[2021-10-11] MEDS: Amlodipine 5 MG TAB PO SCH (08:14)
[2021-10-11] MEDS: Lisinopril 20 MG TAB PO SCH (08:14)
[2021-10-11] MEDS: Empagliflozin 25 MG TAB PO SCH (08:14)
[2021-10-11] MEDS: Loratadine/Pseudoephedrine 10/240 mg Tablet PO SCH (08:15)
[2021-10-11] MEDS: cefTRIAXone\\ROCEPHIN 2 GM in Sodium Chloride 0.9% 100 ML IVPB SCH (11:36)
[2021-10-11] MEDS: HumaLOG 300 UNITS/3 ML VIAL SC PRN (11:38)
[2021-10-11 12:26] VITALS: BP 116/72; TEMP 98
[2021-10-11] MEDS ORDERED: Fluconazole 100 MG TAB PO SCH (15:15)
[2021-10-12] MEDS ORDERED: Fluconazole 100 MG TAB PO SCH (09:00)
== END 2021-10-11 16:33 | disposition home health service (06) | DRG 617 ==
LOC: T4-B 18:44
PROVIDERS: ADMIT Internal Medicine; ATTEND Internal Medicine Geriatric Medicine
PROC: 0Y6M0Z9 Detachment at Right Foot, Partial 1st Ray, Open Approach (ICD-10-PCS; principal; 2021-10-09)
PROC: 0Y6M0ZB Detachment at Right Foot, Partial 2nd Ray, Open Approach (ICD-10-PCS; 2021-10-09)
PROC: 0HBNXZZ Excision of Left Foot Skin, External Approach (ICD-10-PCS; 2021-10-09)
PROC: 02HV33Z Insertion of Infusion Device into Superior Vena Cava, Percutaneous Approach (ICD-10-PCS; 2021-10-10)
PROC: B5181ZA Fluoroscopy of Superior Vena Cava using Low Osmolar Contrast, Guidance (ICD-10-PCS; 2021-10-10)
PROC: B548ZZA Ultrasonography of Superior Vena Cava, Guidance (ICD-10-PCS; 2021-10-10)
DX: E11.69 Type 2 diabetes mellitus with other specified complication (principal); L03.115 Cellulitis of right lower limb; B37.49 Other urogenital candidiasis; M86.8X7 Other osteomyelitis, ankle and foot; E11.621 Type 2 diabetes mellitus with foot ulcer; Z20.822 Contact with and (suspected) exposure to COVID-19; E11.42 Type 2 diabetes mellitus with diabetic polyneuropathy; E11.319 Type 2 diabetes mellitus with unspecified diabetic retinopathy without macular edema; E11.610 Type 2 diabetes mellitus with diabetic neuropathic arthropathy; I10 Essential (primary) hypertension; E78.5 Hyperlipidemia, unspecified; L84 Corns and callosities; H60.92 Unspecified otitis externa, left ear; L97.529 Non-pressure chronic ulcer of other part of left foot with unspecified severity; E66.9 Obesity, unspecified; Z88.2 Allergy status to sulfonamides; Z88.8 Allergy status to other drugs, medicaments and biological substances; Z68.36 Body mass index [BMI] 36.0-36.9, adult
CPT/HCPCS: 36415; 36416; 36569; 80048; 80076; 80202; 82550; 85025; 87040; 87070; 87076; 87077; 87186; 87205; 88305; 88311; A9579; C1751; J0696; J0878; J1644; J1815; J2405; J2704; J3370; J3490

== ENCOUNTER 2021-12-13 10:09 | Emergency (ER) | payer BC | END 2021-12-13 11:22 | disposition home or self-care (01) | LOC: ERS 10:09 | DX: Z47.89 Encounter for other orthopedic aftercare (principal); E11.9 Type 2 diabetes mellitus without complications; I10 Essential (primary) hypertension | CPT/HCPCS: 99282 ==

== ENCOUNTER 2021-12-20 10:18 | Outpatient (CLI) | payer BC ==
[~2021-12-20 10:18] MED LIST changes: -Heparin 1,000 UNITS/ML VIAL ONE; +Magnevist 469MG/ML 20 ML VIAL ONE
== END 2021-12-20 10:19 | disposition home or self-care (01) ==
LOC: MRI 10:18
PROVIDERS: ATTEND Internal Medicine Infectious Disease
DX: M86.671 Other chronic osteomyelitis, right ankle and foot (principal); L02.415 Cutaneous abscess of right lower limb; M86.8X7 Other osteomyelitis, ankle and foot; M85.871 Other specified disorders of bone density and structure, right ankle and foot; Z98.890 Other specified postprocedural states
CPT/HCPCS: 96365; J2248; J3490

== ENCOUNTER 2022-02-26 19:34 | Inpatient (IN) | payer BC ==
[2022-02-26] MEDS ORDERED: Loperamide HCl 2 MG CAP PO PRN ×2 (22:43)
[2022-02-26] MEDS ORDERED: Dextrose 5% in Water 1,000 ML IV PRN (22:43)
[2022-02-26] MEDS ORDERED: Sodium Chloride 0.65% Nasal 44 ML BOT EA NARE PRN (22:43)
[2022-02-26] MEDS ORDERED: Acetaminophen 650 MG Suppository PR PRN (22:43)
[2022-02-26] MEDS ORDERED: Benzonatate 100 MG CAP PO PRN (22:43)
[2022-02-26] MEDS ORDERED: Senokot S 8.6-50 MG TAB PO PRN (22:43)
[2022-02-26] MEDS ORDERED: Labetalol HCl 100 MG/20 ML VIAL SLOW IVP PRN (22:43)
[2022-02-26] MEDS ORDERED: Ondansetron ODT 4 MG TAB PO PRN (22:43)
[2022-02-26] MEDS ORDERED: Dextrose 50% Abboject 50 ML SYRINGE SLOW IVP PRN (22:43)
[2022-02-26] MEDS ORDERED: Calcium Carbonate 500 MG ChewTAB PO PRN (22:43)
[2022-02-26] MEDS ORDERED: Ondansetron PF 4 MG/2 ML Vial IVP PRN (22:43)
[2022-02-26] MEDS ORDERED: Bisacodyl 5 MG TAB PO PRN (22:43)
[2022-02-26] MEDS ORDERED: hydrALAZINE 20 MG/ML VIAL SLOW IVP PRN (22:43)
[2022-02-26] MEDS ORDERED: Morphine 2 MG/ML VIAL SLOW IVP PRN (22:51)
[2022-02-26 23:08] VITALS: BMI 39.0
[2022-02-26] MEDS ORDERED: Piperacillin/Tazobactam 3.375 GM in Sodium Chloride 0.9% 100 ML IVPB SCH (23:15)
[2022-02-26] MEDS: Acetaminophen 325 MG TAB PO PRN (23:45)
[2022-02-27] MEDS: Acetaminophen 325 MG TAB PO PRN ×4 (04:17→20:47)
[2022-02-27] MEDS: Piperacillin/Tazobactam 3.375 GM in Sodium Chloride 0.9% 100 ML IVPB SCH ×2 (04:17→11:28)
[2022-02-27 05:07] LABS: Hemoglobin A1c 8.9 % (4.0-6.0)
[2022-02-27 05:19] LABS: ALT (SGPT) 40 U/L (8-55); AST (SGOT) 32 U/L (5-34); Albumin 4.2 g/dL (3.5-5.0); Alkaline Phosphatase 112 U/L (40-110); Anion Gap 16 mmol/L (10-20); BUN (Urea Nitrogen) 15 mg/dL (8.4-25.7); Bilirubin, Total 0.6 mg/dL (0.2-1.2); Calc. Creatinine Clearance 151 mL/min (70-130); Calcium 10.2 mg/dL (7.8-10.44); Carbon Dioxide 26 mmol/L (22-29); Chloride 99 mmol/L (98-107); Globulin 3.5 g/dL (2.4-3.5); Glucose 135 mg/dL (70-105); Potassium 4.4 mmol/L (3.5-5.1); Protein, Total 7.7 g/dL (6.0-8.3); Sodium 137 mmol/L (136-145)
[2022-02-27 05:38] LABS: Band 4 % (5-11); Eosinophils 1 % (0-10); Hemoglobin 16.2 g/dL (14.0-18.0); Lymphocytes 6 % (21-51); MDiff Complete? YES; Mean Corpuscular HGB CONC 32.5 g/dL (32.0-36.0); Mean Corpuscular Hemoglobin 28.8 pg (27.0-31.0); Mean Corpuscular Volume 88.6 fL (78.0-98.0); Monocytes 4 % (0-10); Neutrophil 85 % (42-75); Platelet Count 333 thou/uL (130-400); Platelet Morphology Comment Appears Adequate; RBC Distribution Width 13.1 % (11.5-14.5); RBC Morphology Normal; Red Blood Cell (RBC) Count 5.64 mill/uL (4.70-6.10); White Blood Cell (WBC) Count 16.4 thou/uL (4.8-10.8)
[2022-02-27] MEDS: Aspirin 81 mg Enteric Coated Tablet PO SCH (08:14)
[2022-02-27] MEDS: Fluconazole 100 MG TAB PO SCH (08:15)
[2022-02-27] MEDS: Lisinopril 20 MG TAB PO SCH (08:15)
[2022-02-27] MEDS: Gabapentin 300 MG CAP PO SCH ×4 (08:15→20:40)
[2022-02-27] MEDS: Insulin Glargine 30 UNITS/0.3 ML VIAL SC SCH ×2 (08:16→20:42)
[2022-02-27] MEDS: Amlodipine 5 MG TAB PO SCH ×2 (08:16→20:40)
[2022-02-27] MEDS: Enoxaparin Sodium 40 MG/0.4 ML SYRINGE SC SCH (08:17)
[2022-02-27] MEDS: Empagliflozin 25 MG TAB PO SCH (10:03)
[2022-02-27 12:05] LABS: SARS-CoV-2 PCR by NAA Not Detected (NotDetected)
[2022-02-27] MEDS ORDERED: Lactated Ringer's 1,000 ML IV SCH (12:15)
[2022-02-27 13:34] LABS: SARS-CoV-2 NAA Rapid Test Not Detected (NotDetected)
[2022-02-27] MEDS ORDERED: Meropenem 1 GM in Sodium Chloride 0.9% 100 ML IVPB SCH ×2 (16:00→22:00)
[2022-02-27] MEDS: Icosapent Ethyl 1 GM CAPSULE PO SCH (16:52)
[2022-02-27] MEDS ORDERED: Non-Formulary Item 1 EACH (Icosapent Ethyl 1 GM Capsule) PO SCH (17:00)
[2022-02-27] MEDS: metFORMIN 500 MG TAB PO SCH (20:39)
[2022-02-28 05:33] LABS: Vancomycin, Trough 16.9 ug/mL
[2022-02-28] MEDS: Acetaminophen 325 MG TAB PO PRN (06:04)
[2022-02-28] MEDS: Cholecalciferol 1,000 UNITS (25 MCG) TAB PO SCH (08:12)
[2022-02-28] MEDS: Enoxaparin Sodium 40 MG/0.4 ML SYRINGE SC SCH (08:12)
[2022-02-28] MEDS: metFORMIN 500 MG TAB PO SCH ×2 (08:12→20:50)
[2022-02-28] MEDS: Fluconazole 100 MG TAB PO SCH (08:12)
[2022-02-28] MEDS: Lisinopril 20 MG TAB PO SCH (08:13)
[2022-02-28] MEDS: Multivitamin W/ Minerals 1 TAB PO SCH (08:13)
[2022-02-28] MEDS: Amlodipine 5 MG TAB PO SCH ×2 (08:13→20:50)
[2022-02-28] MEDS: Aspirin 81 mg Enteric Coated Tablet PO SCH (08:13)
[2022-02-28] MEDS: Empagliflozin 25 MG TAB PO SCH (08:13)
[2022-02-28] MEDS: Insulin Glargine 30 UNITS/0.3 ML VIAL SC SCH ×2 (08:14→21:09)
[2022-02-28] MEDS: Gabapentin 300 MG CAP PO SCH ×4 (08:14→20:51)
[2022-02-28] MEDS: Icosapent Ethyl 1 GM CAPSULE PO SCH ×2 (08:14→16:55)
[2022-02-28] MEDS ORDERED: Non-Formulary Item 1 EACH (Omeprazole [Omeprazole] 40 MG Capsule.Dr) PO SCH (09:00)
[2022-02-28] MEDS ORDERED: Non-Formulary Item 1 EACH (Insulin Glargine,Hum.Rec.Anlog [Toujeo Max Solostar] 300 UNIT/ SQ SCH (09:00)
[2022-02-28] MEDS ORDERED: Non-Formulary Item 1 EACH (Cholecalciferol (Vitamin D3) [Vitamin D3] 1,000 UNIT Capsule) PO SCH (09:00)
[2022-02-28] MEDS ORDERED: Insulin Glargine 30 UNITS/0.3 ML VIAL SC SCH (09:00)
[2022-02-28] MEDS: Meropenem 1 GM in Sodium Chloride 0.9% 100 ML IVPB SCH ×3 (09:34→23:53)
[2022-02-28] MEDS ORDERED: DAPTOmycin 500 MG VIAL SLOW IVP SCH (18:00)
[2022-02-28] MEDS: Miconazole 2% Vaginal Cream 45 GM TUBE TOP SCH (21:09)
[2022-03-01 05:57] LABS: #Basophils 0.1 thou/uL (0.0-0.2); #Eosinphils 0.5 thou/uL (0.0-0.7); #Neutrophils 6.5 thou/uL (1.40-6.50); %Basophils 0.5 % (0.0-1.0); %Eosinophils 4.9 % (0.0-10.0); %Lymphocytes 20.2 % (21.0-51.0); %Monocytes 9.6 % (0.0-10.0); %Neutrophils 64.7 % (42.0-75.0); Mean Corpuscular HGB CONC 33.8 g/dL (32.0-36.0); Mean Corpuscular Hemoglobin 29.8 pg (27.0-31.0); Mean Corpuscular Volume 88.2 fL (78.0-98.0); Mean Platelet Volume 7.5 fL (7.4-10.4); Platelet Count 333 thou/uL (130-400); RBC Distribution Width 12.9 % (11.5-14.5); White Blood Cell (WBC) Count 10.1 thou/uL (4.8-10.8)
[2022-03-01 06:21] LABS: Anion Gap 14 mmol/L (10-20); BUN (Urea Nitrogen) 9 mg/dL (8.4-25.7); CK (CPK) 78 U/L (30-200); Calc. Creatinine Clearance 181 mL/min (70-130); Calcium 9.2 mg/dL (7.8-10.44); Carbon Dioxide 26 mmol/L (22-29); Chloride 102 mmol/L (98-107); Glucose 107 mg/dL (70-105); Sodium 138 mmol/L (136-145)
[2022-03-01] MEDS: Meropenem 1 GM in Sodium Chloride 0.9% 100 ML IVPB SCH ×2 (09:06→16:10)
[2022-03-01] MEDS: Icosapent Ethyl 1 GM CAPSULE PO SCH (09:07)
[2022-03-01] MEDS: Multivitamin W/ Minerals 1 TAB PO SCH (09:07)
[2022-03-01] MEDS: Gabapentin 300 MG CAP PO SCH (09:07)
[2022-03-01] MEDS: Empagliflozin 25 MG TAB PO SCH (09:07)
[2022-03-01] MEDS: Aspirin 81 mg Enteric Coated Tablet PO SCH (09:07)
[2022-03-01] MEDS: Lisinopril 20 MG TAB PO SCH (09:07)
[2022-03-01] MEDS: metFORMIN 500 MG TAB PO SCH ×2 (09:08→20:01)
[2022-03-01] MEDS: Amlodipine 5 MG TAB PO SCH ×2 (09:08→20:01)
[2022-03-01] MEDS: Cholecalciferol 1,000 UNITS (25 MCG) TAB PO SCH (09:08)
[2022-03-01] MEDS: Enoxaparin Sodium 40 MG/0.4 ML SYRINGE SC SCH (09:08)
[2022-03-01] MEDS: Insulin Glargine 30 UNITS/0.3 ML VIAL SC SCH ×2 (09:08→20:01)
[2022-03-01] MEDS: Miconazole 2% Vaginal Cream 45 GM TUBE TOP SCH (09:09)
[2022-03-01] MEDS: Morphine 4 MG/ML VIAL SLOW IVP PRN ×3 (09:41→20:23)
[2022-03-01] MEDS ORDERED: Aluminum & Magnesium Hydroxide 60 ML, Lidocaine 2% Viscous Solution 30 ML, diphenhydrAM... SSW PRN (10:07)
[2022-03-01] MEDS: HumaLOG 300 UNITS/3 ML VIAL SC PRN ×2 (12:28→20:56)
[2022-03-01] MEDS: methylPREDNISolone Sod Succ 40 MG VIAL IVP SCH (16:10)
[2022-03-01 16:52] LABS: Bilirubin Negative (Negative); Blood, Urine 1+ (Negative); Clarity Clear (Clear); Glucose, Urine (Dipstick) Greater than 1000 mg/dL (Negative); Ketone, Urine Negative (Negative); Leukocyte Negative Leu/uL (Negative); Nitrite Negative (Negative); Protein, Urine (Dipstick) Negative (Neg-Trace); Specific Gravity, Urine 1.033 (1.002-1.036); Squamous Epithelial 0-3 HPF (0-3); Urobilinogen Normal mg/dL (Less than 2)
[2022-03-01 16:53] LABS: Bacteria/HPF Rare-Few HPF (None Seen)
[2022-03-01] MEDS: Clotrimazole 1 % Cream 30 GM TUBE TOP SCH (20:19)
[2022-03-01] MEDS: Phenazopyridine HCl 100 MG TAB PO SCH (20:20)
[2022-03-01] MEDS: Acetaminophen 325 MG TAB PO PRN (20:22)
[2022-03-01] MEDS ORDERED: Phenazopyridine HCl 97.5 MG TABLET PO SCH (21:00)
[2022-03-02] MEDS: Meropenem 1 GM in Sodium Chloride 0.9% 100 ML IVPB SCH ×2 (00:06→08:52)
[2022-03-02] MEDS: methylPREDNISolone Sod Succ 40 MG VIAL IVP SCH ×4 (00:39→23:21)
[2022-03-02] MEDS: Morphine 4 MG/ML VIAL SLOW IVP PRN ×3 (03:09→16:27)
[2022-03-02 06:22] LABS: #Lymphocytes 1.4 thou/uL (1.20-3.40); #Monocytes 0.2 thou/uL (0.11-0.59); #Neutrophils 8.4 thou/uL (1.40-6.50); %Basophils 0.2 % (0.0-1.0); %Eosinophils 0.2 % (0.0-10.0); %Lymphocytes 13.8 % (21.0-51.0); %Monocytes 2.3 % (0.0-10.0); %Neutrophils 83.6 % (42.0-75.0); Hemoglobin 14.9 g/dL (14.0-18.0); Mean Corpuscular HGB CONC 33.8 g/dL (32.0-36.0); Mean Corpuscular Hemoglobin 29.7 pg (27.0-31.0); Mean Corpuscular Volume 87.7 fL (78.0-98.0); Mean Platelet Volume 7.6 fL (7.4-10.4); Platelet Count 395 thou/uL (130-400); Red Blood Cell (RBC) Count 5.03 mill/uL (4.70-6.10)
[2022-03-02 06:45] LABS: Anion Gap 14 mmol/L (10-20); BUN (Urea Nitrogen) 14 mg/dL (8.4-25.7); Calc. Creatinine Clearance 154 mL/min (70-130); Calcium 9.5 mg/dL (7.8-10.44); Carbon Dioxide 25 mmol/L (22-29); Chloride 103 mmol/L (98-107); Glucose 233 mg/dL (70-105); Potassium 4.3 mmol/L (3.5-5.1); Sodium 138 mmol/L (136-145)
[2022-03-02] MEDS: Enoxaparin Sodium 40 MG/0.4 ML SYRINGE SC SCH (08:52)
[2022-03-02] MEDS: Insulin Glargine 30 UNITS/0.3 ML VIAL SC SCH ×2 (08:52→20:21)
[2022-03-02] MEDS: Aspirin 81 mg Enteric Coated Tablet PO SCH (08:53)
[2022-03-02] MEDS: Lisinopril 20 MG TAB PO SCH (08:53)
[2022-03-02] MEDS: Multivitamin W/ Minerals 1 TAB PO SCH (08:53)
[2022-03-02] MEDS: metFORMIN 500 MG TAB PO SCH ×2 (08:54→20:22)
[2022-03-02] MEDS: Clotrimazole 1 % Cream 30 GM TUBE TOP SCH ×2 (08:54→20:24)
[2022-03-02] MEDS: Amlodipine 5 MG TAB PO SCH ×2 (08:54→20:20)
[2022-03-02] MEDS: Cholecalciferol 1,000 UNITS (25 MCG) TAB PO SCH (08:54)
[2022-03-02] MEDS: Phenazopyridine HCl 100 MG TAB PO SCH ×2 (08:57→20:26)
[2022-03-02] MEDS: Acetaminophen 325 MG TAB PO PRN (09:01)
[2022-03-02] MEDS: HumaLOG 300 UNITS/3 ML VIAL SC PRN ×3 (13:49→19:36)
[2022-03-02] MEDS: Aquaphor 10 GM TUBE TOP PRN (13:49)
[2022-03-02] MEDS: metroNIDAZOLE 500 MG TAB PO SCH (20:22)
[2022-03-02] MEDS: Cefepime 2 GM in Sodium Chloride 0.9% 100 ML IVPB SCH (20:24)
[2022-03-03] MEDS: Morphine 4 MG/ML VIAL SLOW IVP PRN (04:13)
[2022-03-03 07:16] LABS: #Monocytes 0.6 thou/uL (0.11-0.59); #Neutrophils 10.1 thou/uL (1.40-6.50); %Eosinophils 0.2 % (0.0-10.0); %Lymphocytes 15.6 % (21.0-51.0); %Monocytes 4.7 % (0.0-10.0); %Neutrophils 79.6 % (42.0-75.0); Hemoglobin 15.3 g/dL (14.0-18.0); Mean Corpuscular HGB CONC 34.5 g/dL (32.0-36.0); Mean Corpuscular Hemoglobin 29.4 pg (27.0-31.0); Mean Corpuscular Volume 85.2 fL (78.0-98.0); Platelet Count 441 thou/uL (130-400); RBC Distribution Width 17.2 % (11.5-14.5); White Blood Cell (WBC) Count 12.7 thou/uL (4.8-10.8)
[2022-03-03 07:36] LABS: Anion Gap 16 mmol/L (10-20); BUN (Urea Nitrogen) 16 mg/dL (8.4-25.7); Calc. Creatinine Clearance 195 mL/min (70-130); Calcium 9.8 mg/dL (7.8-10.44); Carbon Dioxide 23 mmol/L (22-29); Chloride 102 mmol/L (98-107); Glucose 182 mg/dL (70-105); Potassium 4.2 mmol/L (3.5-5.1); Sodium 137 mmol/L (136-145)
[2022-03-03] MEDS: Insulin Glargine 30 UNITS/0.3 ML VIAL SC SCH ×2 (09:10→20:55)
[2022-03-03] MEDS: Enoxaparin Sodium 40 MG/0.4 ML SYRINGE SC SCH (09:10)
[2022-03-03] MEDS: Cefepime 2 GM in Sodium Chloride 0.9% 100 ML IVPB SCH ×2 (09:10→20:55)
[2022-03-03] MEDS: methylPREDNISolone Sod Succ 40 MG VIAL IVP SCH (09:10)
[2022-03-03] MEDS: metFORMIN 500 MG TAB PO SCH ×2 (09:11→20:59)
[2022-03-03] MEDS: Phenazopyridine HCl 100 MG TAB PO SCH ×2 (09:11→20:55)
[2022-03-03] MEDS: Acetaminophen 325 MG TAB PO PRN (09:11)
[2022-03-03] MEDS: Lisinopril 20 MG TAB PO SCH (09:11)
[2022-03-03] MEDS: Multivitamin W/ Minerals 1 TAB PO SCH (09:12)
[2022-03-03] MEDS: metroNIDAZOLE 500 MG TAB PO SCH ×2 (09:12→20:59)
[2022-03-03] MEDS: Aspirin 81 mg Enteric Coated Tablet PO SCH (09:12)
[2022-03-03] MEDS: Amlodipine 5 MG TAB PO SCH ×2 (09:12→20:59)
[2022-03-03] MEDS: Cholecalciferol 1,000 UNITS (25 MCG) TAB PO SCH (09:12)
[2022-03-03] MEDS: Clotrimazole 1 % Cream 30 GM TUBE TOP SCH ×2 (09:13→21:01)
[2022-03-03] MEDS: Aquaphor 10 GM TUBE TOP PRN (09:15)
[2022-03-03] MEDS: Ketorolac Tromethamine 30 MG/ML VIAL IVP PRN (10:52)
[2022-03-03] MEDS: HumaLOG 300 UNITS/3 ML VIAL SC PRN ×2 (12:55→16:03)
[2022-03-04] MEDS ORDERED: diphenhydrAMINE 25 MG CAP PO PRN (02:01)
[2022-03-04] MEDS: Ketorolac Tromethamine 30 MG/ML VIAL IVP PRN ×2 (02:03→08:58)
[2022-03-04 06:50] LABS: Anion Gap 15 mmol/L (10-20); BUN (Urea Nitrogen) 20 mg/dL (8.4-25.7); Calc. Creatinine Clearance 195 mL/min (70-130); Carbon Dioxide 23 mmol/L (22-29); Chloride 103 mmol/L (98-107); Glucose 126 mg/dL (70-105); Potassium 3.5 mmol/L (3.5-5.1); Sodium 137 mmol/L (136-145)
[2022-03-04 07:29] LABS: #Eosinphils 0.1 thou/uL (0.0-0.7); #Lymphocytes 3.3 thou/uL (1.20-3.40); #Monocytes 0.9 thou/uL (0.11-0.59); #Neutrophils 6.5 thou/uL (1.40-6.50); %Basophils 0.4 % (0.0-1.0); %Eosinophils 0.5 % (0.0-10.0); %Lymphocytes 30.4 % (21.0-51.0); %Monocytes 8.5 % (0.0-10.0); %Neutrophils 60.2 % (42.0-75.0); Hemoglobin 14.3 g/dL (14.0-18.0); Mean Corpuscular Volume 87.9 fL (78.0-98.0); Mean Platelet Volume 7.4 fL (7.4-10.4); Platelet Count 438 thou/uL (130-400); RBC Distribution Width 12.8 % (11.5-14.5); Red Blood Cell (RBC) Count 4.94 mill/uL (4.70-6.10); White Blood Cell (WBC) Count 10.7 thou/uL (4.8-10.8)
[2022-03-04] MEDS: Enoxaparin Sodium 40 MG/0.4 ML SYRINGE SC SCH (08:42)
[2022-03-04] MEDS: Aspirin 81 mg Enteric Coated Tablet PO SCH (08:42)
[2022-03-04] MEDS: Cholecalciferol 1,000 UNITS (25 MCG) TAB PO SCH (08:43)
[2022-03-04] MEDS: Cefepime 2 GM in Sodium Chloride 0.9% 100 ML IVPB SCH (08:43)
[2022-03-04] MEDS: Lisinopril 20 MG TAB PO SCH (08:44)
[2022-03-04] MEDS: Multivitamin W/ Minerals 1 TAB PO SCH (08:44)
[2022-03-04] MEDS: metFORMIN 500 MG TAB PO SCH (08:44)
[2022-03-04] MEDS: Amlodipine 5 MG TAB PO SCH (08:45)
[2022-03-04] MEDS: metroNIDAZOLE 500 MG TAB PO SCH (08:45)
[2022-03-04] MEDS: Insulin Glargine 30 UNITS/0.3 ML VIAL SC SCH (08:46)
[2022-03-04] MEDS: Clotrimazole 1 % Cream 30 GM TUBE TOP SCH (08:46)
[2022-03-04] MEDS: Phenazopyridine HCl 100 MG TAB PO SCH (11:33)
[2022-03-04 13:58] VITALS: BP 173/89; TEMP 98.1
== END 2022-03-04 14:05 | disposition home or self-care (01) | DRG 638 ==
LOC: MSONC 21:24 → T4-B 02-27 21:53
PROVIDERS: ADMIT Family Medicine; ATTEND Internal Medicine
PROC: 02HV33Z Insertion of Infusion Device into Superior Vena Cava, Percutaneous Approach (ICD-10-PCS; principal; 2022-03-04)
PROC: B548ZZA Ultrasonography of Superior Vena Cava, Guidance (ICD-10-PCS; 2022-03-04)
PROC: B5181ZA Fluoroscopy of Superior Vena Cava using Low Osmolar Contrast, Guidance (ICD-10-PCS; 2022-03-04)
DX: E11.69 Type 2 diabetes mellitus with other specified complication (principal); M86.8X7 Other osteomyelitis, ankle and foot; L03.116 Cellulitis of left lower limb; L51.1 Stevens-Johnson syndrome; E78.5 Hyperlipidemia, unspecified; I10 Essential (primary) hypertension; E11.40 Type 2 diabetes mellitus with diabetic neuropathy, unspecified; E56.9 Vitamin deficiency, unspecified; E11.610 Type 2 diabetes mellitus with diabetic neuropathic arthropathy; E11.319 Type 2 diabetes mellitus with unspecified diabetic retinopathy without macular edema; E11.621 Type 2 diabetes mellitus with foot ulcer; L97.529 Non-pressure chronic ulcer of other part of left foot with unspecified severity; E11.618 Type 2 diabetes mellitus with other diabetic arthropathy; I25.10 Atherosclerotic heart disease of native coronary artery without angina pectoris; E66.9 Obesity, unspecified; L27.1 Localized skin eruption due to drugs and medicaments taken internally; K12.1 Other forms of stomatitis; Z68.39 Body mass index [BMI] 39.0-39.9, adult; Z20.822 Contact with and (suspected) exposure to COVID-19; Z98.890 Other specified postprocedural states; Z89.411 Acquired absence of right great toe; Z88.8 Allergy status to other drugs, medicaments and biological substances; Z90.49 Acquired absence of other specified parts of digestive tract; Z79.899 Other long term (current) drug therapy; Z79.82 Long term (current) use of aspirin; Z88.2 Allergy status to sulfonamides; Z79.84 Long term (current) use of oral hypoglycemic drugs; Z79.4 Long term (current) use of insulin; Z82.49 Family history of ischemic heart disease and other diseases of the circulatory system
CPT/HCPCS: 36415; 36416; 36569; 80048; 80053; 80202; 81001; 82550; 83036; 84145; 85025; 86141; 87040; 87070; 87077; 87102; 87186; 87205; 87206; 93005; 93010; C1751; J0692; J0878; J1650; J1815; J1885; J2185; J2270; J2543; J2920; J3370; J3490; J7030; J7120; U0002; U0003; U0005

== ENCOUNTER 2022-06-07 11:34 | Outpatient (CLI) | payer BC | END 2022-06-07 11:35 | disposition home or self-care (01) | LOC: SCSMRI 11:34 | PROVIDERS: ATTEND Internal Medicine Infectious Disease | DX: M86.671 Other chronic osteomyelitis, right ankle and foot (principal); M86.272 Subacute osteomyelitis, left ankle and foot; L03.119 Cellulitis of unspecified part of limb ==

== ENCOUNTER 2022-09-11 14:59 | Outpatient (CLI) | payer BC | END 2022-09-11 15:00 | disposition home or self-care (01) | LOC: TBSIIMAG 14:59 | PROVIDERS: ATTEND Family Medicine | DX: L97.529 Non-pressure chronic ulcer of other part of left foot with unspecified severity (principal); M14.672 Charcot's joint, left ankle and foot; R60.0 Localized edema | CPT/HCPCS: A9579 ==

== ENCOUNTER 2023-01-23 13:09 | Outpatient (CLI) | payer OTHER | END 2023-01-23 13:10 | disposition home or self-care (01) | PROVIDERS: ATTEND Orthopaedic Surgery | DX: E11.621 Type 2 diabetes mellitus with foot ulcer (principal); L97.519 Non-pressure chronic ulcer of other part of right foot with unspecified severity; S91.302D Unspecified open wound, left foot, subsequent encounter ==

== ENCOUNTER 2023-06-13 07:42 | Outpatient (CLI) | payer BC | END 2023-06-13 07:43 | disposition home or self-care (01) | LOC: BICMRI 07:42 | PROVIDERS: ATTEND Neurological Surgery | DX: M47.22 Other spondylosis with radiculopathy, cervical region (principal); M54.50 Low back pain, unspecified; M47.816 Spondylosis without myelopathy or radiculopathy, lumbar region; M47.813 Spondylosis without myelopathy or radiculopathy, cervicothoracic region | CPT/HCPCS: 72141; 72148 ==

== ENCOUNTER 2024-05-24 16:02 | Inpatient (IN) | payer BC ==
[2024-05-24] MEDS ORDERED: Sodium Chloride 0.9% 100 ML ONE (17:26)
[2024-05-24] MEDS ORDERED: Piperacillin/Tazobactam 4.5 GM VIAL ONE (17:26)
[2024-05-24 17:56] LABS: #Basophils 0.08 10x3/uL (0.0-0.2); %Basophils 0.7 % (0.0-1.0); %Eosinophils 3.2 % (0.0-10.0); %Lymphocytes 29.5 % (21.0-51.0); %Neutrophils 59.2 % (42.0-75.0); Hematocrit 41.6 % (42.0-52.0); Hemoglobin 13.2 g/dL (14.0-18.0); Mean Corpuscular HGB CONC 31.7 g/dL (32.0-36.0); Mean Corpuscular Hemoglobin 26.1 pg (27.0-31.0); Mean Corpuscular Volume 82.2 fL (78.0-98.0); Mean Platelet Volume 9.8 fL (7.4-10.4); Platelet Count 528 10x3/uL (130-400); RBC Distribution Width 14.5 % (11.5-14.5); Red Blood Cell (RBC) Count 5.06 mill/uL (4.70-6.10)
[2024-05-24 18:34] LABS: ALT (SGPT) 33 U/L (8-55); AST (SGOT) 29 U/L (5-34); Albumin 3.1 g/dL (3.5-5.0); Alkaline Phosphatase 85 U/L (40-110); Anion Gap 16 mmol/L (10-20); BUN (Urea Nitrogen) 13 mg/dL (8.4-25.7); Bilirubin, Total 0.2 mg/dL (0.2-1.2); Calc. Creatinine Clearance 0 mL/min (70-130); Calcium 9.6 mg/dL (7.8-10.44); Carbon Dioxide 20 mmol/L (22-29); Chloride 103 mmol/L (98-107); Estimated GFR 102; Globulin 4.2 g/dL (2.4-3.5); Glucose 196 mg/dL (70-105); Potassium 4.2 mmol/L (3.5-5.1); Protein, Total 7.3 g/dL (6.0-8.3); Sodium 135 mmol/L (136-145)
[2024-05-24] MEDS ORDERED: Ondansetron PF 4 MG/2 ML Vial IVP PRN (20:56)
[2024-05-24] MEDS ORDERED: Dextrose 5% in Water 1,000 ML IV PRN (20:56)
[2024-05-24] MEDS ORDERED: Dextrose 50% Abboject 50 ML SYRINGE SLOW IVP PRN (20:56)
[2024-05-24] MEDS ORDERED: Glucagon 1 MG/ML KIT IM PRN (20:56)
[2024-05-24] MEDS ORDERED: Ondansetron ODT 4 MG TAB PO PRN (20:56)
[2024-05-24] MEDS ORDERED: Insulin Lispro 100 UNIT/ML 10 ML VIAL SC PRN ×2 (21:17)
[2024-05-24] MEDS: Sodium Chloride 0.9% 1,000 ML IV SCH (22:16)
[2024-05-24] MEDS: Piperacillin/Tazobactam 3.375 GM in Sodium Chloride 0.9% 100 ML IVPB SCH (22:16)
[2024-05-24] MEDS: Ketorolac Tromethamine 30 MG (1 mL) VIAL IVP PRN (22:20)
[2024-05-24 23:16] LABS: Lactic Acid 1.9 mmol/L (0.5-2.2)
[2024-05-24 23:46] VITALS: BMI 36.2
[2024-05-25] MEDS: Dextrose 5%-Lactated Ringers 1,000 ML IV SCH (06:01)
[2024-05-25 06:04] LABS: %Basophils 0.8 % (0.0-1.0); %Lymphocytes 23.9 % (21.0-51.0); %Monocytes 7.8 % (0.0-10.0); %Neutrophils 64.3 % (42.0-75.0); Hemoglobin 13.4 g/dL (14.0-18.0); Mean Corpuscular HGB CONC 31.2 g/dL (32.0-36.0); Mean Corpuscular Hemoglobin 25.9 pg (27.0-31.0); Mean Platelet Volume 10.1 fL (7.4-10.4); Platelet Count 560 10x3/uL (130-400); RBC Distribution Width 14.5 % (11.5-14.5); Red Blood Cell (RBC) Count 5.18 mill/uL (4.70-6.10)
[2024-05-25 06:37] LABS: Anion Gap 17 mmol/L (10-20); BUN (Urea Nitrogen) 13 mg/dL (8.4-25.7); Calc. Creatinine Clearance 158 mL/min (70-130); Calcium 9.5 mg/dL (7.8-10.44); Carbon Dioxide 24 mmol/L (22-29); Chloride 103 mmol/L (98-107); Estimated GFR 100; Glucose 128 mg/dL (70-105); Potassium 4.6 mmol/L (3.5-5.1); Sodium 139 mmol/L (136-145)
[2024-05-25] MEDS: Gabapentin 400 MG CAP PO SCH (09:13)
[2024-05-25] MEDS: Empagliflozin 25 MG TAB PO SCH (09:13)
[2024-05-25] MEDS: Amlodipine 5 MG TAB PO SCH (09:13)
[2024-05-25] MEDS: Amitriptyline HCl 10 MG TAB PO SCH (09:13)
[2024-05-25] MEDS: Lisinopril 20 MG TAB PO SCH (09:13)
[2024-05-25] MEDS: Colestipol 1 GM TAB PO SCH (09:14)
[2024-05-25] MEDS ORDERED: fentaNYL PF 100 MCG/2 ML SYRINGE ONE (10:34)
[2024-05-25] MEDS ORDERED: Rocuronium Bromide 10 MG/ML (10ML VIAL) ONE (10:34)
[2024-05-25] MEDS ORDERED: Lidocaine 2% PF 5 ML VIAL ONE (10:34)
[2024-05-25] MEDS ORDERED: PROPOFOL 20 ML ONE ×2 (10:34→12:31)
[2024-05-25] MEDS ORDERED: diphenhydrAMINE 50 MG/ML VIAL ONE (11:32)
[2024-05-25] MEDS ORDERED: SUGAMMADEX SODIUM 200 MG/2 ML VIAL ONE ×2 (11:32→12:36)
[2024-05-25] MEDS ORDERED: Ondansetron PF 4 MG/2 ML Vial ONE (11:32)
[2024-05-25] MEDS ORDERED: Bupivacaine 0.25% HCL 30 ML VIAL ONE (11:41)
[2024-05-25] MEDS ORDERED: Gentamicin 80 MG/2 ML VIAL ONE (11:45)
[2024-05-25] MEDS ORDERED: HYDROmorphone 2 MG/ML VIAL ONE (12:00)
[2024-05-25] MEDS: Linezolid 600 MG in Premix 1 BAG IVPB SCH (12:39)
[2024-05-25] MEDS ORDERED: Ondansetron HCl/PF 4 MG/2 ML Vial IVP PRN (12:58)
[2024-05-25] MEDS ORDERED: Promethazine HCl 25 MG/ML VIAL IM PRN (12:58)
[2024-05-25] MEDS ORDERED: fentaNYL 50 mcg/mL 1 mL Vial ONE (13:12)
[2024-05-25] MEDS ORDERED: Morphine 4 MG/ML VIAL SLOW IVP PRN (15:52)
[2024-05-25] MEDS: Lactated Ringer's 1,000 ML IV SCH (16:03)
[2024-05-25] MEDS: metFORMIN 500 MG TAB PO SCH (17:25)
[2024-05-25] MEDS: HYDROcodone/Acetaminophen 7.5/325 mg Tablet PO PRN (17:26)
[2024-05-25] MEDS: Acetaminophen 325 MG TAB PO PRN (20:41)
[2024-05-26] MEDS: hydrALAZINE 20 MG/ML VIAL SLOW IVP SCH (05:15)
[2024-05-26 06:13] LABS: #Basophils 0.04 10x3/uL (0.0-0.2); %Basophils 0.4 % (0.0-1.0); %Eosinophils 3.5 % (0.0-10.0); %Lymphocytes 22.5 % (21.0-51.0); %Monocytes 8.2 % (0.0-10.0); %Neutrophils 64.4 % (42.0-75.0); Hematocrit 38.6 % (42.0-52.0); Hemoglobin 12.1 g/dL (14.0-18.0); Mean Corpuscular HGB CONC 31.3 g/dL (32.0-36.0); Mean Corpuscular Hemoglobin 26.2 pg (27.0-31.0); Mean Corpuscular Volume 83.5 fL (78.0-98.0); Platelet Count 436 10x3/uL (130-400); RBC Distribution Width 14.6 % (11.5-14.5); Red Blood Cell (RBC) Count 4.62 mill/uL (4.70-6.10)
[2024-05-26 06:26] LABS: Anion Gap 13 mmol/L (10-20); BUN (Urea Nitrogen) 15 mg/dL (8.4-25.7); Calc. Creatinine Clearance 153 mL/min (70-130); Carbon Dioxide 23 mmol/L (22-29); Chloride 106 mmol/L (98-107); Estimated GFR 99; Glucose 146 mg/dL (70-105); Potassium 4.1 mmol/L (3.5-5.1); Sodium 138 mmol/L (136-145)
[2024-05-26] MEDS: Pantoprazole DR 40 MG TAB PO SCH (08:30)
[2024-05-26] MEDS: Loperamide HCl 2 MG CAP PO PRN (12:17)
[2024-05-26] MEDS: Saccharomyces boulardii 250 MG CAP PO SCH (17:08)
[2024-05-26] MEDS ORDERED: Saccharomyces boulardii 250 MG CAP PO SCH (21:00)
[2024-05-26] MEDS: metroNIDAZOLE 500 MG TAB PO SCH (21:23)
[2024-05-27 04:11] LABS: #Basophils 0.04 10x3/uL (0.0-0.2); %Basophils 0.4 % (0.0-1.0); %Eosinophils 5.9 % (0.0-10.0); %Lymphocytes 27.1 % (21.0-51.0); %Monocytes 7.4 % (0.0-10.0); %Neutrophils 58.8 % (42.0-75.0); Hematocrit 39.3 % (42.0-52.0); Hemoglobin 12.5 g/dL (14.0-18.0); Mean Corpuscular HGB CONC 31.8 g/dL (32.0-36.0); Mean Corpuscular Hemoglobin 25.4 pg (27.0-31.0); Mean Corpuscular Volume 79.9 fL (78.0-98.0); Mean Platelet Volume 10.3 fL (7.4-10.4); Platelet Count 458 10x3/uL (130-400); RBC Distribution Width 14.5 % (11.5-14.5); Red Blood Cell (RBC) Count 4.92 mill/uL (4.70-6.10)
[2024-05-27 04:33] LABS: Anion Gap 16 mmol/L (10-20); BUN (Urea Nitrogen) 11 mg/dL (8.4-25.7); Calc. Creatinine Clearance 166 mL/min (70-130); Calcium 9.1 mg/dL (7.8-10.44); Carbon Dioxide 22 mmol/L (22-29); Chloride 106 mmol/L (98-107); Estimated GFR 102; Glucose 90 mg/dL (70-105); Potassium 3.8 mmol/L (3.5-5.1); Sodium 140 mmol/L (136-145)
[2024-05-27] MEDS ORDERED: Diphenoxylate HCl/Atropine Tablet PO PRN (09:34)
[2024-05-27] MEDS: Loperamide HCl 2 MG CAP PO SCH ×2 (10:13→14:19)
[2024-05-27] MEDS: Diphenoxylate HCl/Atropine Tablet PO SCH (10:13)
[2024-05-27] MEDS: Saccharomyces boulardii 250 MG CAP PO SCH (10:14)
[2024-05-27] MEDS: HYDROcodone/Acetaminophen 10/325 mg Tablet PO PRN (10:16)
[2024-05-28 09:37] LABS: #Basophils 0.09 10x3/uL (0.0-0.2); %Eosinophils 9.6 % (0.0-10.0); %Lymphocytes 22.4 % (21.0-51.0); %Monocytes 7.4 % (0.0-10.0); %Neutrophils 59.3 % (42.0-75.0); Hemoglobin 12.6 g/dL (14.0-18.0); Mean Corpuscular HGB CONC 31.5 g/dL (32.0-36.0); Mean Corpuscular Hemoglobin 25.8 pg (27.0-31.0); Mean Corpuscular Volume 81.8 fL (78.0-98.0); Mean Platelet Volume 9.7 fL (7.4-10.4); Platelet Count 450 10x3/uL (130-400); RBC Distribution Width 14.3 % (11.5-14.5); Red Blood Cell (RBC) Count 4.89 mill/uL (4.70-6.10)
[2024-05-28 14:39] LABS: Fungus Stain Final report (.)
[2024-05-28 17:07] VITALS: BP 130/72; TEMP 98.1
== END 2024-05-28 18:45 | disposition home or self-care (01) | DRG 674 ==
LOC: ERS 16:02 → T4-B 20:34
PROVIDERS: ADMIT Student in an Organized Health Care Education/Training Program; ATTEND Family Medicine
PROC: 0VPS0JZ Removal of Synthetic Substitute from Penis, Open Approach (ICD-10-PCS; principal; 2024-05-25)
DX: T83.61XA Infection and inflammatory reaction due to implanted penile prosthesis, initial encounter (principal); A04.72 Enterocolitis due to Clostridium difficile, not specified as recurrent; E87.20 Acidosis, unspecified; I10 Essential (primary) hypertension; Z98.890 Other specified postprocedural states; E66.01 Morbid (severe) obesity due to excess calories; Z68.36 Body mass index [BMI] 36.0-36.9, adult; E78.5 Hyperlipidemia, unspecified; Z88.2 Allergy status to sulfonamides; Z88.8 Allergy status to other drugs, medicaments and biological substances; Z79.899 Other long term (current) drug therapy; Z79.4 Long term (current) use of insulin; E11.65 Type 2 diabetes mellitus with hyperglycemia; E11.40 Type 2 diabetes mellitus with diabetic neuropathy, unspecified; Z89.512 Acquired absence of left leg below knee
CPT/HCPCS: 36415; 36416; 80048; 80053; 83605; 85025; 87040; 87070; 87077; 87102; 87186; 87205; 87206; 87324; 87449; 87493; 96374; A4314; J0665; J1170; J1200; J1580; J1885; J2001; J2405; J2543; J2704; J3010; J3490; J7050; J7120

== ENCOUNTER 2025-07-27 13:20 | Inpatient (IN) | payer BC ==
[2025-07-27] MEDS ORDERED: Cefepime 2 GM VIAL ONE (14:56)
[2025-07-27 15:27] LABS: #Basophils 0.07 10x3/uL (0.0-0.2); #Eosinophils Less than 0.03 10x3/uL (0.0-0.7); #Monocytes 1.07 10x3/uL (0.11-0.59); #Neutrophils 14.97 10x3/uL (1.40-6.50); %Basophils 0.4 % (0.0-1.0); %Eosinophils 0.0 % (0.0-10.0); %Lymphocytes 8.1 % (21.0-51.0); %Monocytes 6.1 % (0.0-10.0); %Neutrophils 84.7 % (42.0-75.0); Hematocrit 42.9 % (42.0-52.0); Hemoglobin 13.0 g/dL (14.0-18.0); Mean Corpuscular Hemoglobin 23.0 pg (27.0-31.0); Mean Corpuscular Volume 75.8 fL (78.0-98.0); Platelet Count 357 10x3/uL (130-400); Red Blood Cell (RBC) Count 5.66 mill/uL (4.70-6.10); White Blood Cell (WBC) Count 17.66 10x3/uL (4.8-10.8)
[2025-07-27 16:00] LABS: ALT (SGPT) 41 U/L (Less than 45); AST (SGOT) 91 U/L (11-34); Albumin 3.4 g/dL (3.1-4.5); Alkaline Phosphatase 85 U/L (40-110); Anion Gap 21 mmol/L (10-20); BUN (Urea Nitrogen) 13 mg/dL (8.4-25.7); Bilirubin, Total 0.4 mg/dL (0.3-1.2); Calc. Creatinine Clearance 0 mL/min (70-130); Calcium 9.8 mg/dL (7.8-10.44); Carbon Dioxide 21 mmol/L (22-29); Chloride 95 mmol/L (98-107); Globulin 4.0 g/dL (2.4-3.5); Glucose 415 mg/dL (70-105); Potassium 4.5 mmol/L (3.5-5.1); Sodium 132 mmol/L (136-145)
[2025-07-27 16:48] LABS: Actual Bicarbonate (HCO3v) 20.3 mEq/L (22-28); Base Excess -4.8 mEq/L (-2.0 to +3.0); Calcium, Ionized (venous) 1.14 mmol/L (1.16-1.32); Chloride (VBG) 98 mmol/L (98-106); Hematocrit-VBG 41 % (42.0-52.0); Hemoglobin (Hb) 14.0 g/dL (13.1-17.2); Potassium (VBG) 4.38 mmol/L (3.70-5.30); Sodium 132 mmol/L (133-146)
[2025-07-27] MEDS ORDERED: Melatonin 3 MG TAB PO PRN (17:01)
[2025-07-27] MEDS ORDERED: Senokot S 8.6-50 MG TAB PO PRN (17:01)
[2025-07-27] MEDS: Clindamycin/D5W 900 MG in Premix 1 BAG IVPB SCH (18:20)
[2025-07-27] MEDS ORDERED: Glucagon 1 MG/ML KIT IM PRN (20:55)
[2025-07-27] MEDS ORDERED: Dextrose 50% Abboject 50 ML SYRINGE SLOW IVP PRN (20:55)
[2025-07-27 21:08] VITALS: BMI 36.9
[2025-07-27] MEDS: Linezolid 600 MG TAB PO SCH (21:10)
[2025-07-27] MEDS: Acetaminophen 325 MG TAB PO PRN (21:10)
[2025-07-27] MEDS: Heparin 5,000 UNITS/ML VIAL SC SCH (21:10)
[2025-07-28 06:41] LABS: #Basophils 0.10 10x3/uL (0.0-0.2); #Eosinophils 0.06 10x3/uL (0.0-0.7); #Monocytes 1.10 10x3/uL (0.11-0.59); #Neutrophils 10.71 10x3/uL (1.40-6.50); %Basophils 0.7 % (0.0-1.0); %Eosinophils 0.4 % (0.0-10.0); %Lymphocytes 13.0 % (21.0-51.0); %Monocytes 7.9 % (0.0-10.0); %Neutrophils 77.4 % (42.0-75.0); Hematocrit 42.0 % (42.0-52.0); Hemoglobin 12.5 g/dL (14.0-18.0); Mean Corpuscular Hemoglobin 22.9 pg (27.0-31.0); Mean Corpuscular Volume 76.8 fL (78.0-98.0); Platelet Count 330 10x3/uL (130-400); Red Blood Cell (RBC) Count 5.47 mill/uL (4.70-6.10); White Blood Cell (WBC) Count 13.87 10x3/uL (4.8-10.8)
[2025-07-28 06:55] LABS: Anion Gap 17 mmol/L (10-20); BUN (Urea Nitrogen) 13 mg/dL (8.4-25.7); Calc. Creatinine Clearance 128 mL/min (70-130); Calcium 9.1 mg/dL (7.8-10.44); Carbon Dioxide 21 mmol/L (22-29); Chloride 102 mmol/L (98-107); Glucose 161 mg/dL (70-105); Potassium 4.7 mmol/L (3.5-5.1); Sodium 135 mmol/L (136-145)
[2025-07-28] MEDS ORDERED: HYDROcodone/Acetaminophen 5/325 mg Tablet PO PRN (13:39)
[2025-07-28] MEDS: Aspirin 81 mg Enteric Coated Tablet PO SCH (15:11)
[2025-07-28] MEDS: Colestipol 1 GM TAB PO SCH (16:19)
[2025-07-28 22:16] LABS: #Basophils 0.08 10x3/uL (0.0-0.2); #Eosinophils 0.20 10x3/uL (0.0-0.7); #Monocytes 0.92 10x3/uL (0.11-0.59); #Neutrophils 6.58 10x3/uL (1.40-6.50); %Basophils 0.8 % (0.0-1.0); %Eosinophils 2.0 % (0.0-10.0); %Lymphocytes 21.5 % (21.0-51.0); %Monocytes 9.1 % (0.0-10.0); %Neutrophils 65.2 % (42.0-75.0); Hematocrit 40.6 % (42.0-52.0); Hemoglobin 12.2 g/dL (14.0-18.0); Mean Corpuscular Hemoglobin 23.2 pg (27.0-31.0); Mean Corpuscular Volume 77.2 fL (78.0-98.0); Platelet Count 345 10x3/uL (130-400); Red Blood Cell (RBC) Count 5.26 mill/uL (4.70-6.10); White Blood Cell (WBC) Count 10.09 10x3/uL (4.8-10.8)
[2025-07-28 22:33] LABS: Anion Gap 15 mmol/L (10-20); BUN (Urea Nitrogen) 12 mg/dL (8.4-25.7); Calc. Creatinine Clearance 148 mL/min (70-130); Calcium 8.9 mg/dL (7.8-10.44); Carbon Dioxide 23 mmol/L (22-29); Chloride 102 mmol/L (98-107); Glucose 225 mg/dL (70-105); Potassium 4.0 mmol/L (3.5-5.1); Sodium 136 mmol/L (136-145)
[2025-07-28 22:44] LABS: CRP, High Sensitivity at Bryan 19.02 mg/dL (< or = 0.5)
[2025-07-29] MEDS ORDERED: Dapagliflozin Propanediol 10 MG TAB PO SCH (09:00)
[2025-07-29] MEDS: Cholecalciferol 1,000 UNITS (25 MCG) TAB PO SCH (09:21)
[2025-07-29] MEDS: Aspirin Chewable 81 MG TAB PO SCH (09:22)
[2025-07-29] MEDS: Pantoprazole 40 MG DR.TAB PO SCH (09:22)
[2025-07-29] MEDS: Multivit, Therapeutic 1 TAB PO SCH (09:22)
[2025-07-29] MEDS: Colestipol 1 GM TAB PO SCH (09:22)
[2025-07-29] MEDS: Gabapentin 400 MG CAP PO SCH (12:54)
[2025-07-29] MEDS: Linezolid 600 MG in Premix 1 BAG IVPB SCH (20:46)
[2025-07-30 07:05] LABS: #Basophils 0.08 10x3/uL (0.0-0.2); #Eosinophils 0.20 10x3/uL (0.0-0.7); #Monocytes 0.54 10x3/uL (0.11-0.59); #Neutrophils 3.57 10x3/uL (1.40-6.50); %Basophils 1.3 % (0.0-1.0); %Eosinophils 3.1 % (0.0-10.0); %Lymphocytes 28.9 % (21.0-51.0); %Monocytes 8.5 % (0.0-10.0); %Neutrophils 56.2 % (42.0-75.0); Hematocrit 41.9 % (42.0-52.0); Hemoglobin 12.8 g/dL (14.0-18.0); Mean Corpuscular Hemoglobin 23.2 pg (27.0-31.0); Mean Corpuscular Volume 76.0 fL (78.0-98.0); Platelet Count 326 10x3/uL (130-400); Red Blood Cell (RBC) Count 5.51 mill/uL (4.70-6.10); White Blood Cell (WBC) Count 6.36 10x3/uL (4.8-10.8)
[2025-07-30 07:31] LABS: ALT (SGPT) 64 U/L (Less than 45); AST (SGOT) 112 U/L (11-34); Albumin 3.0 g/dL (3.1-4.5); Alkaline Phosphatase 72 U/L (40-110); Anion Gap 13 mmol/L (10-20); BUN (Urea Nitrogen) 8 mg/dL (8.4-25.7); Bilirubin, Total 0.2 mg/dL (0.3-1.2); Calc. Creatinine Clearance 165 mL/min (70-130); Calcium 9.0 mg/dL (7.8-10.44); Carbon Dioxide 24 mmol/L (22-29); Chloride 102 mmol/L (98-107); Globulin 4.1 g/dL (2.4-3.5); Glucose 156 mg/dL (70-105); Iron 29 ug/dL (65-175); Iron Binding Capacity, Total 331 mcg/dL (261-462); Potassium 3.5 mmol/L (3.5-5.1); Sodium 135 mmol/L (136-145)
[2025-07-30] MEDS ORDERED: Non-Formulary Item 1 EACH (Lisinopril [Zestril] 40 MG Tablet) PO SCH (09:00)
[2025-07-30] MEDS: Lisinopril 20 MG TAB PO SCH (09:19)
[2025-07-30 09:25] VITALS: BP 157/70; TEMP 98.3
== END 2025-07-30 13:00 | disposition home or self-care (01) | DRG 872 ==
LOC: ERS 13:20 → T4-B 17:21
PROVIDERS: ADMIT Internal Medicine; ATTEND Family Medicine
DX: A41.9 Sepsis, unspecified organism (principal); L03.115 Cellulitis of right lower limb; E11.40 Type 2 diabetes mellitus with diabetic neuropathy, unspecified; R65.20 Severe sepsis without septic shock; E11.65 Type 2 diabetes mellitus with hyperglycemia; E66.01 Morbid (severe) obesity due to excess calories; I10 Essential (primary) hypertension; E78.5 Hyperlipidemia, unspecified; E11.51 Type 2 diabetes mellitus with diabetic peripheral angiopathy without gangrene; Z88.2 Allergy status to sulfonamides; Z88.1 Allergy status to other antibiotic agents; Z88.8 Allergy status to other drugs, medicaments and biological substances; Z98.890 Other specified postprocedural states; Z89.421 Acquired absence of other right toe(s); Z90.49 Acquired absence of other specified parts of digestive tract; Z82.49 Family history of ischemic heart disease and other diseases of the circulatory system; Z68.37 Body mass index [BMI] 37.0-37.9, adult; Z79.899 Other long term (current) drug therapy; Z79.82 Long term (current) use of aspirin; Z79.84 Long term (current) use of oral hypoglycemic drugs
CPT/HCPCS: 36415; 36416; 80048; 80053; 82010; 82728; 82805; 83540; 83550; 83605; 85025; 86141; 87040; 96361; 96365; 96375; J0692; J1644; J2020; J2543; J3490; J7030; J7120